=== PATIENT | female | born 1995 | race African-American/Black ===

== ENCOUNTER 2022-08-26 18:58 | Observation (INO) | payer BC ==
[~2022-08-26] VITALS: Ht 165.1 cm; Wt 74.0 kg
[2022-08-26] MEDS ORDERED: HYDR500C3 PO (19:06)
[2022-08-26] MEDS ORDERED: PENI500T PO (19:06)
[2022-08-26] MEDS ORDERED: FOLI1TAB11 PO (19:06)
[2022-08-26] MEDS ORDERED: ONDANSETRON 4MG 2ML VIAL IV ONE (20:20)
[2022-08-26] MEDS ORDERED: MORPHINE 4 MG/ML 1ML VIAL IV ONE ×4 (20:20→23:10)
[2022-08-26] MEDS ORDERED: NS 1,000 ML IV ONE ×2 (20:20→21:05)
[2022-08-26 20:48] LABS: ALBUMIN 3.8 G/DL (3.2-5.2); BILIRUBIN,DIRECT 0.6 MG/DL (<0.4); BILIRUBIN,TOTAL 5.4 MG/DL (0.3-1.2); TOTAL PROTEIN 6.9 G/DL (5.7-8.2)
[2022-08-26 20:52] LABS: MEAN CORPUSCULAR HEMOGLOBIN 35.1 pg (27.0-33.0); MEAN CORPUSCULAR VOLUME 90.4 fl (80.0-96.0); PLATELET COUNT, AUTOMATED 447 10^3/uL (150-450); RED BLOOD COUNT 1.88 10^6/uL (4.00-5.40); WHITE BLOOD COUNT 11.9 10^3/uL (4.0-10.0)
[2022-08-26 20:57] LABS: HEMOGLOBIN 6.6 g/dl (12.0-15.5)
[2022-08-26 20:59] LABS: MEAN CORPUSCULAR HGB CONC 38.8 g/dl (32.0-36.5)
[2022-08-26 21:15] LABS: PLATELET ESTIMATE INCREASED (NORMAL)
[2022-08-26 21:25] LABS: ANISOCYTOSIS 4+; BASOPHILS 3 % (0-1); EOSINOPHILS 12 % (0-3); LYMPHOCYTES 53 % (16-44); NEUTROPHILS 31 % (28-66)
[2022-08-26 21:27] LABS: MONOCYTES 1 % (0-5); SICKLE CELLS 4+
[2022-08-26 21:29] LABS: GIANT PLATELETS 1+
[2022-08-26 21:30] LABS: OVALOCYTES 2+
[2022-08-26 23:00] VITALS: BP 108/55
[2022-08-26 23:15] VITALS: BP 109/56
[2022-08-26] MEDS ORDERED: PERCOCET 5MG/325MG TAB PO ONE (23:25)
[2022-08-26] MEDS ORDERED: HOME MED LIST COMPLETE! XX SCH (23:45)
[2022-08-26] MEDS ORDERED: PROMETHAZINE 25MG/ML 1ML VIAL IV PRN (23:45)
[2022-08-26] MEDS ORDERED: ACETAMINOPHEN TAB 650MG DOSE (2X325MG) PO PRN (23:45)
[2022-08-26] MEDS ORDERED: NORCO, ANEXSIA 5/325MG TABLET (HYDROcodone/ACETAMINOPHEN) PO PRN (23:45)
[2022-08-27 00:17] LABS: RSV AMPLIFICATION NEGATIVE (NEGATIVE)
[2022-08-27 00:58] VITALS: BP 110/74
[2022-08-27 01:18] VITALS: BP 112/60
[2022-08-27] MEDS: NS 1,000 ML IV SCH ×2 (01:20→09:13)
[2022-08-27] MEDS: MORPHINE 4 MG/ML 1ML VIAL IV PRN ×2 (02:49→09:13)
[2022-08-27 06:05] VITALS: BP 112/58
[2022-08-27 07:14] LABS: MEAN CORPUSCULAR HEMOGLOBIN 34.3 pg (27.0-33.0); MEAN CORPUSCULAR HGB CONC 37.2 g/dl (32.0-36.5); MEAN CORPUSCULAR VOLUME 92.2 fl (80.0-96.0); PLATELET COUNT, AUTOMATED 393 10^3/uL (150-450); RED BLOOD COUNT 2.04 10^6/uL (4.00-5.40); WHITE BLOOD COUNT 10.7 10^3/uL (4.0-10.0)
[2022-08-27 07:16] LABS: HEMATOCRIT 18.8 % (36.0-47.0)
[2022-08-27 07:17] LABS: ALBUMIN 3.2 G/DL (3.2-5.2); ALKALINE PHOSPHATASE 51 U/L (46-116); ALT/SGPT 19 U/L (7.0-40); AST/SGOT 44 U/L (<34); BILIRUBIN,TOTAL 3.7 MG/DL (0.3-1.2); BLOOD UREA NITROGEN 12 MG/DL (9-23); CALCIUM LEVEL 8.3 MG/DL (8.5-10.1); CARBON DIOXIDE LEVEL 23 MMOL/L (20-31); CHLORIDE LEVEL 112 MMOL/L (98-107); CREATININE FOR GFR 0.43 MG/DL (0.55-1.30); GLOMERULAR FILTRATION RATE > 60.0 (>60); GLUCOSE, FASTING 92 MG/DL (60-100); POTASSIUM SERUM 4.7 MMOL/L (3.5-5.1); SODIUM LEVEL 139 MMOL/L (136-145); TOTAL PROTEIN 6.1 G/DL (5.7-8.2)
[2022-08-27] MEDS ORDERED: ENOXAPARIN 40MG/0.4ML SYRINGE (J1650 PER 10MG) SC SCH (09:00)
[2022-08-27] MEDS ORDERED: NORCO, ANEXSIA 5/325MG TABLET (HYDROcodone/ACETAMINOPHEN) PO PRN (12:10)
[2022-08-27 12:27] LABS: LDH LACTATE DEHYDROGENASE 661 U/L (120-246)
[2022-08-27] MEDS ORDERED: HYDR-3715 PO (12:40)
[2022-08-27] MEDS ORDERED: diphenhydrAMINE 25MG CAP PO ONE (13:30)
[2022-08-27 13:36] LABS: IRON (FE) 86 UG/DL (50-170); PERCENT SATURATION 35.8 % (13.2-45.0); TOTAL IRON BINDING CAPACITY 240 UG/DL (250-425)
[2022-08-27 13:37] LABS: FERRITIN 325.7 NG/ML (7.3-270.7)
== END 2022-08-27 13:50 | disposition home or self-care (01) ==
LOC: M ED 18:58 → M ED INP 18:59 → M MS5PR 08-27 01:12
PROVIDERS: ADMIT Family Medicine; ATTEND Internal Medicine Nephrology
DX: D57.00 Hb-SS disease with crisis, unspecified (principal); M54.9 Dorsalgia, unspecified; J45.909 Unspecified asthma, uncomplicated; E80.6 Other disorders of bilirubin metabolism; Z90.81 Acquired absence of spleen; K80.20 Calculus of gallbladder without cholecystitis without obstruction; Z87.19 Personal history of other diseases of the digestive system; Z79.899 Other long term (current) drug therapy; Z79.2 Long term (current) use of antibiotics
CPT/HCPCS: 36415; 36430; 80047; 80053; 80076; 81001; 82728; 83550; 83615; 83690; 84702; 85025; 85027; 85046; 86850; 86900; 86901; 86920; 87086; 87631; 96372; 96374; 96375; 96376; 99285; J1650; J2405; P9016

== ENCOUNTER 2022-11-11 10:32 | Inpatient (IN) | payer BC ==
[~2022-11-11] VITALS: Ht 167.6 cm; Wt 82.4 kg
[2022-11-11] MEDS: FOLIC ACID 1MG TAB PO SCH (09:00)
[~2022-11-11 10:32] MED LIST: FOLI1TAB11 PO; HYDR-3715 PO; HYDR500C3 PO; PENI500T PO
[2022-11-11] MEDS ORDERED: ONDANSETRON 4MG 2ML VIAL IV ONE (13:05)
[2022-11-11] MEDS: MORPHINE 4 MG/ML 1ML VIAL IV PRN ×4 (13:28→17:56)
[2022-11-11 13:36] LABS: BASO # 0.1 10^3/uL (0.0-0.2); EOS # 0.9 10^3/uL (0.0-0.5); EOS % 8.3 % (0.0-3.0); LYMPH # 3.4 10^3/uL (1.5-5.0); LYMPH % 32.8 % (24.0-44.0); MEAN CORPUSCULAR HEMOGLOBIN 34.2 pg (27.0-33.0); MEAN CORPUSCULAR VOLUME 92.5 fl (80.0-96.0); MONO # 0.7 10^3/uL (0.0-0.8); MONO % 6.9 % (2.0-8.0); NEUTROPHILS # 5.2 10^3/uL (1.5-8.5); NEUTROPHILS % 50.5 % (36.0-66.0); PLATELET COUNT, AUTOMATED 457 10^3/uL (150-450); RED BLOOD COUNT 1.99 10^6/uL (4.00-5.40); WHITE BLOOD COUNT 10.4 10^3/uL (4.0-10.0)
[2022-11-11 13:42] LABS: HEMATOCRIT 18.4 % (36.0-47.0); HEMOGLOBIN 6.8 g/dl (12.0-15.5)
[2022-11-11 13:50] LABS: INR 1.06
[2022-11-11 13:51] LABS: PARTIAL THROMBOPLASTIN TIME 27.2 SECONDS (24.8-34.2)
[2022-11-11 13:54] LABS: LIPASE 27 U/L (12-53)
[2022-11-11 13:56] LABS: ALBUMIN 3.9 G/DL (3.2-5.2); ALKALINE PHOSPHATASE 60 U/L (46-116); ALT/SGPT 26 U/L (7.0-40); AST/SGOT 43 U/L (<34); BILIRUBIN,DIRECT 0.6 MG/DL (<0.4); BLOOD UREA NITROGEN 9 MG/DL (9-23); CALCIUM LEVEL 8.7 MG/DL (8.5-10.1); CARBON DIOXIDE LEVEL 21 MMOL/L (20-31); CHLORIDE LEVEL 112 MMOL/L (98-107); CK-MB VALUE MASS < 1.0 NG/ML (<3.6); CREATININE FOR GFR 0.45 MG/DL (0.55-1.30); GLOMERULAR FILTRATION RATE > 60.0 (>60); GLUCOSE, FASTING 79 MG/DL (60-100); POTASSIUM SERUM 4.3 MMOL/L (3.5-5.1); SODIUM LEVEL 140 MMOL/L (136-145); TOTAL PROTEIN 7.1 G/DL (5.7-8.2)
[2022-11-11 14:04] LABS: CPK CREATINE PHOSPHOKINASE 57 U/L (34-145); MB/CK RELATIVE INDEX 1.75 (< OR =4)
[2022-11-11 14:47] LABS: VENOUS BASE EXCESS -4.8 (-2.0-2.0); VENOUS HCO3 17.9 MMOL/L (23.0-27.0); VENOUS O2 SATURATION 99.1 % (60.0-80.0); VENOUS PARTIAL PRESSURE CO2 23.5 mmHg (38.0-50.0); VENOUS PARTIAL PRESSURE O2 160.7 mmHg (30.0-50.0); VENOUS PH 7.499 UNITS (7.330-7.430); VENOUS STANDARD HCO3 20.5 MMOL/L; VENOUS TOTAL CO2 18.6 MMOL/L (24.0-28.0)
[2022-11-11] MEDS ORDERED: ISOVUE-370 76% 100ML VIAL As Ordered ONE (14:47)
[2022-11-11] MEDS ORDERED: MED REC IN PROGRESS XX SCH (15:55)
[2022-11-11] MEDS ORDERED: NS 1,000 ML IV ONE (16:05)
[2022-11-11] MEDS ORDERED: HYDROMORPHONE HCL 0.5 MG/ 0.5 ML SYRINGE IV PRN ×2 (16:10→16:15)
[2022-11-11] MEDS ORDERED: HOME MED LIST COMPLETE! XX SCH (16:20)
[2022-11-11] MEDS ORDERED: ALBUTEROL 90 MCG/ACT 8GM HFA INHALER INH PRN (16:40)
[2022-11-11 16:49] LABS: LDH LACTATE DEHYDROGENASE 693 U/L (120-246)
[2022-11-11] MEDS: ONDANSETRON 4MG 2ML VIAL IV PRN (18:04)
[2022-11-11] MEDS: LR 1,000 ML IV SCH (20:19)
[2022-11-11 21:00] VITALS: BP 108/55; TEMP 97.2; O2SAT 100
[2022-11-11] MEDS ORDERED: MORPHINE 2 MG/ML 1ML VIAL IV PRN (21:20)
[2022-11-11 21:30] VITALS: O2SAT 96
[2022-11-11] MEDS ORDERED: ALBUTEROL SULFATE 2.5MG/0.5ML INH NEB SOLN NEB ONE (21:30)
[2022-11-11] MEDS: PENICILLIN V POTASSIUM 500 MG TAB PO SCH (21:52)
[2022-11-11] MEDS: ENOXAPARIN 40MG/0.4ML SYRINGE (J1650 PER 10MG) SC SCH (21:53)
[2022-11-12] VITALS (13 sets, daily range): BP systolic 93–114; BP diastolic 50–58; TEMP 97.4–99.5; O2SAT 87–98
[2022-11-12] MEDS: MORPHINE 4 MG/ML 1ML VIAL IV PRN ×5 (03:43→23:18)
[2022-11-12] MEDS: LR 1,000 ML IV SCH ×3 (04:43→23:18)
[2022-11-12] MEDS: ACETAMINOPHEN TAB 650MG DOSE (2X325MG) PO PRN ×2 (06:05→13:35)
[2022-11-12 06:34] LABS: MEAN CORPUSCULAR HEMOGLOBIN 34.5 pg (27.0-33.0); PLATELET COUNT, AUTOMATED 371 10^3/uL (150-450); RED BLOOD COUNT 1.68 10^6/uL (4.00-5.40); WHITE BLOOD COUNT 10.4 10^3/uL (4.0-10.0)
[2022-11-12 06:51] LABS: HEMATOCRIT 15.8 % (36.0-47.0); HEMOGLOBIN 5.8 g/dl (12.0-15.5)
[2022-11-12 06:52] LABS: MEAN CORPUSCULAR HGB CONC 36.7 g/dl (32.0-36.5)
[2022-11-12 07:03] LABS: ALBUMIN 3.2 G/DL (3.2-5.2); ALKALINE PHOSPHATASE 75 U/L (46-116); ALT/SGPT 65 U/L (7.0-40); AST/SGOT 115 U/L (<34); BILIRUBIN,TOTAL 6.9 MG/DL (0.3-1.2); BLOOD UREA NITROGEN 8 MG/DL (9-23); CALCIUM LEVEL 7.9 MG/DL (8.5-10.1); CARBON DIOXIDE LEVEL 23 MMOL/L (20-31); CHLORIDE LEVEL 110 MMOL/L (98-107); CREATININE FOR GFR 0.56 MG/DL (0.55-1.30); GLOMERULAR FILTRATION RATE > 60.0 (>60); GLUCOSE, FASTING 97 MG/DL (60-100); POTASSIUM SERUM 4.7 MMOL/L (3.5-5.1); SODIUM LEVEL 140 MMOL/L (136-145); TOTAL PROTEIN 5.9 G/DL (5.7-8.2)
[2022-11-12] MEDS: FOLIC ACID 1MG TAB PO SCH (09:13)
[2022-11-12] MEDS: PENICILLIN V POTASSIUM 500 MG TAB PO SCH ×2 (09:14→20:11)
[2022-11-12] MEDS: HYDROXYUREA 500 MG CAP PO SCH (09:14)
[2022-11-12] MEDS ORDERED: diphenhydrAMINE 25MG CAP PO ONE (14:45)
[2022-11-12 14:57] LABS: HEMOGLOBIN 7.2 g/dl (12.0-15.5)
[2022-11-12 15:04] LABS: HEMATOCRIT 19.6 % (36.0-47.0)
[2022-11-12] MEDS: ENOXAPARIN 40MG/0.4ML SYRINGE (J1650 PER 10MG) SC SCH (20:11)
[2022-11-12] MEDS ORDERED: MORPHINE 4 MG/ML 1ML VIAL IV ONE (23:50)
[2022-11-12] MEDS: ONDANSETRON 4MG 2ML VIAL IV PRN (23:55)
[2022-11-13] VITALS (21 sets, daily range): BP systolic 101–135; BP diastolic 54–84; TEMP 97–98.6; O2SAT 88–100
[2022-11-13] MEDS ORDERED: KETOROLAC 30 MG/ML 1ML VIAL IV ONE (01:00)
[2022-11-13 06:44] LABS: BLOOD UREA NITROGEN 12 MG/DL (9-23); CALCIUM LEVEL 8.2 MG/DL (8.5-10.1); CARBON DIOXIDE LEVEL 25 MMOL/L (20-31); CHLORIDE LEVEL 111 MMOL/L (98-107); CREATININE FOR GFR 0.54 MG/DL (0.55-1.30); GLOMERULAR FILTRATION RATE > 60.0 (>60); GLUCOSE, FASTING 94 MG/DL (60-100); POTASSIUM SERUM 4.8 MMOL/L (3.5-5.1); SODIUM LEVEL 143 MMOL/L (136-145)
[2022-11-13 07:46] LABS: MEAN CORPUSCULAR HEMOGLOBIN 34.4 pg (27.0-33.0); MEAN CORPUSCULAR VOLUME 91.3 fl (80.0-96.0); PLATELET COUNT, AUTOMATED 371 10^3/uL (150-450); RED BLOOD COUNT 1.95 10^6/uL (4.00-5.40); WHITE BLOOD COUNT 9.2 10^3/uL (4.0-10.0)
[2022-11-13 07:50] LABS: HEMOGLOBIN 6.7 g/dl (12.0-15.5)
[2022-11-13 07:51] LABS: HEMATOCRIT 17.8 % (36.0-47.0); MEAN CORPUSCULAR HGB CONC 37.6 g/dl (32.0-36.5)
[2022-11-13] MEDS ORDERED: KETOROLAC 30 MG/ML 1ML VIAL IV SCH (08:00)
[2022-11-13 08:27] LABS: EOSINOPHILS 14 % (0-3); LYMPHOCYTES 49 % (16-44); MONOCYTES 2 % (0-5); NEUTROPHILS 35 % (28-66)
[2022-11-13 08:28] LABS: HYPOCHROMASIA 1+; PLATELET CLUMPS SMALL AMT; PLATELET ESTIMATE NORMAL (NORMAL); SICKLE CELLS 4+
[2022-11-13 08:29] LABS: POLYCHROMASIA 1+
[2022-11-13 08:30] LABS: ANISOCYTOSIS 1+; POIKILOCYTOSIS 1+
[2022-11-13] MEDS ORDERED: PERCOCET 5MG/325MG TAB PO PRN ×2 (08:35)
[2022-11-13] MEDS: LR 1,000 ML IV SCH ×2 (08:44→20:16)
[2022-11-13] MEDS: FOLIC ACID 1MG TAB PO SCH (08:45)
[2022-11-13] MEDS: PENICILLIN V POTASSIUM 500 MG TAB PO SCH ×2 (08:45→20:14)
[2022-11-13] MEDS: HYDROXYUREA 500 MG CAP PO SCH (08:46)
[2022-11-13] MEDS: KETOROLAC 30 MG/ML 1ML VIAL IV SCH ×3 (08:54→20:15)
[2022-11-13] MEDS ORDERED: MIRALAX *UNIT DOSE* 17GM PACKET PO PRN (10:00)
[2022-11-13] MEDS: DOCUSATE SODIUM 100MG CAPSULE PO SCH ×3 (12:02→22:03)
[2022-11-13] MEDS: ONDANSETRON 4MG 2ML VIAL IV PRN ×2 (13:52→20:26)
[2022-11-13] MEDS: oxyCODONE 5MG TAB PO PRN (17:22)
[2022-11-13] MEDS: ENOXAPARIN 40MG/0.4ML SYRINGE (J1650 PER 10MG) SC SCH (20:14)
[2022-11-13] MEDS: SENNA 8.6 MG TAB (SENOKOT) PO SCH ×2 (20:15→22:04)
[2022-11-13 20:38] LABS: HEMATOCRIT 28.1 % (36.0-47.0); HEMOGLOBIN 10.3 g/dl (12.0-15.5); MEAN CORPUSCULAR HEMOGLOBIN 32.3 pg (27.0-33.0); MEAN CORPUSCULAR HGB CONC 36.7 g/dl (32.0-36.5); MEAN CORPUSCULAR VOLUME 88.1 fl (80.0-96.0); PLATELET COUNT, AUTOMATED 374 10^3/uL (150-450); RED BLOOD COUNT 3.19 10^6/uL (4.00-5.40); WHITE BLOOD COUNT 7.6 10^3/uL (4.0-10.0)
[2022-11-13] MEDS ORDERED: PROMETHAZINE 25MG/ML 1ML VIAL IV ONE (20:55)
[2022-11-13 21:28] LABS: VENOUS BASE EXCESS -3.3 (-2.0-2.0); VENOUS HCO3 21.6 MMOL/L (23.0-27.0); VENOUS O2 SATURATION 92.3 % (60.0-80.0); VENOUS PARTIAL PRESSURE CO2 38.4 mmHg (38.0-50.0); VENOUS PARTIAL PRESSURE O2 89.6 mmHg (30.0-50.0); VENOUS PH 7.368 UNITS (7.330-7.430); VENOUS STANDARD HCO3 21.6 MMOL/L; VENOUS TOTAL CO2 22.8 MMOL/L (24.0-28.0)
[2022-11-13] MEDS ORDERED: MORPHINE 2 MG/ML 1ML VIAL IV ONE (21:55)
[2022-11-13 22:07] LABS: CK-MB VALUE MASS < 1.0 NG/ML (<3.6)
[2022-11-13 22:09] LABS: CPK CREATINE PHOSPHOKINASE 54 U/L (34-145); MB/CK RELATIVE INDEX 1.85 (< OR =4)
[2022-11-13] MEDS ORDERED: FUROSEMIDE 20MG/2ML VIAL IV ONE (23:00)
[2022-11-13] MEDS: cefTRIAXone SOD 1 GM in D5W MINI-BAG PLUS 50 ML IV SCH (23:50)
[2022-11-14] VITALS: BP 120/72; TEMP 97.4; O2SAT 98
[2022-11-14 00:58] VITALS: BP 115/78; TEMP 97.5; O2SAT 93
[2022-11-14] MEDS: DOXYCYCLINE HYCLATE 100 MG in D5W MINI-BAG PLUS 100 ML IV SCH ×2 (01:22→12:44)
[2022-11-14] MEDS: oxyCODONE 5MG TAB PO PRN ×2 (01:23→21:44)
[2022-11-14] MEDS: KETOROLAC 30 MG/ML 1ML VIAL IV SCH ×4 (04:35→21:32)
[2022-11-14 06:00] VITALS: BP 114/78; TEMP 98.1; O2SAT 94
[2022-11-14 06:05] LABS: HEMATOCRIT 27.7 % (36.0-47.0); HEMOGLOBIN 10.4 g/dl (12.0-15.5); MEAN CORPUSCULAR HEMOGLOBIN 32.7 pg (27.0-33.0); MEAN CORPUSCULAR VOLUME 87.1 fl (80.0-96.0); PLATELET COUNT, AUTOMATED 390 10^3/uL (150-450); RED BLOOD COUNT 3.18 10^6/uL (4.00-5.40); WHITE BLOOD COUNT 8.3 10^3/uL (4.0-10.0)
[2022-11-14 06:13] LABS: MEAN CORPUSCULAR HGB CONC 37.5 g/dl (32.0-36.5)
[2022-11-14 06:30] LABS: PROCALCITONIN 0.04 ng/ml
[2022-11-14 06:35] LABS: ALBUMIN 3.4 G/DL (3.2-5.2); ALKALINE PHOSPHATASE 90 U/L (46-116); ALT/SGPT 171 U/L (7.0-40); AST/SGOT 237 U/L (<34); BILIRUBIN,TOTAL 9.6 MG/DL (0.3-1.2); BLOOD UREA NITROGEN 14 MG/DL (9-23); CALCIUM LEVEL 8.6 MG/DL (8.5-10.1); CARBON DIOXIDE LEVEL 26 MMOL/L (20-31); CHLORIDE LEVEL 109 MMOL/L (98-107); CREATININE FOR GFR 0.57 MG/DL (0.55-1.30); GLOMERULAR FILTRATION RATE > 60.0 (>60); GLUCOSE, FASTING 89 MG/DL (60-100); POTASSIUM SERUM 4.9 MMOL/L (3.5-5.1); SODIUM LEVEL 142 MMOL/L (136-145); TOTAL PROTEIN 6.3 G/DL (5.7-8.2)
[2022-11-14] MEDS: DOCUSATE SODIUM 100MG CAPSULE PO SCH ×2 (09:25→21:32)
[2022-11-14] MEDS: FOLIC ACID 1MG TAB PO SCH (09:25)
[2022-11-14] MEDS: HYDROXYUREA 500 MG CAP PO SCH (09:25)
[2022-11-14 14:00] VITALS: BP 115/78; TEMP 98.1; O2SAT 93
[2022-11-14] MEDS ORDERED: FUROSEMIDE 20MG/2ML VIAL IV ONE (15:20)
[2022-11-14 15:38] LABS: BILIRUBIN,DIRECT 2.4 MG/DL (<0.4)
[2022-11-14 20:00] VITALS: BP 120/80; TEMP 97.9; O2SAT 90
[2022-11-14] MEDS: SENNA 8.6 MG TAB (SENOKOT) PO SCH (21:32)
[2022-11-14] MEDS: ENOXAPARIN 40MG/0.4ML SYRINGE (J1650 PER 10MG) SC SCH (21:32)
[2022-11-14] MEDS: cefTRIAXone SOD 1 GM in D5W MINI-BAG PLUS 50 ML IV SCH (21:44)
[2022-11-15] MEDS: DOXYCYCLINE HYCLATE 100 MG in D5W MINI-BAG PLUS 100 ML IV SCH ×2 (01:00→12:27)
[2022-11-15] MEDS: KETOROLAC 30 MG/ML 1ML VIAL IV SCH ×2 (02:10→08:16)
[2022-11-15 05:58] LABS: HEMATOCRIT 25.1 % (36.0-47.0); HEMOGLOBIN 9.1 g/dl (12.0-15.5); MEAN CORPUSCULAR HEMOGLOBIN 31.5 pg (27.0-33.0); MEAN CORPUSCULAR HGB CONC 36.3 g/dl (32.0-36.5); MEAN CORPUSCULAR VOLUME 86.9 fl (80.0-96.0); PLATELET COUNT, AUTOMATED 337 10^3/uL (150-450); RED BLOOD COUNT 2.89 10^6/uL (4.00-5.40)
[2022-11-15 06:00] VITALS: BP 116/72; TEMP 97.7; O2SAT 94
[2022-11-15 06:29] LABS: ALBUMIN 3.2 G/DL (3.2-5.2); ALKALINE PHOSPHATASE 95 U/L (46-116); ALT/SGPT 151 U/L (7.0-40); AST/SGOT 97 U/L (<34); BILIRUBIN,TOTAL 6.4 MG/DL (0.3-1.2); BLOOD UREA NITROGEN 22 MG/DL (9-23); CALCIUM LEVEL 8.4 MG/DL (8.5-10.1); CARBON DIOXIDE LEVEL 26 MMOL/L (20-31); CHLORIDE LEVEL 110 MMOL/L (98-107); CREATININE FOR GFR 0.57 MG/DL (0.55-1.30); GLOMERULAR FILTRATION RATE > 60.0 (>60); GLUCOSE, FASTING 107 MG/DL (60-100); POTASSIUM SERUM 4.1 MMOL/L (3.5-5.1); SODIUM LEVEL 143 MMOL/L (136-145)
[2022-11-15] MEDS: oxyCODONE 5MG TAB PO PRN (06:30)
[2022-11-15] MEDS ORDERED: FUROSEMIDE 20MG/2ML VIAL IV ONE (08:00)
[2022-11-15] MEDS: FOLIC ACID 1MG TAB PO SCH (08:16)
[2022-11-15] MEDS: DOCUSATE SODIUM 100MG CAPSULE PO SCH (08:16)
[2022-11-15] MEDS ORDERED: traMADol 50 MG TAB PO PRN (11:15)
[2022-11-15] MEDS ORDERED: TRAM50TA2 PO (11:25)
[2022-11-15] MEDS ORDERED: CEFU50TA PO (11:25)
[2022-11-15] MEDS ORDERED: COLA100C5 PO (11:25)
[2022-11-15] MEDS ORDERED: DOXY-444 PO (11:25)
[2022-11-15] MEDS ORDERED: LASI20TA3 PO (11:28)
== END 2022-11-15 13:35 | disposition home or self-care (01) | DRG 662 ==
LOC: M ED 10:32 → M ED INP 16:06 → ENRESERV 19:54 → M PED 20:45 → OBSVTOIN 11-13 07:59 → M MSPAV 11-14 00:57
PROVIDERS: ADMIT Internal Medicine; ATTEND Internal Medicine
PROC: 30233N1 Transfusion of Nonautologous Red Blood Cells into Peripheral Vein, Percutaneous Approach (ICD-10-PCS; 2022-11-13)
PROC: B246ZZZ Ultrasonography of Right and Left Heart (ICD-10-PCS; principal; 2022-11-14)
DX: D57.00 Hb-SS disease with crisis, unspecified (principal); J98.11 Atelectasis; J45.20 Mild intermittent asthma, uncomplicated; K59.03 Drug induced constipation; Z90.81 Acquired absence of spleen; Z79.899 Other long term (current) drug therapy; Z91.013 Allergy to seafood; Z91.018 Allergy to other foods; Z91.048 Other nonmedicinal substance allergy status; R91.1 Solitary pulmonary nodule; T40.605A Adverse effect of unspecified narcotics, initial encounter

== ENCOUNTER → 2022-11-20 | Outpatient (CLI) | payer BC ==
[~2022-11-20] MED LIST changes: +CEFU50TA PO; +COLA100C5 PO; +DOXY-444 PO; +LASI20TA3 PO; +TRAM50TA2 PO
[2022-11-20 16:14] LABS: HEMATOCRIT 27.5 % (36.0-47.0); HEMOGLOBIN 9.3 g/dl (12.0-15.5); MEAN CORPUSCULAR HEMOGLOBIN 30.8 pg (27.0-33.0); MEAN CORPUSCULAR HGB CONC 33.8 g/dl (32.0-36.5); MEAN CORPUSCULAR VOLUME 91.1 fl (80.0-96.0); PLATELET COUNT, AUTOMATED 516 10^3/uL (150-450); RED BLOOD COUNT 3.02 10^6/uL (4.00-5.40); WHITE BLOOD COUNT 8.9 10^3/uL (4.0-10.0)
== END ==
LOC: M LAB 15:34
PROVIDERS: ATTEND Specialist
DX: Z00.00 Encounter for general adult medical examination without abnormal findings (principal)

== ENCOUNTER 2022-11-23 14:02 | Day surgery (SDC) | payer BC ==
[~2022-11-23] VITALS: Ht 167.6 cm; Wt 74.8 kg
[~2022-11-23 14:02] MED LIST changes: +CelecoXIB 400 MG CAP PO ONE; +ceFAZolin SOD 2 GM in IV 1 EA IV ONE
[2022-11-23 14:38] LABS: HEMATOCRIT 27.7 % (36.0-47.0); HEMOGLOBIN 8.4 g/dl (12.0-15.5); MEAN CORPUSCULAR HEMOGLOBIN 30.7 pg (27.0-33.0); MEAN CORPUSCULAR HGB CONC 30.3 g/dl (32.0-36.5); MEAN CORPUSCULAR VOLUME 101.1 fl (80.0-96.0); PLATELET COUNT, AUTOMATED 588 10^3/uL (150-450); RED BLOOD COUNT 2.74 10^6/uL (4.00-5.40); WHITE BLOOD COUNT 8.9 10^3/uL (4.0-10.0)
[2022-11-23 15:03] LABS: BLOOD UREA NITROGEN 13 MG/DL (9-23); CALCIUM LEVEL 9.3 MG/DL (8.5-10.1); CARBON DIOXIDE LEVEL 23 MMOL/L (20-31); CHLORIDE LEVEL 107 MMOL/L (98-107); CREATININE FOR GFR 0.47 MG/DL (0.55-1.30); GLOMERULAR FILTRATION RATE > 60.0 (>60); GLUCOSE, FASTING 98 MG/DL (60-100); POTASSIUM SERUM 4.3 MMOL/L (3.5-5.1); SODIUM LEVEL 139 MMOL/L (136-145)
[2022-11-23] MEDS ORDERED: INDOCYANINE GREEN 25MG VIAL (IC-GREEN) As Ordered ONE (17:10)
[2022-11-23] MEDS ORDERED: LIDOCAINE 1% SDV 30ML VIAL As Ordered ONE (17:10)
[2022-11-23] MEDS ORDERED: fentaNYL 250 MCG/5 ML INJECTION As Ordered ONE (18:09)
[2022-11-23] MEDS ORDERED: ROCURONIUM BROMIDE 50MG/5ML VIAL As Ordered ONE ×2 (18:09→21:23)
[2022-11-23] MEDS ORDERED: KETOROLAC 60MG 2ML VIAL As Ordered ONE (18:09)
[2022-11-23] MEDS ORDERED: LIDOCAINE 2% 100MG/5ML SDV (FOR ANES.) As Ordered ONE (18:09)
[2022-11-23] MEDS ORDERED: SUGAMMADEX SODIUM 500 MG/5 ML VIAL (BRIDION) As Ordered ONE (18:09)
[2022-11-23] MEDS ORDERED: propofoL 200 MG/20 ML VIAL As Ordered ONE (18:09)
[2022-11-23] MEDS ORDERED: ONDANSETRON 4MG 2ML VIAL As Ordered ONE (18:09)
[2022-11-23] MEDS ORDERED: MIDAZOLAM INJ 2MG/2ML VIAL As Ordered ONE (18:09)
[2022-11-23] MEDS ORDERED: ACETAMINOPHEN 1000MG 100ML IV BAG As Ordered ONE (20:29)
[2022-11-23] MEDS ORDERED: HYDROmorphone HCL 2MG/ML 1ML VIAL As Ordered ONE (20:54)
[2022-11-23] MEDS ORDERED: oxyCODONE 5MG TAB PO PRN (22:00)
[2022-11-23] MEDS ORDERED: LR 1,000 ML IV SCH (22:00)
[2022-11-23] MEDS ORDERED: ONDANSETRON 4MG 2ML VIAL IV PRN (22:00)
[2022-11-23] MEDS ORDERED: fentaNYL 100 MCG/2 ML INJECTION IV PRN (22:00)
[2022-11-23] MEDS ORDERED: HYDROMORPHONE HCL 0.5 MG/ 0.5 ML SYRINGE IV PRN (22:00)
[2022-11-23 23:01] VITALS: BP 123/66; TEMP 97.6; O2SAT 99
== END 2022-11-23 23:07 | disposition home or self-care (01) ==
LOC: M SDC 14:02
PROVIDERS: ATTEND Surgery
DX: K80.10 Calculus of gallbladder with chronic cholecystitis without obstruction (principal); D57.1 Sickle-cell disease without crisis; R16.0 Hepatomegaly, not elsewhere classified; K66.0 Peritoneal adhesions (postprocedural) (postinfection); K80.50 Calculus of bile duct without cholangitis or cholecystitis without obstruction; Z91.048 Other nonmedicinal substance allergy status; Z91.013 Allergy to seafood; Z91.018 Allergy to other foods; Z79.2 Long term (current) use of antibiotics
CPT/HCPCS: 36415; 47563; 64488; 80048; 81025; 85027; 88304; J0131; J0665; J0690; J1100; J1170; J1885; J2250; J2405; J3010; Q9968; S2900

== ENCOUNTER → 2023-01-03 | Outpatient (REF) ==
[~2023-01-03] MED LIST changes: -CelecoXIB 400 MG CAP PO ONE; -ceFAZolin SOD 2 GM in IV 1 EA IV ONE
[2023-01-05 07:08] LABS: HERPES ZOSTER, VARICELLA IgG <135 index (Immune >165); RUBEOLA IgG ANTIBODY <13.5 AU/mL (Immune >16.4)
== END ==
LOC: M LAB 14:10
PROVIDERS: ATTEND Nurse Practitioner Adult Health
DX: Z02.89 Encounter for other administrative examinations (principal)

== ENCOUNTER 2023-03-12 05:12 | Observation (INO) | payer BC ==
[~2023-03-12] VITALS: Ht 167.6 cm; Wt 81.3 kg
[2023-03-12] MEDS ORDERED: NS 1,000 ML IV ONE (05:45)
[2023-03-12] MEDS ORDERED: MORPHINE 2 MG/ML 1ML VIAL IV ONE ×2 (05:45→06:15)
[2023-03-12] MEDS ORDERED: KETOROLAC 30 MG/ML 1ML VIAL IV ONE (06:30)
[2023-03-12 06:39] LABS: HEMOGLOBIN 7.1 g/dl (12.0-15.5); MEAN CORPUSCULAR HEMOGLOBIN 34.1 pg (27.0-33.0); MEAN CORPUSCULAR HGB CONC 36.6 g/dl (32.0-36.5); MEAN CORPUSCULAR VOLUME 93.3 fl (80.0-96.0); PLATELET COUNT, AUTOMATED 419 10^3/uL (150-450); RED BLOOD COUNT 2.08 10^6/uL (4.00-5.40)
[2023-03-12 06:51] LABS: INR 1.15; PROTHROMBIN TIME 14.4 SECONDS (12.5-14.5)
[2023-03-12 06:54] LABS: CK-MB VALUE MASS < 1.0 NG/ML (<3.6)
[2023-03-12 06:55] LABS: LIPASE 33 U/L (12-53)
[2023-03-12 06:57] LABS: ALBUMIN 3.7 G/DL (3.2-5.2); ALKALINE PHOSPHATASE 60 U/L (46-116); ALT/SGPT 29 U/L (7.0-40); AST/SGOT 70 U/L (<34); BILIRUBIN,DIRECT 0.7 MG/DL (<0.4); BILIRUBIN,TOTAL 6.4 MG/DL (0.3-1.2); BLOOD UREA NITROGEN 7 MG/DL (9-23); CARBON DIOXIDE LEVEL 19 MMOL/L (20-31); CHLORIDE LEVEL 109 MMOL/L (98-107); CREATININE FOR GFR 0.44 MG/DL (0.55-1.30); GLOMERULAR FILTRATION RATE > 60.0 (>60); GLUCOSE, FASTING 88 MG/DL (60-100); POTASSIUM SERUM 4.6 MMOL/L (3.5-5.1); SODIUM LEVEL 141 MMOL/L (136-145); TOTAL PROTEIN 7.2 G/DL (5.7-8.2)
[2023-03-12 07:04] LABS: HEMATOCRIT 19.4 % (36.0-47.0); WHITE BLOOD COUNT 14.2 10^3/uL (4.0-10.0)
[2023-03-12 07:11] LABS: CPK CREATINE PHOSPHOKINASE 50 U/L (34-145)
[2023-03-12 07:20] LABS: HCG, SERUM QUALITATIVE NEGATIVE (NEGATIVE)
[2023-03-12 07:36] LABS: RSV AMPLIFICATION NEGATIVE (NEGATIVE)
[2023-03-12 07:37] LABS: ATYPICAL LYMPH 18 % (0-5); EOSINOPHILS 6 % (0-3); LYMPHOCYTES 13 % (16-44); MONOCYTES 6 % (0-5); NEUTROPHILS 57 % (28-66)
[2023-03-12 07:38] LABS: PLATELET ESTIMATE INCREASED (NORMAL); POLYCHROMASIA 2+
[2023-03-12 07:48] LABS: SICKLE CELLS 2+
[2023-03-12 07:55] LABS: MICROCYTOSIS 1+; SCHISTOCYTES 2+
[2023-03-12] MEDS ORDERED: MED REC IN PROGRESS XX SCH (08:40)
[2023-03-12] MEDS ORDERED: HYDR500C3 PO (09:03)
[2023-03-12] MEDS ORDERED: PENI500T PO (09:07)
[2023-03-12] MEDS ORDERED: FOLI1TAB11 PO (09:07)
[2023-03-12] MEDS ORDERED: HOME MED LIST COMPLETE! XX SCH (09:15)
[2023-03-12] MEDS ORDERED: ACETAMINOPHEN TAB 650MG DOSE (2X325MG) PO PRN (09:40)
[2023-03-12 10:08] VITALS: BP 111/62; TEMP 97.7; O2SAT 96
[2023-03-12 10:23] VITALS: BP 112/64; TEMP 97.5; O2SAT 95
[2023-03-12] MEDS: PENICILLIN V POTASSIUM 500 MG TAB PO SCH ×2 (10:28→20:13)
[2023-03-12] MEDS: FOLIC ACID 1MG TAB PO SCH (10:28)
[2023-03-12] MEDS: MORPHINE 2 MG/ML 1ML VIAL IV PRN ×4 (10:28→19:33)
[2023-03-12 11:10] VITALS: BP 103/55; TEMP 97.6; O2SAT 98
[2023-03-12 11:53] VITALS: BP 105/56; TEMP 97.7; O2SAT 99
[2023-03-12] MEDS: HYDROXYUREA 500 MG CAP PO SCH (12:18)
[2023-03-12] MEDS: KETOROLAC TROMETHAMINE 10 MG TAB PO PRN ×2 (13:04→17:18)
[2023-03-12 17:26] VITALS: BP 116/69; TEMP 97.9; O2SAT 95
[2023-03-12 20:17] VITALS: BP 114/65; TEMP 97.7; O2SAT 96
[2023-03-13] MEDS: MORPHINE 2 MG/ML 1ML VIAL IV PRN (01:17)
[2023-03-13 06:00] VITALS: BP 112/65; TEMP 98.1; O2SAT 100
[2023-03-13 06:17] LABS: HEMATOCRIT 21.5 % (36.0-47.0); HEMOGLOBIN 7.7 g/dl (12.0-15.5); MEAN CORPUSCULAR HGB CONC 35.8 g/dl (32.0-36.5); MEAN CORPUSCULAR VOLUME 92.3 fl (80.0-96.0); PLATELET COUNT, AUTOMATED 366 10^3/uL (150-450); RED BLOOD COUNT 2.33 10^6/uL (4.00-5.40); WHITE BLOOD COUNT 11.3 10^3/uL (4.0-10.0)
[2023-03-13 06:27] LABS: BLOOD UREA NITROGEN 9 MG/DL (9-23); CALCIUM LEVEL 8.9 MG/DL (8.5-10.1); CARBON DIOXIDE LEVEL 22 MMOL/L (20-31); CHLORIDE LEVEL 110 MMOL/L (98-107); CREATININE FOR GFR 0.43 MG/DL (0.55-1.30); GLOMERULAR FILTRATION RATE > 60.0 (>60); GLUCOSE, FASTING 98 MG/DL (60-100); MAGNESIUM LEVEL 1.8 MG/DL (1.8-2.4); POTASSIUM SERUM 4.5 MMOL/L (3.5-5.1); SODIUM LEVEL 141 MMOL/L (136-145)
[2023-03-13] MEDS: PENICILLIN V POTASSIUM 500 MG TAB PO SCH (08:29)
[2023-03-13] MEDS: HYDROXYUREA 500 MG CAP PO SCH (08:30)
[2023-03-13] MEDS: FOLIC ACID 1MG TAB PO SCH (08:30)
[2023-03-13] MEDS ORDERED: KETO10TAB PO (08:41)
[2023-03-13] MEDS ORDERED: ACET1TAB55 PO (08:41)
[2023-03-13] MEDS ORDERED: MORPHINE 2 MG/ML 1ML VIAL IV PRN (10:00)
== END 2023-03-13 10:35 | disposition home or self-care (01) ==
LOC: M ED 05:12 → M ED INP 09:40 → M MSPAV 17:15
PROVIDERS: ADMIT Family Medicine; ATTEND Family Medicine
DX: D57.00 Hb-SS disease with crisis, unspecified (principal); J45.909 Unspecified asthma, uncomplicated; Z91.048 Other nonmedicinal substance allergy status; Z91.018 Allergy to other foods; Z91.013 Allergy to seafood; Z79.899 Other long term (current) drug therapy; Z79.2 Long term (current) use of antibiotics
CPT/HCPCS: 36415; 36430; 71045; 80048; 80076; 82550; 82553; 83690; 83735; 84484; 84703; 85025; 85027; 85046; 85610; 86850; 86900; 86901; 86920; 87631; 93005; 93041; 94760; 96374; 96375; 96376; 99285; J1885; P9016

== ENCOUNTER 2023-05-07 11:29 | Inpatient (IN) | payer BC ==
[~2023-05-07] VITALS: Ht 167.6 cm; Wt 78.0 kg
[2023-05-07] VITALS (8 sets, daily range): BP systolic 108–119; BP diastolic 53–62; TEMP 96.8–100.2; O2SAT 89–95
[~2023-05-07 11:29] MED LIST changes: +ACET1TAB55 PO; +KETO10TAB PO
[2023-05-07] MEDS ORDERED: ACETAMINOPHEN TAB 650MG DOSE (2X325MG) PO ONE (12:00)
[2023-05-07 12:52] LABS: HEMOGLOBIN 7.1 g/dl (12.0-15.5); MEAN CORPUSCULAR VOLUME 91.9 fl (80.0-96.0); PLATELET COUNT, AUTOMATED 410 10^3/uL (150-450); RED BLOOD COUNT 2.09 10^6/uL (4.00-5.40); WHITE BLOOD COUNT 16.2 10^3/uL (4.0-10.0)
[2023-05-07 12:53] LABS: RSV AMPLIFICATION NEGATIVE (NEGATIVE)
[2023-05-07 13:03] LABS: HEMATOCRIT 19.2 % (36.0-47.0)
[2023-05-07 13:21] LABS: CK-MB VALUE MASS < 1.0 NG/ML (<3.6)
[2023-05-07 13:24] LABS: ALBUMIN 3.5 G/DL (3.2-5.2); ALKALINE PHOSPHATASE 65 U/L (46-116); ALT/SGPT 24 U/L (7.0-40); AST/SGOT 69 U/L (<34); BILIRUBIN,DIRECT 0.8 MG/DL (<0.4); BILIRUBIN,TOTAL 8.1 MG/DL (0.3-1.2); BLOOD UREA NITROGEN 15 MG/DL (9-23); CALCIUM LEVEL 8.2 MG/DL (8.5-10.1); CARBON DIOXIDE LEVEL 20 MMOL/L (20-31); CHLORIDE LEVEL 109 MMOL/L (98-107); GLOMERULAR FILTRATION RATE > 60.0 (>60); GLUCOSE, FASTING 101 MG/DL (60-100); POTASSIUM SERUM 4.7 MMOL/L (3.5-5.1); SODIUM LEVEL 139 MMOL/L (136-145); TOTAL PROTEIN 6.9 G/DL (5.7-8.2)
[2023-05-07 13:26] LABS: FREE T4 1.09 NG/DL (0.89-1.76); HCG, SERUM QUALITATIVE NEGATIVE (NEGATIVE); THYROID STIMULATING HORMONE 0.562 uIU/ML (0.55-4.78)
[2023-05-07 13:28] LABS: CPK CREATINE PHOSPHOKINASE 44 U/L (34-145); MB/CK RELATIVE INDEX 2.27 (< OR =4)
[2023-05-07] MEDS ORDERED: MORPHINE 4 MG/ML 1ML VIAL IV ONE (13:30)
[2023-05-07] MEDS ORDERED: IPRATROPIUM 0.5MG/ALBUTEROL 2.5MG INH SOL UD 3ML (DUONEB) NEB ONE ×2 (13:30→15:35)
[2023-05-07 13:39] LABS: ATYPICAL LYMPH 17 % (0-5); GIANT PLATELETS 1+; LYMPHOCYTES 2 % (16-44); MONOCYTES 7 % (0-5); NEUTROPHILS 74 % (28-66); PLATELET ESTIMATE INCREASED (NORMAL)
[2023-05-07] MEDS ORDERED: methylPREDNISolone 125MG 2ML VIAL IV ONE (13:40)
[2023-05-07 13:42] LABS: POLYCHROMASIA 3+
[2023-05-07 13:43] LABS: SICKLE CELLS 4+
[2023-05-07 13:45] LABS: SCHISTOCYTES 1+
[2023-05-07] MEDS ORDERED: AZITHROMYCIN INJ 500 MG, VIAL MATE ADAPTER 1 EACH in D5W 250 ML IV ONE (14:35)
[2023-05-07] MEDS ORDERED: cefTRIAXone SOD 2 GM in D5W MINI-BAG PLUS 50 ML IV ONE (14:35)
[2023-05-07] MEDS: MORPHINE 4 MG/ML 1ML VIAL IV PRN ×2 (14:52→16:54)
[2023-05-07] MEDS ORDERED: FOLIC ACID 1MG TAB PO STA (14:54)
[2023-05-07] MEDS ORDERED: NS 1,000 ML IV ONE (14:55)
[2023-05-07] MEDS ORDERED: ACETAMINOPHEN 325 MG TAB PO ONE (15:10)
[2023-05-07] MEDS ORDERED: MOM 30ML SUSPENSION UDC PO PRN (15:35)
[2023-05-07] MEDS ORDERED: ISOVUE-370 76% 100ML VIAL As Ordered ONE (16:24)
[2023-05-07] MEDS ORDERED: ACET-907 PO (16:48)
[2023-05-07] MEDS ORDERED: KETO10TAB PO (16:53)
[2023-05-07] MEDS: NS 1,000 ML IV SCH ×2 (16:54→22:13)
[2023-05-07] MEDS ORDERED: HOME MED LIST COMPLETE! XX SCH (16:55)
[2023-05-07] MEDS ORDERED: NALOXONE INJ 0.4MG/1ML VIAL IV PRN (18:00)
[2023-05-07] MEDS: HYDROMORPHONE HCL 0.5 MG/ 0.5 ML SYRINGE IV PRN ×2 (18:32→22:17)
[2023-05-07 18:44] LABS: PROCALCITONIN 0.23 ng/ml
[2023-05-07 20:59] LABS: FOLATE 16.02 NG/ML (>5.4)
[2023-05-08] VITALS (10 sets, daily range): BP systolic 105–112; BP diastolic 49–61; TEMP 97–97.5; O2SAT 89–95
[2023-05-08] MEDS: HYDROMORPHONE HCL 0.5 MG/ 0.5 ML SYRINGE IV PRN ×6 (03:54→21:42)
[2023-05-08] MEDS: ALBUTEROL SULFATE 2.5MG/0.5ML INH NEB SOLN NEB PRN ×2 (04:05→19:38)
[2023-05-08 06:04] LABS: BASO % 0.1 % (0.0-1.0); HEMATOCRIT 21.1 % (36.0-47.0); HEMOGLOBIN 7.8 g/dl (12.0-15.5); LYMPH # 1.4 10^3/uL (1.5-5.0); LYMPH % 12.2 % (24.0-44.0); MEAN CORPUSCULAR HEMOGLOBIN 33.5 pg (27.0-33.0); MEAN CORPUSCULAR VOLUME 90.6 fl (80.0-96.0); MONO # 0.7 10^3/uL (0.0-0.8); MONO % 5.7 % (2.0-8.0); NEUTROPHILS # 9.2 10^3/uL (1.5-8.5); NEUTROPHILS % 81.6 % (36.0-66.0); PLATELET COUNT, AUTOMATED 360 10^3/uL (150-450); RED BLOOD COUNT 2.33 10^6/uL (4.00-5.40); WHITE BLOOD COUNT 11.3 10^3/uL (4.0-10.0)
[2023-05-08 06:26] LABS: ALBUMIN 3.3 G/DL (3.2-5.2); ALKALINE PHOSPHATASE 57 U/L (46-116); ALT/SGPT 21 U/L (7.0-40); AST/SGOT 37 U/L (<34); BILIRUBIN,TOTAL 3.1 MG/DL (0.3-1.2); BLOOD UREA NITROGEN 21 MG/DL (9-23); CALCIUM LEVEL 8.5 MG/DL (8.5-10.1); CARBON DIOXIDE LEVEL 21 MMOL/L (20-31); CHLORIDE LEVEL 110 MMOL/L (98-107); GLOMERULAR FILTRATION RATE > 60.0 (>60); GLUCOSE, FASTING 131 MG/DL (60-100); POTASSIUM SERUM 5.5 MMOL/L (3.5-5.1); SODIUM LEVEL 139 MMOL/L (136-145); TOTAL PROTEIN 6.7 G/DL (5.7-8.2)
[2023-05-08] MEDS ORDERED: KETOROLAC 30 MG/ML 1ML VIAL IV ONE (07:35)
[2023-05-08] MEDS: CYANOCOBALAMIN 500 MCG TAB PO SCH (08:49)
[2023-05-08] MEDS: ENOXAPARIN 40MG/0.4ML SYRINGE (J1650 PER 10MG) SC SCH (08:49)
[2023-05-08] MEDS: predniSONE 20 MG TAB PO SCH (10:25)
[2023-05-08] MEDS: NS 1,000 ML IV SCH ×2 (12:30→20:47)
[2023-05-08] MEDS: KETOROLAC 30 MG/ML 1ML VIAL IV PRN ×2 (13:46→20:50)
[2023-05-08] MEDS ORDERED: cefTRIAXone SOD 2 GM in D5W MINI-BAG PLUS 50 ML IV SCH (15:00)
[2023-05-08] MEDS: AZITHROMYCIN INJ 500 MG, VIAL MATE ADAPTER 1 EACH in NS 250 ML IV SCH (16:34)
[2023-05-08 17:07] LABS: PERCENT SATURATION 10.8 % (13.2-45.0)
[2023-05-09] VITALS (12 sets, daily range): BP systolic 101–117; BP diastolic 54–71; TEMP 97.2–101.2; O2SAT 87–97
[2023-05-09] MEDS: HYDROMORPHONE HCL 0.5 MG/ 0.5 ML SYRINGE IV PRN ×7 (02:20→21:17)
[2023-05-09] MEDS: ALBUTEROL SULFATE 2.5MG/0.5ML INH NEB SOLN NEB PRN ×3 (02:21→18:25)
[2023-05-09] MEDS: KETOROLAC 30 MG/ML 1ML VIAL IV PRN (03:37)
[2023-05-09] MEDS ORDERED: BENZONATATE 100MG CAPSULE PO PRN (04:55)
[2023-05-09 06:22] LABS: BLOOD UREA NITROGEN 19 MG/DL (9-23); CALCIUM LEVEL 8.1 MG/DL (8.5-10.1); CARBON DIOXIDE LEVEL 21 MMOL/L (20-31); CHLORIDE LEVEL 111 MMOL/L (98-107); CREATININE FOR GFR 0.48 MG/DL (0.55-1.30); GLOMERULAR FILTRATION RATE > 60.0 (>60); GLUCOSE, FASTING 94 MG/DL (60-100); POTASSIUM SERUM 4.7 MMOL/L (3.5-5.1); SODIUM LEVEL 138 MMOL/L (136-145)
[2023-05-09] MEDS: NS 1,000 ML IV SCH ×2 (06:45→18:28)
[2023-05-09] MEDS: ALBUTEROL SULFATE 2.5MG/0.5ML INH NEB SOLN NEB SCH ×3 (08:00→19:45)
[2023-05-09] MEDS: CYANOCOBALAMIN 500 MCG TAB PO SCH (08:19)
[2023-05-09] MEDS: predniSONE 20 MG TAB PO SCH (08:19)
[2023-05-09] MEDS: guaiFENesin ER TABLET 600 MG TAB PO SCH ×2 (08:19→20:08)
[2023-05-09] MEDS: ENOXAPARIN 40MG/0.4ML SYRINGE (J1650 PER 10MG) SC SCH (08:20)
[2023-05-09 08:29] LABS: MEAN CORPUSCULAR HEMOGLOBIN 33.2 pg (27.0-33.0); MEAN CORPUSCULAR VOLUME 88.2 fl (80.0-96.0); PLATELET COUNT, AUTOMATED 345 10^3/uL (150-450); RED BLOOD COUNT 2.11 10^6/uL (4.00-5.40); WHITE BLOOD COUNT 17.8 10^3/uL (4.0-10.0)
[2023-05-09 08:37] LABS: MEAN CORPUSCULAR HGB CONC 37.6 g/dl (32.0-36.5)
[2023-05-09 08:38] LABS: HEMATOCRIT 18.6 % (36.0-47.0)
[2023-05-09 09:27] LABS: LYMPHOCYTES 28 % (16-44); MONOCYTES 5 % (0-5); NEUTROPHILS 67 % (28-66)
[2023-05-09 09:28] LABS: PLATELET ESTIMATE NORMAL (NORMAL)
[2023-05-09 09:29] LABS: SICKLE CELLS 4+
[2023-05-09 09:30] LABS: GIANT PLATELETS 1+; HYPOCHROMASIA 2+
[2023-05-09 09:31] LABS: ANISOCYTOSIS 2+; POLYCHROMASIA 2+
[2023-05-09] MEDS: KETOROLAC 30 MG/ML 1ML VIAL IV SCH ×3 (10:00→21:16)
[2023-05-09] MEDS: BENZONATATE 100MG CAPSULE PO SCH ×3 (11:15→20:08)
[2023-05-09 11:49] LABS: PROCALCITONIN 0.11 ng/ml
[2023-05-09] MEDS: ACETAMINOPHEN TAB 650MG DOSE (2X325MG) PO PRN ×2 (11:59→20:11)
[2023-05-09] MEDS ORDERED: MAGNESIUM SULFATE IN WATER 2 GM in IV 1 EA IV STA ×2 (15:12)
[2023-05-09] MEDS: AZITHROMYCIN INJ 500 MG, VIAL MATE ADAPTER 1 EACH in NS 250 ML IV SCH (16:32)
[2023-05-09] MEDS: CEFEPIME HCL 2 GM in D5W MINI-BAG PLUS 50 ML IV SCH ×2 (16:33→23:41)
[2023-05-09] MEDS ORDERED: ONDANSETRON 4MG 2ML VIAL IV PRN (17:35)
[2023-05-09] MEDS: MAG SULF 1GM/100ML (MAG RUN) 1 GM in IV 1 EA IV SCH ×2 (17:41→18:21)
[2023-05-09 18:42] LABS: MEAN CORPUSCULAR HEMOGLOBIN 33.7 pg (27.0-33.0); MEAN CORPUSCULAR VOLUME 88.9 fl (80.0-96.0); PLATELET COUNT, AUTOMATED 323 10^3/uL (150-450); RED BLOOD COUNT 1.99 10^6/uL (4.00-5.40)
[2023-05-09 18:49] LABS: HEMATOCRIT 17.7 % (36.0-47.0); MEAN CORPUSCULAR HGB CONC 37.9 g/dl (32.0-36.5)
[2023-05-09 18:50] LABS: HEMOGLOBIN 6.7 g/dl (12.0-15.5)
[2023-05-09 21:30] LABS: ANISOCYTOSIS 2+; LYMPHOCYTES 7 % (16-44); NEUTROPHILS 88 % (28-66); PLATELET ESTIMATE NORMAL (NORMAL)
[2023-05-09 21:31] LABS: POIKILOCYTOSIS 3+
[2023-05-09 21:32] LABS: SCHISTOCYTES 2+; SICKLE CELLS 3+
[2023-05-09 21:35] LABS: HYPOCHROMASIA 1+
[2023-05-10] VITALS (12 sets, daily range): BP systolic 99–125; BP diastolic 51–80; TEMP 97.2–98.7; O2SAT 88–100
[2023-05-10] MEDS: HYDROMORPHONE HCL 0.5 MG/ 0.5 ML SYRINGE IV PRN ×6 (00:29→19:23)
[2023-05-10] MEDS: ALBUTEROL SULFATE 2.5MG/0.5ML INH NEB SOLN NEB SCH ×4 (00:30→18:59)
[2023-05-10] MEDS: KETOROLAC 30 MG/ML 1ML VIAL IV SCH ×3 (03:18→16:27)
[2023-05-10] MEDS: NS 1,000 ML IV SCH ×2 (05:16→15:36)
[2023-05-10] MEDS: ACETAMINOPHEN TAB 650MG DOSE (2X325MG) PO PRN (05:42)
[2023-05-10 05:59] LABS: BASO % 0.2 % (0.0-1.0); EOS % 0.2 % (0.0-3.0); HEMOGLOBIN 7.1 g/dl (12.0-15.5); LYMPH # 3.7 10^3/uL (1.5-5.0); LYMPH % 22.4 % (24.0-44.0); MEAN CORPUSCULAR HEMOGLOBIN 31.7 pg (27.0-33.0); MEAN CORPUSCULAR VOLUME 87.9 fl (80.0-96.0); MONO # 1.2 10^3/uL (0.0-0.8); MONO % 7.5 % (2.0-8.0); NEUTROPHILS # 11.3 10^3/uL (1.5-8.5); NEUTROPHILS % 69.2 % (36.0-66.0); PLATELET COUNT, AUTOMATED 324 10^3/uL (150-450); RED BLOOD COUNT 2.24 10^6/uL (4.00-5.40); WHITE BLOOD COUNT 16.4 10^3/uL (4.0-10.0)
[2023-05-10 06:22] LABS: BLOOD UREA NITROGEN 13 MG/DL (9-23); CALCIUM LEVEL 8.3 MG/DL (8.5-10.1); CARBON DIOXIDE LEVEL 22 MMOL/L (20-31); CHLORIDE LEVEL 112 MMOL/L (98-107); CREATININE FOR GFR 0.47 MG/DL (0.55-1.30); GLOMERULAR FILTRATION RATE > 60.0 (>60); GLUCOSE, FASTING 87 MG/DL (60-100); POTASSIUM SERUM 4.7 MMOL/L (3.5-5.1); SODIUM LEVEL 140 MMOL/L (136-145)
[2023-05-10 06:23] LABS: HEMATOCRIT 19.7 % (36.0-47.0)
[2023-05-10 07:04] LABS: LDH LACTATE DEHYDROGENASE 503 U/L (120-246)
[2023-05-10 07:19] LABS: ALBUMIN 3.1 G/DL (3.2-5.2); ALKALINE PHOSPHATASE 51 U/L (46-116); ALT/SGPT 18 U/L (7.0-40); AST/SGOT 29 U/L (<34); TOTAL PROTEIN 6.1 G/DL (5.7-8.2)
[2023-05-10] MEDS: BENZONATATE 100MG CAPSULE PO SCH ×2 (07:54→15:34)
[2023-05-10] MEDS: CYANOCOBALAMIN 500 MCG TAB PO SCH (07:54)
[2023-05-10] MEDS: ENOXAPARIN 40MG/0.4ML SYRINGE (J1650 PER 10MG) SC SCH (07:54)
[2023-05-10] MEDS: predniSONE 20 MG TAB PO SCH (07:54)
[2023-05-10] MEDS: guaiFENesin ER TABLET 600 MG TAB PO SCH (07:54)
[2023-05-10] MEDS: CEFEPIME HCL 2 GM in D5W MINI-BAG PLUS 50 ML IV SCH ×2 (07:55→15:34)
[2023-05-10] MEDS ORDERED: SODIUM CHLORIDE NASAL 0.65% SPRAY BTL (OCEAN) PRN (08:00)
[2023-05-10 16:09] LABS: BODY FLUID CULTURE Not indicated. (.); LEGIONELLA ANTIGEN URINE Negative (Negative); ORGANISM ID Not indicated. (.); SPECIMEN SOURCE Urine (.); URINE STREP PNEUMONIAE ANTIGEN Negative (Negative)
[2023-05-10] MEDS: AZITHROMYCIN INJ 500 MG, VIAL MATE ADAPTER 1 EACH in NS 250 ML IV SCH (16:28)
[2023-05-10] MEDS ORDERED: SENOKOT S TAB PO SCH (21:00)
[2023-05-10] MEDS ORDERED: DOCUSATE SODIUM 100MG CAPSULE PO SCH (21:00)
== END 2023-05-10 19:39 | disposition short-term general hospital (02) | DRG 662 ==
LOC: M ED 11:29 → M ED INP 15:50 → ENRESERV 17:17 → M MSPAV 17:36
PROVIDERS: ADMIT Internal Medicine; ATTEND Internal Medicine
PROC: 30233N1 Transfusion of Nonautologous Red Blood Cells into Peripheral Vein, Percutaneous Approach (ICD-10-PCS; principal; 2023-05-07)
DX: D57.01 Hb-SS disease with acute chest syndrome (principal); J96.01 Acute respiratory failure with hypoxia; J18.9 Pneumonia, unspecified organism; J45.901 Unspecified asthma with (acute) exacerbation; K59.03 Drug induced constipation; R00.0 Tachycardia, unspecified; R07.89 Other chest pain; M25.561 Pain in right knee; M54.50 Low back pain, unspecified; D59.9 Acquired hemolytic anemia, unspecified; E80.6 Other disorders of bilirubin metabolism; T40.2X5A Adverse effect of other opioids, initial encounter; Z79.899 Other long term (current) drug therapy; Z91.018 Allergy to other foods; Z91.030 Bee allergy status; Z91.048 Other nonmedicinal substance allergy status; Z90.49 Acquired absence of other specified parts of digestive tract

== ENCOUNTER 2023-07-02 09:49 | Inpatient (IN) | payer BC ==
[~2023-07-02] VITALS: Ht 167.6 cm; Wt 85.9 kg
[~2023-07-02 09:49] MED LIST changes: +ACET-907 PO
[2023-07-02] MEDS: MORPHINE 4 MG/ML 1ML VIAL IV ONE ×3 (12:40→15:30)
[2023-07-02] MEDS: NS 1,000 ML IV ONE ×2 (12:40→16:23)
[2023-07-02 13:14] LABS: INR 1.07; PROTHROMBIN TIME 13.6 SECONDS (12.5-14.5)
[2023-07-02 13:15] LABS: CK-MB VALUE MASS < 1.0 NG/ML (<3.6)
[2023-07-02 13:17] LABS: ALBUMIN 3.7 G/DL (3.2-5.2); ALKALINE PHOSPHATASE 72 U/L (46-116); ALT/SGPT 29 U/L (7.0-40); AST/SGOT 35 U/L (<34); BASO # 0.1 10^3/uL (0.0-0.2); BASO % 0.8 % (0.0-1.0); BILIRUBIN,DIRECT 1.3 MG/DL (<0.4); BILIRUBIN,TOTAL 4.5 MG/DL (0.3-1.2); BLOOD UREA NITROGEN 13 MG/DL (9-23); CARBON DIOXIDE LEVEL 22 MMOL/L (20-31); CHLORIDE LEVEL 110 MMOL/L (98-107); CREATININE FOR GFR 0.45 MG/DL (0.55-1.30); EOS # 1.4 10^3/uL (0.0-0.5); EOS % 8.1 % (0.0-3.0); GLOMERULAR FILTRATION RATE > 60.0 (>60); GLUCOSE, FASTING 88 MG/DL (60-100); HEMATOCRIT 25.6 % (36.0-47.0); HEMOGLOBIN 9.5 g/dl (12.0-15.5); LYMPH # 5.7 10^3/uL (1.5-5.0); LYMPH % 33.4 % (24.0-44.0); MEAN CORPUSCULAR HEMOGLOBIN 30.1 pg (27.0-33.0); MEAN CORPUSCULAR HGB CONC 37.1 g/dl (32.0-36.5); MONO # 0.8 10^3/uL (0.0-0.8); MONO % 4.5 % (2.0-8.0); NEUTROPHILS # 9.1 10^3/uL (1.5-8.5); NEUTROPHILS % 52.6 % (36.0-66.0); PLATELET COUNT, AUTOMATED 792 10^3/uL (150-450); POTASSIUM SERUM 4.5 MMOL/L (3.5-5.1); RED BLOOD COUNT 3.16 10^6/uL (4.00-5.40); SODIUM LEVEL 137 MMOL/L (136-145); WHITE BLOOD COUNT 17.2 10^3/uL (4.0-10.0)
[2023-07-02 13:19] LABS: FREE T4 0.86 NG/DL (0.89-1.76); THYROID STIMULATING HORMONE 0.898 uIU/ML (0.55-4.78)
[2023-07-02 13:22] LABS: CPK CREATINE PHOSPHOKINASE 77 U/L (34-145); HCG, SERUM QUALITATIVE NEGATIVE (NEGATIVE); MB/CK RELATIVE INDEX 1.29 (< OR =4)
[2023-07-02] MEDS ORDERED: HOME MED LIST COMPLETE! XX SCH (16:20)
[2023-07-02 16:48] LABS: RSV AMPLIFICATION NEGATIVE (NEGATIVE)
[2023-07-02 17:49] VITALS: BP 115/55; TEMP 97.9; O2SAT 99
[2023-07-02] MEDS: KETOROLAC 30 MG/ML 1ML VIAL IV PRN (17:58)
[2023-07-02] MEDS: PANTOPRAZOLE 40MG VIAL IV SCH (17:58)
[2023-07-02] MEDS ORDERED: KETOROLAC 30 MG/ML 1ML VIAL IV SCH (18:00)
[2023-07-02] MEDS: NS 1,000 ML IV SCH (18:05)
[2023-07-02] MEDS: MORPHINE 4 MG/ML 1ML VIAL IV PRN (18:15)
[2023-07-02 20:45] VITALS: BP 106/53; TEMP 98.4; O2SAT 97
[2023-07-02] MEDS: ENOXAPARIN 40MG/0.4ML SYRINGE (J1650 PER 10MG) SC SCH (21:00)
[2023-07-02] MEDS: PENICILLIN V POTASSIUM 500 MG TAB PO SCH (22:00)
[2023-07-02] MEDS: ONDANSETRON 4MG ORAL DISINTEGRATING TAB PO PRN (22:01)
[2023-07-03] VITALS (10 sets, daily range): BP systolic 102–136; BP diastolic 55–87; TEMP 97.7–98.6; O2SAT 96–99
[2023-07-03 05:43] LABS: BASO # 0.1 10^3/uL (0.0-0.2); BASO % 0.6 % (0.0-1.0); EOS # 1.2 10^3/uL (0.0-0.5); EOS % 12.2 % (0.0-3.0); LYMPH # 5.2 10^3/uL (1.5-5.0); LYMPH % 51.4 % (24.0-44.0); MEAN CORPUSCULAR HEMOGLOBIN 29.3 pg (27.0-33.0); MEAN CORPUSCULAR HGB CONC 34.6 g/dl (32.0-36.5); MEAN CORPUSCULAR VOLUME 84.7 fl (80.0-96.0); MONO # 0.6 10^3/uL (0.0-0.8); MONO % 6.1 % (2.0-8.0); NEUTROPHILS % 29.4 % (36.0-66.0); PLATELET COUNT, AUTOMATED 436 10^3/uL (150-450); RED BLOOD COUNT 2.15 10^6/uL (4.00-5.40); WHITE BLOOD COUNT 10.1 10^3/uL (4.0-10.0)
[2023-07-03 05:44] LABS: HEMATOCRIT 18.2 % (36.0-47.0); HEMOGLOBIN 6.3 g/dl (12.0-15.5)
[2023-07-03 06:08] LABS: BLOOD UREA NITROGEN 10 MG/DL (9-23); CALCIUM LEVEL 8.2 MG/DL (8.5-10.1); CARBON DIOXIDE LEVEL 21 MMOL/L (20-31); CHLORIDE LEVEL 115 MMOL/L (98-107); CREATININE FOR GFR 0.47 MG/DL (0.55-1.30); GLOMERULAR FILTRATION RATE > 60.0 (>60); GLUCOSE, FASTING 93 MG/DL (60-100); POTASSIUM SERUM 4.5 MMOL/L (3.5-5.1); SODIUM LEVEL 141 MMOL/L (136-145)
[2023-07-03] MEDS: MORPHINE 2 MG/ML 1ML VIAL IV PRN (07:36)
[2023-07-03] MEDS: HYDROXYUREA 500 MG CAP PO SCH (09:04)
[2023-07-03] MEDS: FOLIC ACID 1MG TAB PO SCH (09:04)
[2023-07-03] MEDS: diphenhydrAMINE 50MG CAP PO ONE (10:55)
[2023-07-03] MEDS: oxyCODONE 5MG TAB PO PRN ×2 (10:55→21:02)
[2023-07-03] MEDS: ACETAMINOPHEN TAB 650MG DOSE (2X325MG) PO ONE (10:56)
[2023-07-03] MEDS: LIDOCAINE 5% (LIDODERM) PATCH TD SCH (14:37)
[2023-07-03 15:28] LABS: HEMOGLOBIN 7.2 g/dl (12.0-15.5)
[2023-07-03 15:36] LABS: HEMATOCRIT 20.3 % (36.0-47.0)
[2023-07-03] MEDS: MORPHINE 30 MG TAB **MSIR PO ONE (15:48)
[2023-07-03] MEDS: MORPHINE 10 MG/ML 1ML VIAL IV PRN (21:58)
[2023-07-04 01:45] VITALS: O2SAT 86; O2SAT 95
[2023-07-04 02:50] VITALS: O2SAT 99
[2023-07-04 02:52] VITALS: O2SAT 97
[2023-07-04 05:43] VITALS: BP 112/60; TEMP 97.9; O2SAT 96
[2023-07-04 06:21] LABS: BASO # 0.1 10^3/uL (0.0-0.2); BASO % 0.7 % (0.0-1.0); EOS # 1.4 10^3/uL (0.0-0.5); EOS % 13.1 % (0.0-3.0); HEMATOCRIT 21.1 % (36.0-47.0); HEMOGLOBIN 7.5 g/dl (12.0-15.5); LYMPH # 4.6 10^3/uL (1.5-5.0); LYMPH % 44.1 % (24.0-44.0); MEAN CORPUSCULAR HEMOGLOBIN 29.6 pg (27.0-33.0); MEAN CORPUSCULAR HGB CONC 35.5 g/dl (32.0-36.5); MEAN CORPUSCULAR VOLUME 83.4 fl (80.0-96.0); MONO # 0.7 10^3/uL (0.0-0.8); MONO % 6.6 % (2.0-8.0); NEUTROPHILS # 3.7 10^3/uL (1.5-8.5); NEUTROPHILS % 35.3 % (36.0-66.0); PLATELET COUNT, AUTOMATED 470 10^3/uL (150-450); RED BLOOD COUNT 2.53 10^6/uL (4.00-5.40); WHITE BLOOD COUNT 10.4 10^3/uL (4.0-10.0)
[2023-07-04 06:52] LABS: BLOOD UREA NITROGEN 9 MG/DL (9-23); CALCIUM LEVEL 8.8 MG/DL (8.5-10.1); CARBON DIOXIDE LEVEL 25 MMOL/L (20-31); CHLORIDE LEVEL 109 MMOL/L (98-107); CREATININE FOR GFR 0.45 MG/DL (0.55-1.30); GLOMERULAR FILTRATION RATE > 60.0 (>60); GLUCOSE, FASTING 82 MG/DL (60-100); POTASSIUM SERUM 4.4 MMOL/L (3.5-5.1); SODIUM LEVEL 140 MMOL/L (136-145)
[2023-07-04] MEDS: MORPHINE 30 MG TAB **MSIR PO PRN (12:36)
[2023-07-04] MEDS: SENOKOT S TAB PO SCH (12:37)
[2023-07-04 14:00] VITALS: BP 124/61; TEMP 98.4; O2SAT 97
[2023-07-04] MEDS: PANTOPRAZOLE 40MG TAB (PROTONIX) PO SCH (15:29)
[2023-07-04 20:50] VITALS: BP 101/50; TEMP 97.7; O2SAT 96
[2023-07-05 05:20] VITALS: BP 112/94; TEMP 98.1; O2SAT 94
[2023-07-05 06:13] LABS: BASO # 0.1 10^3/uL (0.0-0.2); BASO % 0.8 % (0.0-1.0); EOS # 1.3 10^3/uL (0.0-0.5); EOS % 13.4 % (0.0-3.0); HEMATOCRIT 22.2 % (36.0-47.0); LYMPH # 4.2 10^3/uL (1.5-5.0); LYMPH % 43.7 % (24.0-44.0); MEAN CORPUSCULAR HEMOGLOBIN 29.6 pg (27.0-33.0); MEAN CORPUSCULAR VOLUME 82.2 fl (80.0-96.0); MONO # 0.7 10^3/uL (0.0-0.8); MONO % 7.4 % (2.0-8.0); NEUTROPHILS # 3.3 10^3/uL (1.5-8.5); NEUTROPHILS % 34.6 % (36.0-66.0); PLATELET COUNT, AUTOMATED 486 10^3/uL (150-450); WHITE BLOOD COUNT 9.6 10^3/uL (4.0-10.0)
[2023-07-05 06:45] LABS: BLOOD UREA NITROGEN 11 MG/DL (9-23); CALCIUM LEVEL 8.9 MG/DL (8.5-10.1); CARBON DIOXIDE LEVEL 27 MMOL/L (20-31); CHLORIDE LEVEL 107 MMOL/L (98-107); GLOMERULAR FILTRATION RATE > 60.0 (>60); GLUCOSE, FASTING 92 MG/DL (60-100); POTASSIUM SERUM 4.6 MMOL/L (3.5-5.1); SODIUM LEVEL 140 MMOL/L (136-145)
[2023-07-05 07:31] VITALS: O2SAT 95
[2023-07-05 09:04] LABS: LDH LACTATE DEHYDROGENASE 523 U/L (120-246)
[2023-07-05] MEDS ORDERED: OXYC-517 PO ×2 (11:03→11:07)
== END 2023-07-05 13:33 | disposition home or self-care (01) | DRG 662 ==
LOC: M ED 09:49 → M ED INP 16:02 → ENRESERV 16:37 → M MSPAV 17:49
PROVIDERS: ADMIT Internal Medicine Nephrology; ATTEND Internal Medicine Nephrology
PROC: 30233N1 Transfusion of Nonautologous Red Blood Cells into Peripheral Vein, Percutaneous Approach (ICD-10-PCS; principal; 2023-07-03)
DX: D57.00 Hb-SS disease with crisis, unspecified (principal); E80.6 Other disorders of bilirubin metabolism; D72.829 Elevated white blood cell count, unspecified; J45.909 Unspecified asthma, uncomplicated; Z90.49 Acquired absence of other specified parts of digestive tract; Z79.899 Other long term (current) drug therapy; Z91.013 Allergy to seafood; Z91.018 Allergy to other foods; Z91.048 Other nonmedicinal substance allergy status

== ENCOUNTER → 2023-07-31 | Outpatient (REF) ==
[~2023-07-31] MED LIST changes: +OXYC-517 PO
== END ==
LOC: M EMP 10:21
PROVIDERS: ATTEND Family Medicine
DX: Z11.52 Encounter for screening for COVID-19 (principal)

== ENCOUNTER → 2023-08-01 | Outpatient (REF) | LOC: M EMP 06:55 | PROVIDERS: ATTEND Family Medicine | DX: Z11.52 Encounter for screening for COVID-19 (principal) ==

== ENCOUNTER 2023-08-05 09:45 | Inpatient (IN) | payer BC ==
[2023-08-05] VITALS (7 sets, daily range): BP systolic 92–136; BP diastolic 47–57; TEMP 97.1–98.1; O2SAT 95–98
[~2023-08-05] VITALS: Ht 167.6 cm; Wt 83.5 kg
[2023-08-05] MEDS: ONDANSETRON 4MG 2ML VIAL IV ONE (10:34)
[2023-08-05] MEDS: MORPHINE 4 MG/ML 1ML VIAL IV PRN (10:34)
[2023-08-05] MEDS ORDERED: OXYC-517 PO (11:13)
[2023-08-05] MEDS ORDERED: HOME MED LIST COMPLETE! XX SCH (11:15)
[2023-08-05 11:35] LABS: ALBUMIN 3.6 G/DL (3.2-5.2); ALKALINE PHOSPHATASE 70 U/L (46-116); ALT/SGPT 42 U/L (7.0-40); AST/SGOT 68 U/L (<34); BILIRUBIN,TOTAL 5.6 MG/DL (0.3-1.2); BLOOD UREA NITROGEN 10 MG/DL (9-23); CALCIUM LEVEL 8.9 MG/DL (8.5-10.1); CARBON DIOXIDE LEVEL 24 MMOL/L (20-31); CHLORIDE LEVEL 108 MMOL/L (98-107); CREATININE FOR GFR 0.46 MG/DL (0.55-1.30); GLOMERULAR FILTRATION RATE > 60.0 (>60); GLUCOSE, FASTING 95 MG/DL (60-100); POTASSIUM SERUM 5.3 MMOL/L (3.5-5.1); SODIUM LEVEL 139 MMOL/L (136-145); TOTAL PROTEIN 6.8 G/DL (5.7-8.2)
[2023-08-05] MEDS: diphenhydrAMINE 50MG/ML VIAL IV STA (11:42)
[2023-08-05] MEDS: KETOROLAC 30 MG/ML 1ML VIAL IV ONE (11:48)
[2023-08-05 11:56] LABS: HCG, SERUM QUALITATIVE NEGATIVE (NEGATIVE)
[2023-08-05 12:01] LABS: BASO # 0.1 10^3/uL (0.0-0.2); BASO % 0.8 % (0.0-1.0); EOS # 1.2 10^3/uL (0.0-0.5); EOS % 7.8 % (0.0-3.0); LYMPH # 5.3 10^3/uL (1.5-5.0); LYMPH % 33.9 % (24.0-44.0); MEAN CORPUSCULAR HEMOGLOBIN 30.1 pg (27.0-33.0); MEAN CORPUSCULAR HGB CONC 34.5 g/dl (32.0-36.5); MEAN CORPUSCULAR VOLUME 87.2 fl (80.0-96.0); MONO # 0.8 10^3/uL (0.0-0.8); MONO % 5.2 % (2.0-8.0); NEUTROPHILS # 7.9 10^3/uL (1.5-8.5); NEUTROPHILS % 50.5 % (36.0-66.0); PLATELET COUNT, AUTOMATED 490 10^3/uL (150-450); RED BLOOD COUNT 2.26 10^6/uL (4.00-5.40); WHITE BLOOD COUNT 15.6 10^3/uL (4.0-10.0)
[2023-08-05 12:11] LABS: HEMATOCRIT 19.7 % (36.0-47.0); HEMOGLOBIN 6.8 g/dl (12.0-15.5)
[2023-08-05] MEDS ORDERED: ISOVUE-370 76% 100ML VIAL As Ordered ONE (12:36)
[2023-08-05] MEDS: HYDROMORPHONE HCL 0.5 MG/ 0.5 ML SYRINGE IV PRN ×2 (14:30→17:29)
[2023-08-05] MEDS: cefTRIAXone SOD 2 GM in D5W MINI-BAG PLUS 50 ML IV ONE (16:44)
[2023-08-05] MEDS ORDERED: LR 1,000 ML IV ONE (17:05)
[2023-08-05] MEDS ORDERED: HYDROMORPHONE HCL 0.5 MG/ 0.5 ML SYRINGE IV PRN (17:10)
[2023-08-05] MEDS: AZITHROMYCIN 250MG TABLET PO SCH (18:26)
[2023-08-05] MEDS: NS 1,000 ML IV ONE (18:40)
[2023-08-05] MEDS: LR 1,000 ML IV SCH (19:00)
[2023-08-05] MEDS: ALBUTEROL SULFATE 2.5MG/0.5ML INH NEB SOLN NEB SCH (19:12)
[2023-08-05 20:18] LABS: LDH LACTATE DEHYDROGENASE 588 U/L (120-246)
[2023-08-05 20:19] LABS: BILIRUBIN,DIRECT 1.5 MG/DL (<0.4)
[2023-08-05 20:31] LABS: PROCALCITONIN 0.08 ng/ml
[2023-08-05 20:43] LABS: HEMOGLOBIN 7.4 g/dl (12.0-15.5)
[2023-08-05 20:48] LABS: HEMATOCRIT 20.9 % (36.0-47.0)
[2023-08-06] VITALS (11 sets, daily range): BP systolic 94–114; BP diastolic 53–69; TEMP 97.9–98.6; O2SAT 93–98
[2023-08-06 06:15] LABS: HEMATOCRIT 24.5 % (36.0-47.0); HEMOGLOBIN 8.7 g/dl (12.0-15.5); MEAN CORPUSCULAR HEMOGLOBIN 30.6 pg (27.0-33.0); MEAN CORPUSCULAR HGB CONC 35.5 g/dl (32.0-36.5); MEAN CORPUSCULAR VOLUME 86.3 fl (80.0-96.0); PLATELET COUNT, AUTOMATED 410 10^3/uL (150-450); RED BLOOD COUNT 2.84 10^6/uL (4.00-5.40); WHITE BLOOD COUNT 13.9 10^3/uL (4.0-10.0)
[2023-08-06 06:38] LABS: ALBUMIN 3.1 G/DL (3.2-5.2); ALKALINE PHOSPHATASE 60 U/L (46-116); ALT/SGPT 37 U/L (7.0-40); AST/SGOT 47 U/L (<34); BILIRUBIN,TOTAL 3.3 MG/DL (0.3-1.2); BLOOD UREA NITROGEN 8 MG/DL (9-23); CALCIUM LEVEL 8.7 MG/DL (8.5-10.1); CARBON DIOXIDE LEVEL 24 MMOL/L (20-31); CHLORIDE LEVEL 110 MMOL/L (98-107); CREATININE FOR GFR 0.45 MG/DL (0.55-1.30); GLOMERULAR FILTRATION RATE > 60.0 (>60); GLUCOSE, FASTING 91 MG/DL (60-100); POTASSIUM SERUM 4.7 MMOL/L (3.5-5.1); SODIUM LEVEL 141 MMOL/L (136-145); TOTAL PROTEIN 6.1 G/DL (5.7-8.2)
[2023-08-06] MEDS: PERCOCET 5MG/325MG TAB PO ONE (06:59)
[2023-08-06] MEDS: SENOKOT S TAB PO SCH (09:00)
[2023-08-06] MEDS: ENOXAPARIN 40MG/0.4ML SYRINGE (J1650 PER 10MG) SC SCH (09:19)
[2023-08-06] MEDS: FOLIC ACID 1MG TAB PO SCH (09:20)
[2023-08-06] MEDS ORDERED: oxyCODONE 5MG TAB PO PRN ×2 (11:50→13:00)
[2023-08-06] MEDS ORDERED: MIRALAX *UNIT DOSE* 17GM PACKET PO PRN (12:35)
[2023-08-06 12:42] LABS: HEMATOCRIT 24.5 % (36.0-47.0); HEMOGLOBIN 8.8 g/dl (12.0-15.5)
[2023-08-06] MEDS: PERCOCET 5MG/325MG TAB PO PRN (13:42)
[2023-08-06] MEDS: cefTRIAXone SOD 1 GM in D5W MINI-BAG PLUS 50 ML IV SCH (17:07)
[2023-08-06] MEDS: HYDROMORPHONE HCL 0.5 MG/ 0.5 ML SYRINGE IV ONE (19:03)
[2023-08-07] MEDS: HYDROMORPHONE HCL 0.5 MG/ 0.5 ML SYRINGE IV ONE (00:44)
[2023-08-07 06:00] VITALS: BP 110/62; TEMP 98.1; O2SAT 92
[2023-08-07 07:37] LABS: BASO % 0.5 % (0.0-1.0); EOS % 13.2 % (0.0-3.0); HEMATOCRIT 27.4 % (36.0-47.0); HEMOGLOBIN 9.5 g/dl (12.0-15.5); LYMPH # 3.9 10^3/uL (1.5-5.0); LYMPH % 50.7 % (24.0-44.0); MEAN CORPUSCULAR HEMOGLOBIN 30.1 pg (27.0-33.0); MEAN CORPUSCULAR HGB CONC 34.7 g/dl (32.0-36.5); MEAN CORPUSCULAR VOLUME 86.7 fl (80.0-96.0); MONO # 0.4 10^3/uL (0.0-0.8); MONO % 5.3 % (2.0-8.0); NEUTROPHILS # 2.3 10^3/uL (1.5-8.5); NEUTROPHILS % 29.9 % (36.0-66.0); PLATELET COUNT, AUTOMATED 389 10^3/uL (150-450); RED BLOOD COUNT 3.16 10^6/uL (4.00-5.40); WHITE BLOOD COUNT 7.6 10^3/uL (4.0-10.0)
[2023-08-07 08:02] LABS: ALKALINE PHOSPHATASE 62 U/L (46-116); ALT/SGPT 52 U/L (7.0-40); AST/SGOT 80 U/L (<34); BILIRUBIN,DIRECT 1.4 MG/DL (<0.4); BILIRUBIN,TOTAL 4.2 MG/DL (0.3-1.2); BLOOD UREA NITROGEN 8 MG/DL (9-23); CALCIUM LEVEL 9.1 MG/DL (8.5-10.1); CARBON DIOXIDE LEVEL 26 MMOL/L (20-31); CHLORIDE LEVEL 108 MMOL/L (98-107); CREATININE FOR GFR 0.42 MG/DL (0.55-1.30); GLOMERULAR FILTRATION RATE > 60.0 (>60); GLUCOSE, FASTING 89 MG/DL (60-100); MAGNESIUM LEVEL 1.6 MG/DL (1.8-2.4); POTASSIUM SERUM 5.1 MMOL/L (3.5-5.1); SODIUM LEVEL 138 MMOL/L (136-145); TOTAL PROTEIN 6.2 G/DL (5.7-8.2)
[2023-08-07] MEDS: MAG SULF 1GM/100ML (MAG RUN) 1 GM in IV 1 EA IV SCH (09:02)
[2023-08-07] MEDS: ALBUTEROL 90 MCG/ACT 8GM HFA INHALER INH PRN (11:23)
[2023-08-07] MEDS: HYDROMORPHONE HCL 0.5 MG/ 0.5 ML SYRINGE IV PRN (13:11)
[2023-08-07 14:00] VITALS: BP 136/68; TEMP 98.2; O2SAT 95
[2023-08-07] MEDS: PERCOCET 5MG/325MG TAB PO PRN (20:47)
[2023-08-07 22:00] VITALS: BP 132/78; TEMP 97.3; O2SAT 94
[2023-08-08 06:01] VITALS: BP 129/76; TEMP 98.1; O2SAT 94
[2023-08-08 07:23] LABS: ALKALINE PHOSPHATASE 71 U/L (46-116); ALT/SGPT 49 U/L (7.0-40); AST/SGOT 58 U/L (<34); BILIRUBIN,DIRECT 0.9 MG/DL (<0.4); BILIRUBIN,TOTAL 3.3 MG/DL (0.3-1.2); BLOOD UREA NITROGEN 10 MG/DL (9-23); CALCIUM LEVEL 8.8 MG/DL (8.5-10.1); CARBON DIOXIDE LEVEL 25 MMOL/L (20-31); CHLORIDE LEVEL 107 MMOL/L (98-107); CREATININE FOR GFR 0.38 MG/DL (0.55-1.30); GLOMERULAR FILTRATION RATE > 60.0 (>60); GLUCOSE, FASTING 101 MG/DL (60-100); MAGNESIUM LEVEL 1.4 MG/DL (1.8-2.4); POTASSIUM SERUM 4.7 MMOL/L (3.5-5.1); SODIUM LEVEL 139 MMOL/L (136-145); TOTAL PROTEIN 5.9 G/DL (5.7-8.2)
[2023-08-08 07:44] LABS: BASO # 0.1 10^3/uL (0.0-0.2); BASO % 0.5 % (0.0-1.0); EOS # 1.1 10^3/uL (0.0-0.5); EOS % 11.8 % (0.0-3.0); HEMATOCRIT 25.4 % (36.0-47.0); HEMOGLOBIN 9.1 g/dl (12.0-15.5); LYMPH # 3.6 10^3/uL (1.5-5.0); LYMPH % 38.2 % (24.0-44.0); MEAN CORPUSCULAR HEMOGLOBIN 30.3 pg (27.0-33.0); MEAN CORPUSCULAR HGB CONC 35.8 g/dl (32.0-36.5); MEAN CORPUSCULAR VOLUME 84.7 fl (80.0-96.0); MONO # 0.5 10^3/uL (0.0-0.8); MONO % 5.4 % (2.0-8.0); NEUTROPHILS # 4.2 10^3/uL (1.5-8.5); NEUTROPHILS % 43.9 % (36.0-66.0); PLATELET COUNT, AUTOMATED 383 10^3/uL (150-450); WHITE BLOOD COUNT 9.5 10^3/uL (4.0-10.0)
[2023-08-08] MEDS: MAGNESIUM OXIDE 400MG TAB (MAG-OX) PO SCH (09:08)
[2023-08-08] MEDS: MAG SULF 1GM/100ML (MAG RUN) 1 GM in IV 1 EA IV SCH (09:08)
[2023-08-08] MEDS ORDERED: MAGN400T2 PO (09:41)
[2023-08-08] MEDS ORDERED: AZIT500T5 PO (09:41)
[2023-08-08] MEDS ORDERED: CEFD1CAP9 PO (09:41)
[2023-08-08] MEDS ORDERED: BACI1TAB20 PO (09:41)
== END 2023-08-08 12:35 | disposition home or self-care (01) | DRG 662 ==
LOC: M ED 10:44 → M ED INP 17:03 → ENRESERV 20:56 → M MSPAV 21:42
PROVIDERS: ADMIT Internal Medicine; ATTEND Internal Medicine
PROC: 30233N1 Transfusion of Nonautologous Red Blood Cells into Peripheral Vein, Percutaneous Approach (ICD-10-PCS; principal; 2023-08-05)
DX: D57.00 Hb-SS disease with crisis, unspecified (principal); U07.1 COVID-19; E87.5 Hyperkalemia; J45.20 Mild intermittent asthma, uncomplicated; R74.01 Elevation of levels of liver transaminase levels; Z90.49 Acquired absence of other specified parts of digestive tract; Z90.81 Acquired absence of spleen; R51.9 Headache, unspecified; M79.89 Other specified soft tissue disorders; Z79.899 Other long term (current) drug therapy; Z91.013 Allergy to seafood; Z91.018 Allergy to other foods; Z91.048 Other nonmedicinal substance allergy status

== ENCOUNTER 2023-09-14 06:37 | Inpatient (IN) | payer BC ==
[~2023-09-14] VITALS: Ht 167.6 cm; Wt 82.0 kg
[~2023-09-14 06:37] MED LIST changes: +AZIT500T5 PO; +BACI1TAB20 PO; +CEFD1CAP9 PO; +DOXY-440 PO; -DOXY-444 PO; +MAGN400T2 PO
[2023-09-14 07:39] LABS: BASO # 0.1 10^3/uL (0.0-0.2); BASO % 0.8 % (0.0-1.0); EOS % 7.3 % (0.0-3.0); HEMATOCRIT 22.4 % (36.0-47.0); HEMOGLOBIN 7.7 g/dl (12.0-15.5); LYMPH # 4.3 10^3/uL (1.5-5.0); LYMPH % 33.1 % (24.0-44.0); MEAN CORPUSCULAR HEMOGLOBIN 29.8 pg (27.0-33.0); MEAN CORPUSCULAR HGB CONC 34.4 g/dl (32.0-36.5); MEAN CORPUSCULAR VOLUME 86.8 fl (80.0-96.0); MONO # 0.9 10^3/uL (0.0-0.8); MONO % 6.8 % (2.0-8.0); NEUTROPHILS # 6.7 10^3/uL (1.5-8.5); NEUTROPHILS % 51.5 % (36.0-66.0); PLATELET COUNT, AUTOMATED 530 10^3/uL (150-450); RED BLOOD COUNT 2.58 10^6/uL (4.00-5.40)
[2023-09-14 07:49] LABS: CPK CREATINE PHOSPHOKINASE 71 U/L (34-145)
[2023-09-14 08:38] LABS: BLOOD UREA NITROGEN 8 MG/DL (9-23); CALCIUM LEVEL 9.2 MG/DL (8.5-10.1); CARBON DIOXIDE LEVEL 23 MMOL/L (20-31); CHLORIDE LEVEL 108 MMOL/L (98-107); CK-MB VALUE MASS < 1.0 NG/ML (<3.6); CREATININE FOR GFR 0.46 MG/DL (0.55-1.30); GLOMERULAR FILTRATION RATE > 60.0 (>60); GLUCOSE, FASTING 102 MG/DL (60-100); POTASSIUM SERUM 4.1 MMOL/L (3.5-5.1); SODIUM LEVEL 138 MMOL/L (136-145)
[2023-09-14 08:46] LABS: CK-MB VALUE MASS < 1.0 NG/ML (<3.6)
[2023-09-14 08:49] LABS: CPK CREATINE PHOSPHOKINASE 71 U/L (34-145)
[2023-09-14] MEDS: NS 1,000 ML IV ONE ×2 (08:50→13:38)
[2023-09-14] MEDS: HYDROXYUREA 500 MG CAP PO SCH (09:00)
[2023-09-14] MEDS: oxyCODONE 10 MG CR TAB PO SCH (09:00)
[2023-09-14] MEDS ORDERED: PENICILLIN V POTASSIUM 500 MG TAB PO SCH (09:00)
[2023-09-14] MEDS: fentaNYL 100 MCG/2 ML INJECTION IV PRN (09:20)
[2023-09-14] MEDS: MOXIFLOXACIN HCL 400 MG in IV 1 EA IV ONE (09:21)
[2023-09-14 10:04] LABS: ALBUMIN 3.4 G/DL (3.2-5.2); BILIRUBIN,DIRECT 0.8 MG/DL (<0.4); BILIRUBIN,TOTAL 5.6 MG/DL (0.3-1.2); TOTAL PROTEIN 6.7 G/DL (5.7-8.2)
[2023-09-14 10:07] LABS: HCG, SERUM QUALITATIVE NEGATIVE (NEGATIVE)
[2023-09-14] MEDS: D5W/0.45% SODIUM CHLORIDE 1,000 ML IV SCH (10:57)
[2023-09-14] MEDS ORDERED: HOME MED LIST COMPLETE! XX SCH (11:15)
[2023-09-14] MEDS: HYDROMORPHONE HCL 0.5 MG/ 0.5 ML SYRINGE IV PRN ×3 (11:58→21:02)
[2023-09-14 14:00] VITALS: BP 127/71; TEMP 97.3; O2SAT 98
[2023-09-14] MEDS: FOLIC ACID 1MG TAB PO SCH (14:23)
[2023-09-14] MEDS: DOCUSATE SODIUM 100MG CAPSULE PO SCH (14:23)
[2023-09-14 15:25] VITALS: BP 95/65; TEMP 97.7; O2SAT 97
[2023-09-14 15:40] VITALS: BP 99/63; TEMP 97.5; O2SAT 97
[2023-09-14 16:14] VITALS: BP 119/78; TEMP 97.7; O2SAT 97
[2023-09-14] MEDS: ONDANSETRON 4MG 2ML VIAL IV PRN (17:46)
[2023-09-14] MEDS: NS 1,000 ML IV SCH (17:48)
[2023-09-14 19:57] VITALS: BP 117/66; O2SAT 93
[2023-09-14] MEDS: PROMETHAZINE 25MG/ML 1ML VIAL IV PRN (20:39)
[2023-09-14] MEDS: PENICILLIN V POTASSIUM 500 MG TAB PO SCH (21:01)
[2023-09-14] MEDS: ACETAMINOPHEN TAB 650MG DOSE (2X325MG) PO PRN (21:34)
[2023-09-15 05:29] VITALS: BP 119/63; TEMP 97.3; O2SAT 95
[2023-09-15 08:04] LABS: ALBUMIN 2.9 G/DL (3.2-5.2); ALKALINE PHOSPHATASE 57 U/L (46-116); ALT/SGPT 17 U/L (7.0-40); AST/SGOT 27 U/L (<34); BILIRUBIN,TOTAL 5.4 MG/DL (0.3-1.2); BLOOD UREA NITROGEN 6 MG/DL (9-23); CALCIUM LEVEL 8.8 MG/DL (8.5-10.1); CARBON DIOXIDE LEVEL 25 MMOL/L (20-31); CHLORIDE LEVEL 114 MMOL/L (98-107); CREATININE FOR GFR 0.43 MG/DL (0.55-1.30); GLOMERULAR FILTRATION RATE > 60.0 (>60); GLUCOSE, FASTING 85 MG/DL (60-100); MAGNESIUM LEVEL 1.6 MG/DL (1.8-2.4); POTASSIUM SERUM 4.5 MMOL/L (3.5-5.1); SODIUM LEVEL 144 MMOL/L (136-145); TOTAL PROTEIN 5.9 G/DL (5.7-8.2)
[2023-09-15 08:19] LABS: HEMATOCRIT 22.1 % (36.0-47.0); HEMOGLOBIN 7.7 g/dl (12.0-15.5); MEAN CORPUSCULAR HEMOGLOBIN 30.1 pg (27.0-33.0); MEAN CORPUSCULAR HGB CONC 34.8 g/dl (32.0-36.5); MEAN CORPUSCULAR VOLUME 86.3 fl (80.0-96.0); PLATELET COUNT, AUTOMATED 459 10^3/uL (150-450); RED BLOOD COUNT 2.56 10^6/uL (4.00-5.40); WHITE BLOOD COUNT 11.4 10^3/uL (4.0-10.0)
[2023-09-15 08:45] LABS: ATYPICAL LYMPH 1 % (0-5); BLAST CELLS 2 % (0-0); EOSINOPHILS 9 % (0-3); LYMPHOCYTES 56 % (16-44); MONOCYTES 4 % (0-5); NEUTROPHILS 28 % (28-66); PLATELET ESTIMATE NORMAL (NORMAL)
[2023-09-15 08:46] LABS: ANISOCYTOSIS 2+; OVALOCYTES 1+; POIKILOCYTOSIS 2+; POLYCHROMASIA 1+; SICKLE CELLS 2+
[2023-09-15 08:48] LABS: HOWELL-JOLLY BODIES 1+
[2023-09-15 08:49] LABS: SCHISTOCYTES 1+
[2023-09-15] MEDS ORDERED: oxyCODONE 5MG TAB PO PRN (13:30)
[2023-09-15 14:00] VITALS: BP 147/92; TEMP 96.8; O2SAT 96
[2023-09-15 15:00] VITALS: BP 122/57
[2023-09-15] MEDS: oxyCODONE 5MG TAB PO PRN (15:44)
[2023-09-15] MEDS: MAGNESIUM GLUCONATE 500 MG TAB PO SCH (18:23)
[2023-09-15] MEDS: oxyCODONE 10 MG CR TAB PO SCH (20:01)
[2023-09-15 20:34] VITALS: BP 133/69; TEMP 97.2; O2SAT 97
[2023-09-16] MEDS: HYDROmorphone HCL 2MG/ML 1ML VIAL IV PRN (03:45)
[2023-09-16] MEDS ORDERED: ISOVUE-370 76% 100ML VIAL As Ordered ONE (03:57)
[2023-09-16] MEDS ORDERED: ALBUTEROL SULFATE 2.5MG/0.5ML INH NEB SOLN NEB PRN (04:00)
[2023-09-16 04:53] LABS: VENOUS BASE EXCESS -1.4 (-2.0-2.0); VENOUS HCO3 24.9 MMOL/L (23.0-27.0); VENOUS O2 SATURATION 86.8 % (60.0-80.0); VENOUS PARTIAL PRESSURE O2 68.5 mmHg (30.0-50.0); VENOUS PH 7.315 UNITS (7.330-7.430); VENOUS STANDARD HCO3 23.2 MMOL/L; VENOUS TOTAL CO2 26.4 MMOL/L (24.0-28.0)
[2023-09-16 05:00] LABS: BASO # 0.1 10^3/uL (0.0-0.2); BASO % 0.5 % (0.0-1.0); EOS # 1.4 10^3/uL (0.0-0.5); EOS % 10.7 % (0.0-3.0); HEMATOCRIT 21.2 % (36.0-47.0); HEMOGLOBIN 7.5 g/dl (12.0-15.5); LYMPH # 6.4 10^3/uL (1.5-5.0); LYMPH % 49.8 % (24.0-44.0); MEAN CORPUSCULAR HEMOGLOBIN 30.7 pg (27.0-33.0); MEAN CORPUSCULAR HGB CONC 35.4 g/dl (32.0-36.5); MEAN CORPUSCULAR VOLUME 86.9 fl (80.0-96.0); MONO # 0.7 10^3/uL (0.0-0.8); MONO % 5.3 % (2.0-8.0); NEUTROPHILS # 4.3 10^3/uL (1.5-8.5); NEUTROPHILS % 33.5 % (36.0-66.0); PLATELET COUNT, AUTOMATED 474 10^3/uL (150-450); RED BLOOD COUNT 2.44 10^6/uL (4.00-5.40); WHITE BLOOD COUNT 12.9 10^3/uL (4.0-10.0)
[2023-09-16 05:29] LABS: CK-MB VALUE MASS < 1.0 NG/ML (<3.6)
[2023-09-16 05:30] LABS: CPK CREATINE PHOSPHOKINASE 45 U/L (34-145); MB/CK RELATIVE INDEX 2.22 (< OR =4)
[2023-09-16 05:31] LABS: ALBUMIN 2.9 G/DL (3.2-5.2); ALKALINE PHOSPHATASE 58 U/L (46-116); ALT/SGPT 16 U/L (7.0-40); AST/SGOT 27 U/L (<34); BILIRUBIN,TOTAL 3.7 MG/DL (0.3-1.2); BLOOD UREA NITROGEN 8 MG/DL (9-23); CALCIUM LEVEL 8.4 MG/DL (8.5-10.1); CARBON DIOXIDE LEVEL 26 MMOL/L (20-31); CHLORIDE LEVEL 110 MMOL/L (98-107); CREATININE FOR GFR 0.43 MG/DL (0.55-1.30); GLOMERULAR FILTRATION RATE > 60.0 (>60); GLUCOSE, FASTING 91 MG/DL (60-100); MAGNESIUM LEVEL 1.6 MG/DL (1.8-2.4); POTASSIUM SERUM 4.2 MMOL/L (3.5-5.1); SODIUM LEVEL 143 MMOL/L (136-145); TOTAL PROTEIN 5.8 G/DL (5.7-8.2)
[2023-09-16] MEDS: MAGNESIUM OXIDE 400MG TAB (MAG-OX) PO ONE (06:07)
[2023-09-16 06:13] VITALS: BP 118/63; TEMP 97; O2SAT 94
[2023-09-16] MEDS: ENOXAPARIN 40MG/0.4ML SYRINGE (J1650 PER 10MG) SC SCH (09:58)
[2023-09-16] MEDS: SYMBICORT 160/4.5MCG INHALER 6GM INH SCH (10:10)
[2023-09-16] MEDS: ALBUTEROL 90 MCG/ACT 8GM HFA INHALER INH SCH (10:11)
[2023-09-16 11:50] VITALS: O2SAT 98
[2023-09-16 14:00] VITALS: BP 131/70; TEMP 97.7; O2SAT 100
[2023-09-16] MEDS: HYDROMORPHONE HCL 0.5 MG/ 0.5 ML SYRINGE IV PRN (15:46)
[2023-09-16 20:22] VITALS: BP 122/70; TEMP 97.7; O2SAT 96
[2023-09-17 06:06] VITALS: BP 123/70; TEMP 97.5; O2SAT 100
[2023-09-17 07:49] LABS: BASO # 0.1 10^3/uL (0.0-0.2); BASO % 0.6 % (0.0-1.0); EOS # 1.4 10^3/uL (0.0-0.5); EOS % 10.7 % (0.0-3.0); HEMATOCRIT 22.5 % (36.0-47.0); HEMOGLOBIN 7.8 g/dl (12.0-15.5); LYMPH # 4.8 10^3/uL (1.5-5.0); LYMPH % 37.8 % (24.0-44.0); MEAN CORPUSCULAR HEMOGLOBIN 29.8 pg (27.0-33.0); MEAN CORPUSCULAR HGB CONC 34.7 g/dl (32.0-36.5); MEAN CORPUSCULAR VOLUME 85.9 fl (80.0-96.0); MONO # 0.8 10^3/uL (0.0-0.8); NEUTROPHILS # 5.6 10^3/uL (1.5-8.5); NEUTROPHILS % 44.7 % (36.0-66.0); PLATELET COUNT, AUTOMATED 519 10^3/uL (150-450); RED BLOOD COUNT 2.62 10^6/uL (4.00-5.40); WHITE BLOOD COUNT 12.6 10^3/uL (4.0-10.0)
[2023-09-17 08:16] LABS: ALKALINE PHOSPHATASE 55 U/L (46-116); ALT/SGPT 17 U/L (7.0-40); AST/SGOT 31 U/L (<34); BILIRUBIN,TOTAL 3.4 MG/DL (0.3-1.2); BLOOD UREA NITROGEN 8 MG/DL (9-23); CALCIUM LEVEL 8.9 MG/DL (8.5-10.1); CARBON DIOXIDE LEVEL 27 MMOL/L (20-31); CHLORIDE LEVEL 108 MMOL/L (98-107); CREATININE FOR GFR 0.42 MG/DL (0.55-1.30); GLOMERULAR FILTRATION RATE > 60.0 (>60); GLUCOSE, FASTING 93 MG/DL (60-100); MAGNESIUM LEVEL 1.7 MG/DL (1.8-2.4); SODIUM LEVEL 141 MMOL/L (136-145); TOTAL PROTEIN 5.9 G/DL (5.7-8.2)
[2023-09-17] MEDS: MAGNESIUM OXIDE 400MG TAB (MAG-OX) PO SCH (09:33)
[2023-09-17] MEDS: oxyCODONE 5MG TAB PO PRN (13:10)
[2023-09-17 14:03] VITALS: BP 132/71; TEMP 97.9; O2SAT 93
[2023-09-17 20:23] VITALS: BP 130/68; TEMP 97.3; O2SAT 92
[2023-09-17] MEDS: SENNA 8.6 MG TAB (SENOKOT) PO SCH (20:49)
[2023-09-18 05:38] VITALS: BP 131/73; TEMP 97.5; O2SAT 95
[2023-09-18 06:05] LABS: BASO # 0.1 10^3/uL (0.0-0.2); BASO % 0.7 % (0.0-1.0); EOS # 1.3 10^3/uL (0.0-0.5); EOS % 11.1 % (0.0-3.0); HEMOGLOBIN 7.2 g/dl (12.0-15.5); LYMPH # 4.9 10^3/uL (1.5-5.0); LYMPH % 43.1 % (24.0-44.0); MEAN CORPUSCULAR HEMOGLOBIN 29.5 pg (27.0-33.0); MEAN CORPUSCULAR HGB CONC 34.8 g/dl (32.0-36.5); MEAN CORPUSCULAR VOLUME 84.8 fl (80.0-96.0); MONO # 0.7 10^3/uL (0.0-0.8); MONO % 5.7 % (2.0-8.0); NEUTROPHILS # 4.5 10^3/uL (1.5-8.5); NEUTROPHILS % 39.2 % (36.0-66.0); PLATELET COUNT, AUTOMATED 486 10^3/uL (150-450); RED BLOOD COUNT 2.44 10^6/uL (4.00-5.40); WHITE BLOOD COUNT 11.5 10^3/uL (4.0-10.0)
[2023-09-18 06:16] LABS: HEMATOCRIT 20.7 % (36.0-47.0)
[2023-09-18 06:37] LABS: ALKALINE PHOSPHATASE 56 U/L (46-116); ALT/SGPT 19 U/L (7.0-40); AST/SGOT 32 U/L (<34); BILIRUBIN,TOTAL 3.1 MG/DL (0.3-1.2); BLOOD UREA NITROGEN 8 MG/DL (9-23); CALCIUM LEVEL 8.9 MG/DL (8.5-10.1); CARBON DIOXIDE LEVEL 27 MMOL/L (20-31); CHLORIDE LEVEL 110 MMOL/L (98-107); CREATININE FOR GFR 0.44 MG/DL (0.55-1.30); GLOMERULAR FILTRATION RATE > 60.0 (>60); GLUCOSE, FASTING 95 MG/DL (60-100); MAGNESIUM LEVEL 1.7 MG/DL (1.8-2.4); POTASSIUM SERUM 4.4 MMOL/L (3.5-5.1); SODIUM LEVEL 142 MMOL/L (136-145)
[2023-09-18] MEDS: MAG SULF 1GM/100ML (MAG RUN) 1 GM in IV 1 EA IV SCH (07:43)
[2023-09-18] MEDS ORDERED: MAGN400T2 PO (08:20)
[2023-09-18] MEDS ORDERED: SENO8.6T5 PO (08:20)
== END 2023-09-18 11:30 | disposition home or self-care (01) | DRG 662 ==
LOC: M ED 06:37 → M ED INP 12:13 → M MS5PR 13:20
PROVIDERS: ADMIT Internal Medicine Nephrology; ATTEND Internal Medicine
PROC: 30233N1 Transfusion of Nonautologous Red Blood Cells into Peripheral Vein, Percutaneous Approach (ICD-10-PCS; principal; 2023-09-14)
DX: D57.00 Hb-SS disease with crisis, unspecified (principal); E83.42 Hypomagnesemia; J45.909 Unspecified asthma, uncomplicated; Z90.49 Acquired absence of other specified parts of digestive tract; Z91.013 Allergy to seafood; Z91.018 Allergy to other foods; Z91.048 Other nonmedicinal substance allergy status; R07.89 Other chest pain; M54.50 Low back pain, unspecified; D59.9 Acquired hemolytic anemia, unspecified

== ENCOUNTER 2023-11-12 00:58 | Inpatient (IN) | payer BC ==
[2023-11-12] VITALS (9 sets, daily range): BP systolic 105–127; BP diastolic 56–78; TEMP 97.2–98.3; O2SAT 92–99
[~2023-11-12] VITALS: Ht 167.6 cm; Wt 87.4 kg
[~2023-11-12 00:58] MED LIST changes: +SENO8.6T5 PO
[2023-11-12] MEDS: NS 1,000 ML IV ONE (01:40)
[2023-11-12] MEDS: ONDANSETRON 4MG 2ML VIAL IV ONE (01:40)
[2023-11-12] MEDS: MORPHINE 4 MG/ML 1ML VIAL IV PRN (01:46)
[2023-11-12 02:11] LABS: BASO # 0.1 10^3/uL (0.0-0.2); BASO % 0.8 % (0.0-1.0); EOS # 0.9 10^3/uL (0.0-0.5); EOS % 6.3 % (0.0-3.0); HEMATOCRIT 22.3 % (36.0-47.0); HEMOGLOBIN 8.2 g/dl (12.0-15.5); LYMPH % 41.6 % (24.0-44.0); MEAN CORPUSCULAR HEMOGLOBIN 32.7 pg (27.0-33.0); MEAN CORPUSCULAR VOLUME 88.8 fl (80.0-96.0); MONO # 0.9 10^3/uL (0.0-0.8); NEUTROPHILS # 6.5 10^3/uL (1.5-8.5); NEUTROPHILS % 44.9 % (36.0-66.0); PLATELET COUNT, AUTOMATED 472 10^3/uL (150-450); RED BLOOD COUNT 2.51 10^6/uL (4.00-5.40); WHITE BLOOD COUNT 14.4 10^3/uL (4.0-10.0)
[2023-11-12 02:13] LABS: MEAN CORPUSCULAR HGB CONC 36.8 g/dl (32.0-36.5)
[2023-11-12 02:22] LABS: LIPASE 30 U/L (12-53)
[2023-11-12 02:24] LABS: ALBUMIN 3.3 G/DL (3.2-5.2); ALKALINE PHOSPHATASE 68 U/L (46-116); ALT/SGPT 38 U/L (7.0-40); AST/SGOT 51 U/L (<34); BILIRUBIN,DIRECT 1.1 MG/DL (<0.4); BILIRUBIN,TOTAL 4.6 MG/DL (0.3-1.2); BLOOD UREA NITROGEN 10 MG/DL (9-23); CALCIUM LEVEL 8.9 MG/DL (8.5-10.1); CARBON DIOXIDE LEVEL 22 MMOL/L (20-31); CHLORIDE LEVEL 110 MMOL/L (98-107); CK-MB VALUE MASS < 1.0 NG/ML (<3.6); CREATININE FOR GFR 0.45 MG/DL (0.55-1.30); GLOMERULAR FILTRATION RATE > 60.0 (>60); GLUCOSE, FASTING 89 MG/DL (60-100); POTASSIUM SERUM 4.1 MMOL/L (3.5-5.1); SODIUM LEVEL 138 MMOL/L (136-145); TOTAL PROTEIN 6.4 G/DL (5.7-8.2)
[2023-11-12 02:25] LABS: CPK CREATINE PHOSPHOKINASE 52 U/L (34-145); MB/CK RELATIVE INDEX 1.92 (< OR =4)
[2023-11-12 03:25] LABS: CK-MB VALUE MASS < 1.0 NG/ML (<3.6)
[2023-11-12 03:28] LABS: CPK CREATINE PHOSPHOKINASE 47 U/L (34-145); MB/CK RELATIVE INDEX 2.12 (< OR =4)
[2023-11-12] MEDS ORDERED: ISOVUE-370 76% 100ML VIAL As Ordered ONE (03:58)
[2023-11-12] MEDS: HYDROMORPHONE HCL 0.5 MG/ 0.5 ML SYRINGE IV PRN ×2 (04:22→09:23)
[2023-11-12] MEDS ORDERED: HYDROMORPHONE HCL 0.5 MG/ 0.5 ML SYRINGE IV PRN ×2 (06:30→08:50)
[2023-11-12 08:05] LABS: HEMATOCRIT 19.3 % (36.0-47.0); HEMOGLOBIN 6.8 g/dl (12.0-15.5)
[2023-11-12] MEDS ORDERED: ACET1TAB55 PO (08:08)
[2023-11-12] MEDS ORDERED: HOME MED LIST COMPLETE! XX SCH (08:10)
[2023-11-12 08:25] LABS: LDH LACTATE DEHYDROGENASE 671 U/L (120-246)
[2023-11-12] MEDS: NS 1,000 ML IV SCH ×2 (08:25→08:50)
[2023-11-12] MEDS: SENOKOT S TAB PO SCH (09:00)
[2023-11-12] MEDS: UNRESOLVED CLARIFICATION ENTRY XX SCH (09:00)
[2023-11-12] MEDS: MIRALAX *UNIT DOSE* 17GM PACKET PO SCH (09:00)
[2023-11-12] MEDS: FOLIC ACID 1MG TAB PO SCH (09:00)
[2023-11-12] MEDS: ACETAMINOPHEN TAB 650MG DOSE (2X325MG) PO PRN (09:17)
[2023-11-12 09:38] LABS: PROCALCITONIN <0.04 ng/ml
[2023-11-12 10:07] LABS: INR 1.14; PARTIAL THROMBOPLASTIN TIME 21.7 SECONDS (24.8-34.2); PROTHROMBIN TIME 14.2 SECONDS (12.5-14.5)
[2023-11-12 10:41] LABS: BASO # 0.1 10^3/uL (0.0-0.2); BASO % 0.7 % (0.0-1.0); EOS % 7.9 % (0.0-3.0); LYMPH # 5.8 10^3/uL (1.5-5.0); LYMPH % 45.8 % (24.0-44.0); MEAN CORPUSCULAR HEMOGLOBIN 32.1 pg (27.0-33.0); MEAN CORPUSCULAR HGB CONC 35.5 g/dl (32.0-36.5); MEAN CORPUSCULAR VOLUME 90.5 fl (80.0-96.0); MONO # 0.8 10^3/uL (0.0-0.8); MONO % 6.6 % (2.0-8.0); NEUTROPHILS # 4.9 10^3/uL (1.5-8.5); NEUTROPHILS % 38.7 % (36.0-66.0); PLATELET COUNT, AUTOMATED 442 10^3/uL (150-450); RED BLOOD COUNT 2.21 10^6/uL (4.00-5.40); WHITE BLOOD COUNT 12.6 10^3/uL (4.0-10.0)
[2023-11-12 10:59] LABS: HEMOGLOBIN 7.1 g/dl (12.0-15.5)
[2023-11-12 11:20] LABS: HCG, SERUM QUALITATIVE NEGATIVE (NEGATIVE)
[2023-11-12] MEDS: MORPHINE 2 MG/ML 1ML VIAL IV PRN (12:12)
[2023-11-12] MEDS: HYDROXYUREA 500 MG CAP PO SCH (13:05)
[2023-11-12] MEDS: PENICILLIN V POTASSIUM 500 MG TAB PO SCH (13:06)
[2023-11-12] MEDS ORDERED: HYDROmorphone 2 MG TAB PO PRN (15:30)
[2023-11-12] MEDS ORDERED: KETOROLAC 30 MG/ML 1ML VIAL IV ONE (16:00)
[2023-11-12] MEDS: HYDROmorphone 4MG TABLET PO PRN (16:18)
[2023-11-12 17:32] LABS: HEMATOCRIT 21.1 % (36.0-47.0); HEMOGLOBIN 7.7 g/dl (12.0-15.5)
[2023-11-12] MEDS: ENOXAPARIN 40MG/0.4ML SYRINGE (J1650 PER 10MG) SC SCH (21:00)
[2023-11-12 21:24] LABS: HEMATOCRIT 25.2 % (36.0-47.0); HEMOGLOBIN 9.4 g/dl (12.0-15.5)
[2023-11-12] MEDS ORDERED: KETOROLAC 30 MG/ML 1ML VIAL IV PRN (22:00)
[2023-11-13] VITALS (18 sets, daily range): BP systolic 102–127; BP diastolic 59–75; TEMP 97.3–97.8; O2SAT 87–99
[2023-11-13 06:09] LABS: BASO # 0.1 10^3/uL (0.0-0.2); BASO % 0.9 % (0.0-1.0); EOS # 1.2 10^3/uL (0.0-0.5); EOS % 12.8 % (0.0-3.0); HEMATOCRIT 24.8 % (36.0-47.0); HEMOGLOBIN 8.9 g/dl (12.0-15.5); LYMPH % 42.3 % (24.0-44.0); MEAN CORPUSCULAR HEMOGLOBIN 31.2 pg (27.0-33.0); MEAN CORPUSCULAR HGB CONC 35.9 g/dl (32.0-36.5); MONO # 0.6 10^3/uL (0.0-0.8); MONO % 6.5 % (2.0-8.0); NEUTROPHILS # 3.6 10^3/uL (1.5-8.5); NEUTROPHILS % 37.3 % (36.0-66.0); PLATELET COUNT, AUTOMATED 425 10^3/uL (150-450); RED BLOOD COUNT 2.85 10^6/uL (4.00-5.40); WHITE BLOOD COUNT 9.5 10^3/uL (4.0-10.0)
[2023-11-13 06:25] LABS: ALBUMIN 2.9 G/DL (3.2-5.2); ALKALINE PHOSPHATASE 59 U/L (46-116); ALT/SGPT 34 U/L (7.0-40); AST/SGOT 46 U/L (<34); BILIRUBIN,TOTAL 2.9 MG/DL (0.3-1.2); BLOOD UREA NITROGEN 7 MG/DL (9-23); CALCIUM LEVEL 8.5 MG/DL (8.5-10.1); CARBON DIOXIDE LEVEL 23 MMOL/L (20-31); CHLORIDE LEVEL 113 MMOL/L (98-107); CREATININE FOR GFR 0.44 MG/DL (0.55-1.30); GLOMERULAR FILTRATION RATE > 60.0 (>60); GLUCOSE, FASTING 92 MG/DL (60-100); MAGNESIUM LEVEL 1.8 MG/DL (1.8-2.4); POTASSIUM SERUM 4.4 MMOL/L (3.5-5.1); SODIUM LEVEL 141 MMOL/L (136-145); TOTAL PROTEIN 5.8 G/DL (5.7-8.2)
[2023-11-13] MEDS: HYDROMORPHONE HCL 0.5 MG/ 0.5 ML SYRINGE IV PRN ×2 (08:27→11:25)
[2023-11-13 09:14] LABS: C REACTIVE PROTEIN QUANTITATIV < 0.40 MG/DL (<1.0)
[2023-11-13] MEDS: ONDANSETRON 4MG 2ML VIAL IV PRN (12:18)
[2023-11-13 14:47] LABS: CK-MB VALUE MASS < 1.0 NG/ML (<3.6)
[2023-11-13 14:51] LABS: CPK CREATINE PHOSPHOKINASE 47 U/L (34-145); MB/CK RELATIVE INDEX 2.12 (< OR =4)
[2023-11-13 15:11] LABS: CK-MB VALUE MASS < 1.0 NG/ML (<3.6)
[2023-11-13 15:14] LABS: CPK CREATINE PHOSPHOKINASE 58 U/L (34-145); MB/CK RELATIVE INDEX 1.72 (< OR =4)
[2023-11-13 20:47] LABS: HEMATOCRIT 23.8 % (36.0-47.0); HEMOGLOBIN 8.9 g/dl (12.0-15.5)
[2023-11-14] VITALS (8 sets, daily range): BP systolic 130–132; BP diastolic 76–84; TEMP 97.6–97.9; O2SAT 91–98
[2023-11-14] MEDS: POLYTRIM OPTH DROPS 10ML OD SCH (02:12)
[2023-11-14 05:00] LABS: HEMATOCRIT 22.5 % (36.0-47.0); HEMOGLOBIN 8.2 g/dl (12.0-15.5); MEAN CORPUSCULAR HEMOGLOBIN 31.3 pg (27.0-33.0); MEAN CORPUSCULAR HGB CONC 36.4 g/dl (32.0-36.5); MEAN CORPUSCULAR VOLUME 85.9 fl (80.0-96.0); PLATELET COUNT, AUTOMATED 402 10^3/uL (150-450); RED BLOOD COUNT 2.62 10^6/uL (4.00-5.40); WHITE BLOOD COUNT 9.4 10^3/uL (4.0-10.0)
[2023-11-14 05:27] LABS: ALBUMIN 2.9 G/DL (3.2-5.2); ALKALINE PHOSPHATASE 59 U/L (46-116); ALT/SGPT 34 U/L (7.0-40); AST/SGOT 46 U/L (<34); BILIRUBIN,TOTAL 3.1 MG/DL (0.3-1.2); BLOOD UREA NITROGEN 10 MG/DL (9-23); CALCIUM LEVEL 8.9 MG/DL (8.5-10.1); CARBON DIOXIDE LEVEL 25 MMOL/L (20-31); CHLORIDE LEVEL 110 MMOL/L (98-107); GLOMERULAR FILTRATION RATE > 60.0 (>60); GLUCOSE, FASTING 94 MG/DL (60-100); MAGNESIUM LEVEL 1.6 MG/DL (1.8-2.4); POTASSIUM SERUM 4.8 MMOL/L (3.5-5.1); SODIUM LEVEL 141 MMOL/L (136-145); TOTAL PROTEIN 5.8 G/DL (5.7-8.2)
[2023-11-14 05:40] LABS: ATYPICAL LYMPH 5 % (0-5); BASOPHILS 1 % (0-1); EOSINOPHILS 6 % (0-3); LYMPHOCYTES 43 % (16-44); NEUTROPHILS 40 % (28-66)
[2023-11-14 05:41] LABS: ANISOCYTOSIS 3+; PLATELET ESTIMATE NORMAL (NORMAL); SICKLE CELLS 4+
[2023-11-14 05:47] LABS: MONOCYTES 5 % (0-5)
[2023-11-14] MEDS ORDERED: PERCOCET 5MG/325MG TAB PO PRN ×2 (07:20→12:00)
[2023-11-14] MEDS: PERCOCET 5MG/325MG TAB PO PRN (09:19)
[2023-11-14] MEDS: MAG SULF 1GM/100ML (MAG RUN) 1 GM in IV 1 EA IV SCH (09:19)
[2023-11-14] MEDS ORDERED: PERCOCET PO (12:24)
[2023-11-14] MEDS ORDERED: POLY2.5S OP (14:06)
== END 2023-11-14 14:00 | disposition home or self-care (01) | DRG 662 ==
LOC: M ED 00:58 → M ED INP 08:50 → M PCU 14:39
PROVIDERS: ADMIT Internal Medicine; ATTEND Internal Medicine
PROC: 30233N1 Transfusion of Nonautologous Red Blood Cells into Peripheral Vein, Percutaneous Approach (ICD-10-PCS; principal; 2023-11-12)
DX: D57.00 Hb-SS disease with crisis, unspecified (principal); H10.9 Unspecified conjunctivitis; J45.909 Unspecified asthma, uncomplicated; Z79.899 Other long term (current) drug therapy; Z91.013 Allergy to seafood; Z91.018 Allergy to other foods; Z91.048 Other nonmedicinal substance allergy status; D59.9 Acquired hemolytic anemia, unspecified

== ENCOUNTER 2023-11-29 10:12 | Outpatient (CLI) | payer BC ==
[~2023-11-29] VITALS: Ht 167.6 cm; Wt 81.8 kg
[~2023-11-29 10:12] MED LIST changes: +PERCOCET PO; +POLY2.5S OP
[2023-11-29 10:30] VITALS: BP 116/64; O2SAT 93
[2023-11-29] MEDS: ACETAMINOPHEN TAB 650MG DOSE (2X325MG) PO ONE (10:44)
[2023-11-29] MEDS: diphenhydrAMINE 25MG CAP PO ONE (10:44)
[2023-11-29 11:25] VITALS: BP 121/64; TEMP 97.8; O2SAT 95
[2023-11-29 12:28] VITALS: BP 114/58; TEMP 96.8; O2SAT 94
[2023-11-29 13:10] VITALS: BP 112/55; O2SAT 96
== END 2023-11-29 13:10 ==
LOC: M INFU 10:12
PROVIDERS: ATTEND Dietitian, Registered
DX: D57.20 Sickle-cell/Hb-C disease without crisis (principal); Z91.018 Allergy to other foods; Z91.048 Other nonmedicinal substance allergy status
CPT/HCPCS: 36430; P9016

== ENCOUNTER 2023-12-01 08:36 | Observation (INO) | payer BC ==
[~2023-12-01] VITALS: Ht 167.6 cm; Wt 82.3 kg
[2023-12-01] MEDS: POLYTRIM OPTH DROPS 10ML OD SCH (09:00)
[2023-12-01] MEDS: NS 500 ML IV ONE (09:05)
[2023-12-01] MEDS: ONDANSETRON 4MG 2ML VIAL IV ONE (09:05)
[2023-12-01 09:35] LABS: HEMATOCRIT 24.5 % (36.0-47.0); HEMOGLOBIN 8.7 g/dl (12.0-15.5); MEAN CORPUSCULAR HEMOGLOBIN 31.1 pg (27.0-33.0); MEAN CORPUSCULAR HGB CONC 35.5 g/dl (32.0-36.5); MEAN CORPUSCULAR VOLUME 87.5 fl (80.0-96.0); WHITE BLOOD COUNT 11.1 10^3/uL (4.0-10.0)
[2023-12-01] MEDS: fentaNYL 100 MCG/2 ML INJECTION ONE ×2 (09:51→10:31)
[2023-12-01 09:57] LABS: ALBUMIN 3.7 G/DL (3.2-5.2); ALKALINE PHOSPHATASE 59 U/L (46-116); ALT/SGPT 35 U/L (7.0-40); AST/SGOT 73 U/L (<34); BILIRUBIN,TOTAL 5.9 MG/DL (0.3-1.2); BLOOD UREA NITROGEN 11 MG/DL (9-23); CALCIUM LEVEL 9.3 MG/DL (8.5-10.1); CARBON DIOXIDE LEVEL 20 MMOL/L (20-31); CHLORIDE LEVEL 107 MMOL/L (98-107); CREATININE FOR GFR 0.42 MG/DL (0.55-1.30); GLOMERULAR FILTRATION RATE > 60.0 (>60); GLUCOSE, FASTING 92 MG/DL (60-100); LIPASE 40 U/L (12-53); SODIUM LEVEL 135 MMOL/L (136-145); TOTAL PROTEIN 7.1 G/DL (5.7-8.2)
[2023-12-01] MEDS: HYDROMORPHONE HCL 0.5 MG/ 0.5 ML SYRINGE IV PRN ×3 (10:01→18:30)
[2023-12-01 10:15] LABS: EOSINOPHILS 13 % (0-3); LYMPHOCYTES 34 % (16-44); MONOCYTES 7 % (0-5); NEUTROPHILS 45 % (28-66); PLASMA CELL 1 % (0-0)
[2023-12-01 10:16] LABS: GIANT PLATELETS 1+; PLATELET CLUMPS SMALL AMT; PLATELET ESTIMATE INCREASED (NORMAL)
[2023-12-01 10:17] LABS: POLYCHROMASIA 1+
[2023-12-01 10:18] LABS: ANISOCYTOSIS 4+; SICKLE CELLS 4+
[2023-12-01 10:20] LABS: OVALOCYTES 1+
[2023-12-01 10:21] LABS: POIKILOCYTOSIS 2+; SCHISTOCYTES 1+
[2023-12-01 10:23] LABS: MICROCYTOSIS 1+
[2023-12-01 10:44] LABS: HCG, SERUM QUALITATIVE NEGATIVE (NEGATIVE)
[2023-12-01] MEDS ORDERED: MAALOX 30 ML SUSP *UDC PO PRN (13:20)
[2023-12-01] MEDS ORDERED: MOM 30ML SUSPENSION UDC PO PRN ×2 (13:20→13:35)
[2023-12-01] MEDS ORDERED: MIRALAX *UNIT DOSE* 17GM PACKET PO PRN (13:35)
[2023-12-01] MEDS: NS 1,000 ML IV SCH (14:18)
[2023-12-01] MEDS: ACETAMINOPHEN TAB 650MG DOSE (2X325MG) PO PRN (14:18)
[2023-12-01 14:34] LABS: ERYTHROCYTE SEDIMENTATION RATE 7 mm/hr (0-20)
[2023-12-01 14:36] LABS: C REACTIVE PROTEIN QUANTITATIV < 0.40 MG/DL (<1.0)
[2023-12-01 14:50] LABS: LDH LACTATE DEHYDROGENASE 899 U/L (120-246)
[2023-12-01] MEDS ORDERED: OXYC1TAB23 PO (14:52)
[2023-12-01] MEDS ORDERED: POLY2.5S OD (14:52)
[2023-12-01] MEDS ORDERED: HOME MED LIST COMPLETE! XX SCH (14:55)
[2023-12-01 16:21] LABS: HEMATOCRIT 21.6 % (36.0-47.0); HEMOGLOBIN 7.6 g/dl (12.0-15.5)
[2023-12-01] MEDS: SENOKOT S TAB PO SCH (21:26)
[2023-12-01] MEDS: PENICILLIN V POTASSIUM 500 MG TAB PO SCH (21:26)
[2023-12-02 00:03] LABS: HEMATOCRIT 21.9 % (36.0-47.0); HEMOGLOBIN 7.8 g/dl (12.0-15.5)
[2023-12-02 08:11] LABS: HEMATOCRIT 21.6 % (36.0-47.0); HEMOGLOBIN 7.7 g/dl (12.0-15.5); MEAN CORPUSCULAR HEMOGLOBIN 31.4 pg (27.0-33.0); MEAN CORPUSCULAR HGB CONC 35.6 g/dl (32.0-36.5); MEAN CORPUSCULAR VOLUME 88.2 fl (80.0-96.0); PLATELET COUNT, AUTOMATED 514 10^3/uL (150-450); RED BLOOD COUNT 2.45 10^6/uL (4.00-5.40); WHITE BLOOD COUNT 9.7 10^3/uL (4.0-10.0)
[2023-12-02] MEDS ORDERED: PERCOCET 5MG/325MG TAB PO PRN (08:20)
[2023-12-02 08:41] LABS: ALBUMIN 3.1 G/DL (3.2-5.2); ALKALINE PHOSPHATASE 57 U/L (46-116); ALT/SGPT 23 U/L (7.0-40); AST/SGOT 36 U/L (<34); BILIRUBIN,TOTAL 3.9 MG/DL (0.3-1.2); BLOOD UREA NITROGEN 9 MG/DL (9-23); CALCIUM LEVEL 9.1 MG/DL (8.5-10.1); CARBON DIOXIDE LEVEL 24 MMOL/L (20-31); CHLORIDE LEVEL 110 MMOL/L (98-107); CREATININE FOR GFR 0.38 MG/DL (0.55-1.30); GLOMERULAR FILTRATION RATE > 60.0 (>60); GLUCOSE, FASTING 89 MG/DL (60-100); MAGNESIUM LEVEL 1.7 MG/DL (1.8-2.4); POTASSIUM SERUM 4.5 MMOL/L (3.5-5.1); SODIUM LEVEL 140 MMOL/L (136-145); TOTAL PROTEIN 6.1 G/DL (5.7-8.2)
[2023-12-02] MEDS: FOLIC ACID 1MG TAB PO SCH (08:49)
[2023-12-02] MEDS: PERCOCET 5MG/325MG TAB PO PRN ×2 (08:50→15:22)
[2023-12-02 09:19] LABS: ANISOCYTOSIS 2+; ATYPICAL LYMPH 6 % (0-5); BASOPHILS 3 % (0-1); EOSINOPHILS 11 % (0-3); LYMPHOCYTES 51 % (16-44); MONOCYTES 2 % (0-5); NEUTROPHILS 27 % (28-66)
[2023-12-02 09:25] LABS: HYPOCHROMASIA 2+; SICKLE CELLS 3+
[2023-12-02 09:26] LABS: PLATELET ESTIMATE INCREASED (NORMAL)
[2023-12-02] MEDS: MAG SULF 1GM/100ML (MAG RUN) 1 GM in IV 1 EA IV ONE (10:28)
[2023-12-02] MEDS: HYDROXYUREA 500 MG CAP PO SCH (10:32)
[2023-12-02 15:15] VITALS: BP 120/65; TEMP 97.8
[2023-12-02] MEDS: HYDROMORPHONE HCL 0.5 MG/ 0.5 ML SYRINGE IV ONE (20:30)
[2023-12-02 21:00] VITALS: BP 110/54; TEMP 97.5; O2SAT 94
[2023-12-02] MEDS: HEPARIN SOD (PORCINE) 5000UNITS/ML 1ML VIAL/SYRINGE SQ SCH (21:35)
[2023-12-03] VITALS (10 sets, daily range): BP systolic 106–127; BP diastolic 52–63; TEMP 97.4–99.1; O2SAT 85–100
[2023-12-03] MEDS: LR 1,000 ML IV SCH (01:30)
[2023-12-03] MEDS: HYDROMORPHONE HCL 0.5 MG/ 0.5 ML SYRINGE IV PRN (01:30)
[2023-12-03] MEDS: PERCOCET 5MG/325MG TAB PO PRN (04:57)
[2023-12-03 06:30] LABS: BASO # 0.1 10^3/uL (0.0-0.2); EOS # 1.4 10^3/uL (0.0-0.5); EOS % 12.3 % (0.0-3.0); LYMPH # 5.5 10^3/uL (1.5-5.0); MEAN CORPUSCULAR HEMOGLOBIN 30.4 pg (27.0-33.0); MEAN CORPUSCULAR HGB CONC 35.3 g/dl (32.0-36.5); MEAN CORPUSCULAR VOLUME 86.1 fl (80.0-96.0); MONO # 0.8 10^3/uL (0.0-0.8); MONO % 6.7 % (2.0-8.0); NEUTROPHILS # 3.5 10^3/uL (1.5-8.5); NEUTROPHILS % 30.7 % (36.0-66.0); PLATELET COUNT, AUTOMATED 503 10^3/uL (150-450); RED BLOOD COUNT 2.37 10^6/uL (4.00-5.40); WHITE BLOOD COUNT 11.2 10^3/uL (4.0-10.0)
[2023-12-03 06:41] LABS: HEMATOCRIT 20.4 % (36.0-47.0); HEMOGLOBIN 7.2 g/dl (12.0-15.5)
[2023-12-03 07:06] LABS: ALBUMIN 3.1 G/DL (3.2-5.2); ALKALINE PHOSPHATASE 54 U/L (46-116); ALT/SGPT 26 U/L (7.0-40); AST/SGOT 47 U/L (<34); BILIRUBIN,TOTAL 4.2 MG/DL (0.3-1.2); BLOOD UREA NITROGEN 7 MG/DL (9-23); CALCIUM LEVEL 9.1 MG/DL (8.5-10.1); CARBON DIOXIDE LEVEL 26 MMOL/L (20-31); CHLORIDE LEVEL 109 MMOL/L (98-107); CREATININE FOR GFR 0.45 MG/DL (0.55-1.30); GLOMERULAR FILTRATION RATE > 60.0 (>60); GLUCOSE, FASTING 91 MG/DL (60-100); MAGNESIUM LEVEL 1.6 MG/DL (1.8-2.4); POTASSIUM SERUM 4.5 MMOL/L (3.5-5.1); SODIUM LEVEL 140 MMOL/L (136-145)
[2023-12-03] MEDS: MAG SULF 1GM/100ML (MAG RUN) 1 GM in IV 1 EA IV SCH (07:40)
[2023-12-03] MEDS: ONDANSETRON 4MG 2ML VIAL IV PRN (09:54)
[2023-12-03 14:45] LABS: HEMATOCRIT 22.5 % (36.0-47.0); HEMOGLOBIN 8.2 g/dl (12.0-15.5)
[2023-12-03] MEDS ORDERED: MIRA33506 PO ×2 (16:18→16:54)
[2023-12-03] MEDS ORDERED: SENN-52 PO (16:18)
[2023-12-03] MEDS ORDERED: OXYC1TAB23 PO (16:18)
[2023-12-03] MEDS ORDERED: PERCOCET PO ×2 (16:18→16:52)
== END 2023-12-03 17:45 | disposition home or self-care (01) ==
LOC: M ED 08:36 → M ED INP 13:20 → M PED 12-02 15:10
PROVIDERS: ADMIT Internal Medicine; ATTEND Internal Medicine
DX: D57.00 Hb-SS disease with crisis, unspecified (principal); Z90.81 Acquired absence of spleen; M54.9 Dorsalgia, unspecified; J45.909 Unspecified asthma, uncomplicated; M51.86 Other intervertebral disc disorders, lumbar region; R59.0 Localized enlarged lymph nodes; N83.202 Unspecified ovarian cyst, left side; K59.00 Constipation, unspecified; Z90.49 Acquired absence of other specified parts of digestive tract; Z91.013 Allergy to seafood; Z91.018 Allergy to other foods; Z91.048 Other nonmedicinal substance allergy status; Z79.899 Other long term (current) drug therapy; Z79.2 Long term (current) use of antibiotics
CPT/HCPCS: 36415; 36430; 71046; 72131; 74176; 76856; 80048; 80053; 80076; 81001; 83010; 83615; 83690; 83735; 84703; 85014; 85018; 85025; 85046; 85652; 86140; 86850; 86900; 86901; 86920; 93976; 96361; 96372; 96374; 96375; 96376; 99285; J1170; J2405; J3010; J3475; P9016

== ENCOUNTER → 2023-12-24 | Outpatient (REF) ==
[~2023-12-24] MED LIST changes: +MIRA33506 PO; +OXYC1TAB23 PO; +POLY2.5S OD; +SENN-52 PO
== END ==
LOC: M EMP 12-23 11:21
PROVIDERS: ATTEND Family Medicine
DX: Z11.52 Encounter for screening for COVID-19 (principal)

== ENCOUNTER → 2023-12-25 | Outpatient (REF) | LOC: M EMP 07:47 | PROVIDERS: ATTEND Family Medicine | DX: Z11.52 Encounter for screening for COVID-19 (principal) ==

== ENCOUNTER 2024-01-30 06:53 | Outpatient (CLI) | payer BC ==
[~2024-01-30] VITALS: Ht 167.6 cm; Wt 84.1 kg
[~2024-01-30 06:53] MED LIST changes: +VITA100093 PO
[2024-01-30 07:00] VITALS: BP 122/61; O2SAT 99
[2024-01-30] MEDS ORDERED: NS 250 ML IV ONE (07:20)
[2024-01-30] MEDS: ACETAMINOPHEN TAB 650MG DOSE (2X325MG) PO ONE (07:29)
[2024-01-30] MEDS: diphenhydrAMINE 25MG CAP PO ONE (07:29)
[2024-01-30 07:57] VITALS: BP 128/64; TEMP 97; O2SAT 100
[2024-01-30 08:57] VITALS: BP 107/60; TEMP 97.4; O2SAT 96
[2024-01-30 09:21] VITALS: BP 115/59; O2SAT 96
== END 2024-01-30 09:25 | disposition home or self-care (01) ==
LOC: M INFU 06:53
PROVIDERS: ATTEND Specialist
DX: D57.20 Sickle-cell/Hb-C disease without crisis (principal); Z91.013 Allergy to seafood; Z91.018 Allergy to other foods; Z91.048 Other nonmedicinal substance allergy status
CPT/HCPCS: 36430; P9016

== ENCOUNTER 2024-04-20 14:20 | Inpatient (IN) | payer BC, OTHER ==
[2024-04-20] VITALS (11 sets, daily range): BP systolic 101–115; BP diastolic 51–62; TEMP 97.7–99.7; O2SAT 2–99
[~2024-04-20] VITALS: Ht 167.6 cm; Wt 84.3 kg
[2024-04-20] MEDS ORDERED: METO5TAB2 PO (14:43)
[2024-04-20] MEDS ORDERED: PYRI25TA2 (14:43)
[2024-04-20] MEDS ORDERED: UNIS25TA3 PO (14:43)
[2024-04-20 15:44] LABS: LIPASE 28 U/L (12-53)
[2024-04-20 15:47] LABS: ALBUMIN 3.5 G/DL (3.2-5.2); ALKALINE PHOSPHATASE 49 U/L (35-104); ALT/SGPT 34 U/L (7.0-40); AST/SGOT 43 U/L (<34); BILIRUBIN,DIRECT 1.1 MG/DL (<0.4); BILIRUBIN,TOTAL 4.2 MG/DL (0.3-1.2); BLOOD UREA NITROGEN 9 MG/DL (9-23); CARBON DIOXIDE LEVEL 18 MMOL/L (20-31); CHLORIDE LEVEL 110 MMOL/L (98-107); CREATININE FOR GFR 0.57 MG/DL (0.55-1.30); GLOMERULAR FILTRATION RATE > 60.0 (>60); GLUCOSE, FASTING 113 MG/DL (60-100); POTASSIUM SERUM 4.4 MMOL/L (3.5-5.1); SODIUM LEVEL 139 MMOL/L (136-145)
[2024-04-20 15:51] LABS: HEMOGLOBIN 5.9 g/dl (12.0-15.5)
[2024-04-20 16:02] LABS: HEMATOCRIT 15.4 % (36.0-47.0); MEAN CORPUSCULAR HEMOGLOBIN 34.7 pg (27.0-33.0); MEAN CORPUSCULAR VOLUME 90.6 fl (80.0-96.0)
[2024-04-20 16:03] LABS: MEAN CORPUSCULAR HGB CONC 38.3 g/dl (32.0-36.5)
[2024-04-20 16:04] LABS: PLATELET COUNT, AUTOMATED 504 10^3/uL (150-450); WHITE BLOOD COUNT 17.7 10^3/uL (4.0-10.0)
[2024-04-20 16:41] LABS: ATYPICAL LYMPH 1 % (0-5); EOSINOPHILS 7 % (0-3); LYMPHOCYTES 20 % (16-44); MONOCYTES 6 % (0-5); NEUTROPHILS 65 % (28-66)
[2024-04-20 16:42] LABS: SICKLE CELLS 4+
[2024-04-20 16:43] LABS: ANISOCYTOSIS 3+
[2024-04-20 16:45] LABS: SCHISTOCYTES 1+
[2024-04-20] MEDS: MORPHINE 2 MG/ML 1ML VIAL IV ONE (16:45)
[2024-04-20 16:46] LABS: GIANT PLATELETS 1+; PLATELET ESTIMATE INCREASED (NORMAL)
[2024-04-20] MEDS ORDERED: ACETAMINOPHEN 325 MG TAB PO PRN (17:15)
[2024-04-20 17:45] LABS: IRON (FE) 168 UG/DL (50-170); TOTAL IRON BINDING CAPACITY 240 UG/DL (250-425)
[2024-04-20] MEDS ORDERED: ONDANSETRON 4MG ORAL DISINTEGRATING TAB PO PRN (17:45)
[2024-04-20 17:47] LABS: FERRITIN 546.4 NG/ML (7.3-270.7); VITAMIN B12 LEVEL 239 PG/ML (211-911)
[2024-04-20] MEDS ORDERED: OXYC1TAB23 PO (17:57)
[2024-04-20] MEDS ORDERED: PREN1CHW4 PO (17:58)
[2024-04-20] MEDS ORDERED: D3 H10002 PO (18:02)
[2024-04-20] MEDS ORDERED: HOME MED LIST COMPLETE! XX SCH (18:05)
[2024-04-20 18:29] LABS: FOLATE > 24.0 NG/ML (>5.4)
[2024-04-20] MEDS ORDERED: METOCLOPRAMIDE 5 MG TAB PO PRN (18:35)
[2024-04-20 20:21] LABS: INR 1.11; PROTHROMBIN TIME 14.6 SECONDS (12.5-14.5)
[2024-04-20] MEDS: LIDOCAINE 5% (LIDODERM) PATCH TD SCH (21:12)
[2024-04-20] MEDS: MORPHINE 4 MG/ML 1ML VIAL IV ONE (21:12)
[2024-04-20] MEDS: NS (Normal Saline) 0.9% 1,000 ML IV SCH (21:53)
[2024-04-20] MEDS: MORPHINE 2 MG/ML 1ML VIAL IV PRN (22:19)
[2024-04-21] VITALS: BP 114/61; TEMP 97.7; O2SAT 94
[2024-04-21] MEDS: LIDOCAINE 5% (LIDODERM) PATCH TD ONE (00:49)
[2024-04-21 02:00] LABS: CK-MB VALUE MASS < 1.0 NG/ML (<3.6)
[2024-04-21 02:02] LABS: CPK CREATINE PHOSPHOKINASE 33 U/L (34-145); MB/CK RELATIVE INDEX 3.03 (< OR =4)
[2024-04-21 02:37] LABS: BASO # 0.1 10^3/uL (0.0-0.2); BASO % 0.6 % (0.0-1.0); EOS # 0.9 10^3/uL (0.0-0.5); EOS % 6.2 % (0.0-3.0); HEMATOCRIT 23.3 % (36.0-47.0); LYMPH # 3.5 10^3/uL (1.5-5.0); LYMPH % 23.8 % (24.0-44.0); MEAN CORPUSCULAR HEMOGLOBIN 32.2 pg (27.0-33.0); MEAN CORPUSCULAR HGB CONC 36.9 g/dl (32.0-36.5); MEAN CORPUSCULAR VOLUME 87.3 fl (80.0-96.0); MONO % 6.8 % (2.0-8.0); NEUTROPHILS # 9.2 10^3/uL (1.5-8.5); NEUTROPHILS % 62.1 % (36.0-66.0); PLATELET COUNT, AUTOMATED 516 10^3/uL (150-450); RED BLOOD COUNT 2.67 10^6/uL (4.00-5.40); WHITE BLOOD COUNT 14.8 10^3/uL (4.0-10.0)
[2024-04-21 02:43] LABS: HEMOGLOBIN 8.6 g/dl (12.0-15.5)
[2024-04-21] MEDS: MORPHINE 4 MG/ML 1ML VIAL IV PRN (03:36)
[2024-04-21 04:00] VITALS: BP 100/54; TEMP 98.1; O2SAT 95
[2024-04-21 05:57] LABS: HEMATOCRIT 23.8 % (36.0-47.0); HEMOGLOBIN 8.7 g/dl (12.0-15.5); MEAN CORPUSCULAR HEMOGLOBIN 31.8 pg (27.0-33.0); MEAN CORPUSCULAR VOLUME 86.9 fl (80.0-96.0); PLATELET COUNT, AUTOMATED 515 10^3/uL (150-450); RED BLOOD COUNT 2.74 10^6/uL (4.00-5.40); WHITE BLOOD COUNT 13.9 10^3/uL (4.0-10.0)
[2024-04-21 06:24] LABS: MEAN CORPUSCULAR HGB CONC 36.6 g/dl (32.0-36.5)
[2024-04-21 06:28] LABS: ALBUMIN 3.3 G/DL (3.2-5.2); ALKALINE PHOSPHATASE 47 U/L (35-104); ALT/SGPT 31 U/L (7.0-40); AST/SGOT 36 U/L (<34); BILIRUBIN,TOTAL 2.9 MG/DL (0.3-1.2); BLOOD UREA NITROGEN 6 MG/DL (9-23); CALCIUM LEVEL 9.5 MG/DL (8.5-10.1); CARBON DIOXIDE LEVEL 18 MMOL/L (20-31); CHLORIDE LEVEL 111 MMOL/L (98-107); CREATININE FOR GFR 0.46 MG/DL (0.55-1.30); GLOMERULAR FILTRATION RATE > 60.0 (>60); GLUCOSE, FASTING 95 MG/DL (60-100); POTASSIUM SERUM 4.9 MMOL/L (3.5-5.1); SODIUM LEVEL 138 MMOL/L (136-145); TOTAL PROTEIN 6.7 G/DL (5.7-8.2)
[2024-04-21] MEDS: HEPARIN SOD (PORCINE) 5000UNITS/ML 1ML VIAL/SYRINGE SQ SCH (06:33)
[2024-04-21] MEDS: FOLIC ACID 1MG TAB PO SCH (08:36)
[2024-04-21] MEDS: PRENATAL VITAMINS CHEWABLE TABLET PO SCH (08:36)
[2024-04-21 12:00] VITALS: BP 110/54; TEMP 97.7; O2SAT 95
[2024-04-21] MEDS: FLUZONE VACCINE TRIVALENT PF(2024-25) 0.5ML SYRINGE IM.IMMUN ONE (13:56)
[2024-04-21] MEDS: D5W/0.45% SODIUM CHLORIDE 1,000 ML IV SCH (16:31)
[2024-04-21 20:00] VITALS: BP 116/65; TEMP 97.7; O2SAT 94
[2024-04-22 04:40] VITALS: BP 94/48; TEMP 97.5; O2SAT 98
[2024-04-22 06:44] LABS: BASO # 0.1 10^3/uL (0.0-0.2); BASO % 0.6 % (0.0-1.0); EOS % 9.7 % (0.0-3.0); HEMATOCRIT 25.6 % (36.0-47.0); HEMOGLOBIN 9.3 g/dl (12.0-15.5); LYMPH # 2.6 10^3/uL (1.5-5.0); LYMPH % 24.6 % (24.0-44.0); MEAN CORPUSCULAR HEMOGLOBIN 32.4 pg (27.0-33.0); MEAN CORPUSCULAR HGB CONC 36.3 g/dl (32.0-36.5); MEAN CORPUSCULAR VOLUME 89.2 fl (80.0-96.0); MONO # 0.7 10^3/uL (0.0-0.8); MONO % 6.1 % (2.0-8.0); NEUTROPHILS # 6.2 10^3/uL (1.5-8.5); NEUTROPHILS % 58.5 % (36.0-66.0); PLATELET COUNT, AUTOMATED 514 10^3/uL (150-450); RED BLOOD COUNT 2.87 10^6/uL (4.00-5.40); WHITE BLOOD COUNT 10.6 10^3/uL (4.0-10.0)
[2024-04-22 07:05] LABS: BLOOD UREA NITROGEN 6 MG/DL (9-23); CALCIUM LEVEL 9.5 MG/DL (8.5-10.1); CARBON DIOXIDE LEVEL 19 MMOL/L (20-31); CHLORIDE LEVEL 110 MMOL/L (98-107); CREATININE FOR GFR 0.39 MG/DL (0.55-1.30); GLOMERULAR FILTRATION RATE > 60.0 (>60); GLUCOSE, FASTING 92 MG/DL (60-100); POTASSIUM SERUM 4.8 MMOL/L (3.5-5.1); SODIUM LEVEL 134 MMOL/L (136-145)
[2024-04-22] MEDS: FOLIC ACID 1MG TAB PO SCH (08:58)
[2024-04-22 10:17] VITALS: BP 111/65
[2024-04-22 12:00] VITALS: BP 109/63; TEMP 97.9; O2SAT 96
[2024-04-22] MEDS ORDERED: ACET32TAB PO (12:54)
[2024-04-22] MEDS ORDERED: FOLI1TAB11 PO (12:54)
== END 2024-04-22 14:20 | disposition home or self-care (01) | DRG 831 ==
LOC: M ED 14:20 → M ED INP 17:12 → M MSPAV 21:22
PROVIDERS: ADMIT Internal Medicine; ATTEND Student in an Organized Health Care Education/Training Program
PROC: 30233N1 Transfusion of Nonautologous Red Blood Cells into Peripheral Vein, Percutaneous Approach (ICD-10-PCS; principal; 2024-04-20)
DX: O99.011 Anemia complicating pregnancy, first trimester (principal); D57.00 Hb-SS disease with crisis, unspecified; Z3A.12 12 weeks gestation of pregnancy; O99.511 Diseases of the respiratory system complicating pregnancy, first trimester; J45.909 Unspecified asthma, uncomplicated; Z79.899 Other long term (current) drug therapy; Z91.018 Allergy to other foods; Z91.041 Radiographic dye allergy status; Z91.013 Allergy to seafood

== ENCOUNTER 2024-05-08 16:39 | Inpatient (IN) | payer OTHER, BC ==
[2024-05-08] VITALS (8 sets, daily range): BP systolic 99–117; BP diastolic 50–57; TEMP 97.2–98.3; O2SAT 96–98
[~2024-05-08] VITALS: Ht 167.6 cm; Wt 81.8 kg
[~2024-05-08 16:39] MED LIST changes: +ACET32TAB PO; +D3 H10002 PO; +METO5TAB2 PO; +PREN1CHW4 PO; +PYRI25TA2; +UNIS25TA3 PO
[2024-05-08] MEDS ORDERED: MAALOX 30 ML SUSP *UDC PO PRN (20:35)
[2024-05-08] MEDS ORDERED: MOM 30ML SUSPENSION UDC PO PRN (20:35)
[2024-05-08] MEDS: diphenhydrAMINE 25MG CAP PO ONE (20:35)
[2024-05-08] MEDS: NS (Normal Saline) 0.9% 1,000 ML IV SCH (20:35)
[2024-05-08] MEDS ORDERED: ECOT81TA5 PO (20:39)
[2024-05-08] MEDS ORDERED: FAMO20TA PO (20:39)
[2024-05-08] MEDS ORDERED: PYRI25TA2 PO (20:39)
[2024-05-08] MEDS ORDERED: HOME MED LIST COMPLETE! XX SCH (20:40)
[2024-05-08] MEDS: DOCUSATE SODIUM 100MG CAPSULE PO SCH (21:00)
[2024-05-08] MEDS: NS (Normal Saline) 0.9% 1,000 ML IV ONE (23:25)
[2024-05-08] MEDS: MORPHINE 2 MG/ML 1ML VIAL IV ONE (23:48)
[2024-05-09] MEDS: MORPHINE 2 MG/ML 1ML VIAL IV ONE (01:05)
[2024-05-09] MEDS: NS (Normal Saline) 0.9% 1,000 ML IV SCH (04:00)
[2024-05-09] MEDS ORDERED: METOCLOPRAMIDE 5 MG TAB PO PRN (04:00)
[2024-05-09 07:12] LABS: HEMATOCRIT 21.2 % (36.0-47.0); HEMOGLOBIN 7.5 g/dl (12.0-15.5); MEAN CORPUSCULAR HEMOGLOBIN 31.9 pg (27.0-33.0); MEAN CORPUSCULAR HGB CONC 35.4 g/dl (32.0-36.5); MEAN CORPUSCULAR VOLUME 90.2 fl (80.0-96.0); PLATELET COUNT, AUTOMATED 597 10^3/uL (150-450); RED BLOOD COUNT 2.35 10^6/uL (4.00-5.40); WHITE BLOOD COUNT 16.8 10^3/uL (4.0-10.0)
[2024-05-09 07:40] LABS: BLOOD UREA NITROGEN 6 MG/DL (9-23); CALCIUM LEVEL 9.4 MG/DL (8.5-10.1); CARBON DIOXIDE LEVEL 18 MMOL/L (20-31); CHLORIDE LEVEL 113 MMOL/L (98-107); CREATININE FOR GFR 0.47 MG/DL (0.55-1.30); GLOMERULAR FILTRATION RATE > 60.0 (>60); GLUCOSE, FASTING 90 MG/DL (60-100); MAGNESIUM LEVEL 1.6 MG/DL (1.8-2.4); POTASSIUM SERUM 4.7 MMOL/L (3.5-5.1); SODIUM LEVEL 139 MMOL/L (136-145)
[2024-05-09 07:53] LABS: PROCALCITONIN <0.04 ng/ml
[2024-05-09] MEDS: PANTOPRAZOLE 40MG VIAL IV SCH (08:57)
[2024-05-09] MEDS: ASPIRIN 81MG ENTERIC TABLET PO SCH (08:57)
[2024-05-09] MEDS: FOLIC ACID 1MG TAB PO SCH (08:57)
[2024-05-09] MEDS: PRENATAL VITAMINS CHEWABLE TABLET PO SCH (08:58)
[2024-05-09] MEDS: ACETAMINOPHEN 325 MG TAB PO PRN (09:01)
[2024-05-09] MEDS ORDERED: diphenhydrAMINE 25MG CAP PO PRN (18:55)
[2024-05-09] MEDS ORDERED: ACETAMINOPHEN 325 MG TAB PO PRN (18:55)
[2024-05-09 19:31] VITALS: BP 114/58; TEMP 98.2; O2SAT 99
[2024-05-09 19:46] VITALS: BP 103/50; TEMP 98; O2SAT 97
[2024-05-09 20:30] VITALS: BP 125/65; TEMP 98.1; O2SAT 100
[2024-05-09] MEDS: MAGNESIUM OXIDE 400MG TAB (MAG-OX) PO SCH (20:34)
[2024-05-09 21:30] VITALS: BP 96/54; TEMP 97.8; O2SAT 98
[2024-05-10 00:50] LABS: HEMATOCRIT 23.8 % (36.0-47.0); HEMOGLOBIN 8.4 g/dl (12.0-15.5)
[2024-05-10] MEDS: ZINC OXIDE 30.6% CREAM 92GM TUBE (SECURA EPC) TOP SCH (01:50)
[2024-05-10 03:40] VITALS: BP 117/57; TEMP 97.4; O2SAT 97
[2024-05-10 07:03] LABS: HEMATOCRIT 24.3 % (36.0-47.0); HEMOGLOBIN 8.5 g/dl (12.0-15.5); MEAN CORPUSCULAR HEMOGLOBIN 30.7 pg (27.0-33.0); MEAN CORPUSCULAR VOLUME 87.7 fl (80.0-96.0); PLATELET COUNT, AUTOMATED 590 10^3/uL (150-450); RED BLOOD COUNT 2.77 10^6/uL (4.00-5.40); WHITE BLOOD COUNT 16.4 10^3/uL (4.0-10.0)
[2024-05-10 07:30] LABS: ALBUMIN 3.1 G/DL (3.2-5.2); BLOOD UREA NITROGEN 5 MG/DL (9-23); CALCIUM LEVEL 9.3 MG/DL (8.5-10.1); CARBON DIOXIDE LEVEL 17 MMOL/L (20-31); CHLORIDE LEVEL 112 MMOL/L (98-107); GLOMERULAR FILTRATION RATE > 60.0 (>60); GLUCOSE, FASTING 88 MG/DL (60-100); MAGNESIUM LEVEL 1.6 MG/DL (1.8-2.4); PHOSPHORUS LEVEL 4.8 MG/DL (2.5-4.9); POTASSIUM SERUM 4.5 MMOL/L (3.5-5.1); SODIUM LEVEL 138 MMOL/L (136-145)
[2024-05-10 07:37] VITALS: BP 102/59; TEMP 97.2; O2SAT 98
== END 2024-05-10 10:46 | disposition home or self-care (01) | DRG 831 ==
LOC: M ED 16:39 → M ED INP 20:31 → UNDODISIN 05-10 04:16 → M PCU 05-10 04:52
PROVIDERS: ADMIT Student in an Organized Health Care Education/Training Program; ATTEND Family Medicine
PROC: 30233N1 Transfusion of Nonautologous Red Blood Cells into Peripheral Vein, Percutaneous Approach (ICD-10-PCS; principal; 2024-05-08)
DX: O99.012 Anemia complicating pregnancy, second trimester (principal); D57.09 Hb-SS disease with crisis with other specified complication; Z3A.14 14 weeks gestation of pregnancy

== ENCOUNTER → 2024-06-15 | Outpatient (CLI) | payer OTHER, BC ==
[~2024-06-15] VITALS: Ht 157.5 cm; Wt 84.5 kg
[~2024-06-15] MED LIST changes: +ECOT81TA5 PO; +FAMO20TA PO; +PYRI25TA2 PO
[2024-06-15 21:42] VITALS: BP 117/69
[2024-06-15 21:43] VITALS: O2SAT 99
[2024-06-15] MEDS: MORPHINE 4 MG/ML 1ML VIAL IV ONE (21:43)
[2024-06-15] MEDS: LR 1,000 ML IV SCH (22:00)
[2024-06-15 22:14] VITALS: BP 104/55
[2024-06-15 22:44] VITALS: BP 94/50
== END ==
LOC: M LDO 21:09
PROVIDERS: ATTEND Advanced Practice Midwife
DX: O99.112 Other diseases of the blood and blood-forming organs and certain disorders involving the immune mechanism complicating pregnancy, second trimester (principal); Z3A.20 20 weeks gestation of pregnancy; D57.219 Sickle-cell/Hb-C disease with crisis, unspecified

== ENCOUNTER 2024-08-21 09:38 | Inpatient (IN) | payer OTHER, BC ==
[2024-08-21] VITALS (15 sets, daily range): BP systolic 105–124; BP diastolic 51–71; TEMP 97.4–98.1; O2SAT 94–100
[~2024-08-21] VITALS: Ht 165.1 cm; Wt 93.5 kg
[~2024-08-21 09:38] MED LIST changes: +ALBU2.5V10 INH; +PROA1AER2 INH
[2024-08-21] MEDS ORDERED: HOME MED LIST COMPLETE! XX SCH (10:00)
[2024-08-21 11:06] LABS: HEMATOCRIT 21.5 % (36.0-47.0); HEMOGLOBIN 7.6 g/dl (12.0-15.5); MEAN CORPUSCULAR HEMOGLOBIN 32.6 pg (27.0-33.0); MEAN CORPUSCULAR HGB CONC 35.3 g/dl (32.0-36.5); MEAN CORPUSCULAR VOLUME 92.3 fl (80.0-96.0); PLATELET COUNT, AUTOMATED 587 10^3/uL (150-450); RED BLOOD COUNT 2.33 10^6/uL (4.00-5.40); WHITE BLOOD COUNT 21.3 10^3/uL (4.0-10.0)
[2024-08-21 11:10] LABS: KETONE, URINE AUTO RFX NEGATIVE (NEGATIVE); LEUKOCYTE ESTERASE UR AUTO RFX NEGATIVE (NEGATIVE); MUCUS, URINE RFX SMALL (NEGATIVE); NITRITE, URINE AUTO RFX NEGATIVE (NEGATIVE); RBC, URINE AUTO RFX 2 /HPF (0-3); SQUAM EPITHELIAL CELL UR AURFX 3 /HPF (0-6); WBC, URINE AUTO RFX 3 /HPF (0-3)
[2024-08-21 11:36] LABS: ALBUMIN 2.9 G/DL (3.2-5.2); ALKALINE PHOSPHATASE 70 U/L (35-104); ALT/SGPT 18 U/L (7.0-40); AST/SGOT 23 U/L (<34); BILIRUBIN,TOTAL 3.2 MG/DL (0.3-1.2); BLOOD UREA NITROGEN 8 MG/DL (9-23); CALCIUM LEVEL 9.2 MG/DL (8.5-10.1); CARBON DIOXIDE LEVEL 19 MMOL/L (20-31); CHLORIDE LEVEL 106 MMOL/L (98-107); CREATININE FOR GFR 0.53 MG/DL (0.55-1.30); GLOMERULAR FILTRATION RATE > 90.0 (>60); GLUCOSE, FASTING 89 MG/DL (60-100); POTASSIUM SERUM 4.5 MMOL/L (3.5-5.1); SODIUM LEVEL 138 MMOL/L (136-145); TOTAL PROTEIN 6.8 G/DL (5.7-8.2)
[2024-08-21 11:43] LABS: EOSINOPHILS 4 % (0-3); LYMPHOCYTES 17 % (16-44); MONOCYTES 2 % (0-5); NEUTROPHILS 77 % (28-66)
[2024-08-21 11:44] LABS: ANISOCYTOSIS 1+; PLATELET ESTIMATE INCREASED (NORMAL)
[2024-08-21 11:46] LABS: SICKLE CELLS 3+
[2024-08-21 11:48] LABS: POLYCHROMASIA 1+
[2024-08-21] MEDS: LR 1,000 ML IV SCH (12:04)
[2024-08-21] MEDS: MORPHINE 4 MG/ML 1ML VIAL IV PRN (12:05)
[2024-08-21 15:02] LABS: LDH LACTATE DEHYDROGENASE 362 U/L (120-246)
[2024-08-21 15:03] LABS: C REACTIVE PROTEIN QUANTITATIV < 0.50 MG/DL (<1.0)
[2024-08-21 15:11] LABS: PROCALCITONIN 0.06 ng/ml
[2024-08-21 15:19] LABS: ERYTHROCYTE SEDIMENTATION RATE 14 mm/hr (0-20)
[2024-08-21] MEDS ORDERED: IPRATROPIUM 0.5MG/ALBUTEROL 2.5MG INH SOL UD 3ML NEB PRN (16:10)
[2024-08-21] MEDS ORDERED: ALBUTEROL 90 MCG/ACT 8GM HFA INHALER INH PRN (16:10)
[2024-08-21 16:32] LABS: HEPATITIS B SURFACE ANTIGEN NEGATIVE (NEGATIVE)
[2024-08-21 16:52] LABS: HEPATITIS C VIRUS ABY INDEX 0.03 INDEX (<0.8)
[2024-08-21 16:53] LABS: HEPATITIS B CORE ANTIBODY IGM NEGATIVE (NEGATIVE)
[2024-08-21 18:07] LABS: PERCENT SATURATION 83.1 % (13.2-45.0)
[2024-08-21 18:10] LABS: FERRITIN 665.4 NG/ML (7.3-270.7)
[2024-08-21] MEDS: LR 1,000 ML IV ONE (18:20)
[2024-08-21] MEDS: ASPIRIN 81MG ENTERIC TABLET PO SCH (19:51)
[2024-08-21] MEDS: IPRATROPIUM 0.5MG/ALBUTEROL 2.5MG INH SOL UD 3ML NEB SCH (20:47)
[2024-08-22 04:00] VITALS: BP 114/63; TEMP 97.3; O2SAT 95
[2024-08-22 06:38] LABS: BASO # 0.1 10^3/uL (0.0-0.2); BASO % 0.5 % (0.0-1.0); EOS # 1.1 10^3/uL (0.0-0.5); HEMATOCRIT 23.3 % (36.0-47.0); HEMOGLOBIN 8.2 g/dl (12.0-15.5); LYMPH # 2.8 10^3/uL (1.5-5.0); MEAN CORPUSCULAR HEMOGLOBIN 31.3 pg (27.0-33.0); MEAN CORPUSCULAR HGB CONC 35.2 g/dl (32.0-36.5); MEAN CORPUSCULAR VOLUME 88.9 fl (80.0-96.0); MONO # 1.1 10^3/uL (0.0-0.8); NEUTROPHILS # 10.2 10^3/uL (1.5-8.5); NEUTROPHILS % 66.6 % (36.0-66.0); PLATELET COUNT, AUTOMATED 488 10^3/uL (150-450); RED BLOOD COUNT 2.62 10^6/uL (4.00-5.40); WHITE BLOOD COUNT 15.3 10^3/uL (4.0-10.0)
[2024-08-22 07:01] LABS: ALBUMIN 2.5 G/DL (3.2-5.2); ALKALINE PHOSPHATASE 63 U/L (35-104); ALT/SGPT 16 U/L (7.0-40); AST/SGOT 20 U/L (<34); BILIRUBIN,DIRECT 0.9 MG/DL (<0.4); BILIRUBIN,TOTAL 2.6 MG/DL (0.3-1.2); BLOOD UREA NITROGEN 6 MG/DL (9-23); CARBON DIOXIDE LEVEL 18 MMOL/L (20-31); CHLORIDE LEVEL 110 MMOL/L (98-107); CREATININE FOR GFR 0.39 MG/DL (0.55-1.30); GLOMERULAR FILTRATION RATE > 90.0 (>60); GLUCOSE, FASTING 97 MG/DL (60-100); POTASSIUM SERUM 4.6 MMOL/L (3.5-5.1); SODIUM LEVEL 137 MMOL/L (136-145); TOTAL PROTEIN 5.8 G/DL (5.7-8.2)
[2024-08-22] MEDS ORDERED: NALOXONE INJ 0.4MG/1ML VIAL IV PRN (08:20)
[2024-08-22] MEDS: SODIUM BICARBONATE 325 MG TAB PO ONE (09:03)
[2024-08-22] MEDS: VITAMIN D 1,000 INTERNATIONAL UNITS TABLET PO SCH (09:03)
[2024-08-22] MEDS: FOLIC ACID 1MG TAB PO SCH (09:03)
[2024-08-22] MEDS: ACETAMINOPHEN 500 MG TAB PO ONE (09:04)
[2024-08-22] MEDS: MORPHINE 2 MG/ML 1ML VIAL IV ONE (09:04)
[2024-08-22] MEDS: SODIUM BICARBONATE 150 MEQ in D5W 1,000 ML IV SCH (10:09)
[2024-08-22 12:00] VITALS: BP 117/67; TEMP 98.1; O2SAT 96
[2024-08-22] MEDS: PRENATAL VITAMINS CHEWABLE TABLET PO SCH (16:04)
[2024-08-22 17:18] LABS: IONIZED CALCIUM 4.6 MG/DL (4.5-5.3)
[2024-08-22 17:48] LABS: BLOOD UREA NITROGEN 6 MG/DL (9-23); CALCIUM LEVEL 8.5 MG/DL (8.5-10.1); CARBON DIOXIDE LEVEL 22 MMOL/L (20-31); CHLORIDE LEVEL 109 MMOL/L (98-107); CREATININE FOR GFR 0.44 MG/DL (0.55-1.30); GLOMERULAR FILTRATION RATE > 90.0 (>60); GLUCOSE, FASTING 107 MG/DL (60-100); MAGNESIUM LEVEL 1.4 MG/DL (1.8-2.4); POTASSIUM SERUM 4.2 MMOL/L (3.5-5.1); SODIUM LEVEL 138 MMOL/L (136-145)
[2024-08-22] MEDS: ACETAMINOPHEN 500 MG TAB PO SCH (18:00)
[2024-08-22] MEDS: MAG SULF 1GM/100ML (MAG RUN) 1 GM in IV 1 EA IV SCH (18:11)
[2024-08-22 19:36] VITALS: BP 113/67; TEMP 97.9; O2SAT 99
[2024-08-22] MEDS: SODIUM BICARBONATE 325 MG TAB PO SCH (20:00)
[2024-08-22] MEDS: D5W/0.45% SODIUM CHLORIDE 1,000 ML IV SCH (20:24)
[2024-08-23 04:00] VITALS: BP 111/63; TEMP 98.1; O2SAT 99
[2024-08-23 07:17] LABS: BASO # 0.1 10^3/uL (0.0-0.2); BASO % 0.4 % (0.0-1.0); EOS # 1.2 10^3/uL (0.0-0.5); EOS % 8.5 % (0.0-3.0); HEMATOCRIT 23.4 % (36.0-47.0); HEMOGLOBIN 8.1 g/dl (12.0-15.5); LYMPH # 2.4 10^3/uL (1.5-5.0); LYMPH % 17.7 % (24.0-44.0); MEAN CORPUSCULAR HEMOGLOBIN 30.8 pg (27.0-33.0); MEAN CORPUSCULAR HGB CONC 34.6 g/dl (32.0-36.5); MONO % 6.9 % (2.0-8.0); NEUTROPHILS # 9.1 10^3/uL (1.5-8.5); PLATELET COUNT, AUTOMATED 507 10^3/uL (150-450); RED BLOOD COUNT 2.63 10^6/uL (4.00-5.40); WHITE BLOOD COUNT 13.8 10^3/uL (4.0-10.0)
[2024-08-23 07:39] LABS: ALBUMIN 2.5 G/DL (3.2-5.2); ALKALINE PHOSPHATASE 61 U/L (35-104); ALT/SGPT 19 U/L (7.0-40); AST/SGOT 25 U/L (<34); BLOOD UREA NITROGEN 5 MG/DL (9-23); CALCIUM LEVEL 8.9 MG/DL (8.5-10.1); CARBON DIOXIDE LEVEL 20 MMOL/L (20-31); CHLORIDE LEVEL 111 MMOL/L (98-107); GLOMERULAR FILTRATION RATE > 90.0 (>60); GLUCOSE, FASTING 89 MG/DL (60-100); MAGNESIUM LEVEL 1.8 MG/DL (1.8-2.4); POTASSIUM SERUM 4.7 MMOL/L (3.5-5.1); SODIUM LEVEL 140 MMOL/L (136-145); TOTAL PROTEIN 5.8 G/DL (5.7-8.2)
[2024-08-23] MEDS: MORPHINE 2 MG/ML 1ML VIAL IV ONE ×3 (08:23→12:57)
[2024-08-23] MEDS: SODIUM BICARBONATE 325 MG TAB PO ONE ×2 (08:24→12:57)
[2024-08-23 12:00] VITALS: BP 111/63; TEMP 98.1; O2SAT 95
[2024-08-23] MEDS: PERCOCET 5MG/325MG TAB PO PRN (15:57)
[2024-08-23 20:00] VITALS: BP 112/58; TEMP 97.9; O2SAT 94
[2024-08-24] VITALS (7 sets, daily range): BP systolic 96–113; BP diastolic 49–67; TEMP 97.8–98.2; O2SAT 94–95
[2024-08-24 06:35] LABS: BASO # 0.1 10^3/uL (0.0-0.2); BASO % 0.4 % (0.0-1.0); EOS # 1.2 10^3/uL (0.0-0.5); EOS % 8.8 % (0.0-3.0); HEMATOCRIT 23.8 % (36.0-47.0); HEMOGLOBIN 8.3 g/dl (12.0-15.5); LYMPH # 2.2 10^3/uL (1.5-5.0); LYMPH % 16.4 % (24.0-44.0); MEAN CORPUSCULAR HEMOGLOBIN 31.9 pg (27.0-33.0); MEAN CORPUSCULAR HGB CONC 34.9 g/dl (32.0-36.5); MEAN CORPUSCULAR VOLUME 91.5 fl (80.0-96.0); MONO % 7.2 % (2.0-8.0); NEUTROPHILS # 9.1 10^3/uL (1.5-8.5); NEUTROPHILS % 66.7 % (36.0-66.0); PLATELET COUNT, AUTOMATED 490 10^3/uL (150-450); WHITE BLOOD COUNT 13.6 10^3/uL (4.0-10.0)
[2024-08-24 07:11] LABS: BLOOD UREA NITROGEN < 5 MG/DL (9-23); CALCIUM LEVEL 8.8 MG/DL (8.5-10.1); CARBON DIOXIDE LEVEL 20 MMOL/L (20-31); CHLORIDE LEVEL 108 MMOL/L (98-107); CREATININE FOR GFR 0.38 MG/DL (0.55-1.30); GLOMERULAR FILTRATION RATE > 90.0 (>60); GLUCOSE, FASTING 94 MG/DL (60-100); POTASSIUM SERUM 4.9 MMOL/L (3.5-5.1); SODIUM LEVEL 137 MMOL/L (136-145)
[2024-08-24] MEDS: MORPHINE 2 MG/ML 1ML VIAL IV ONE (07:58)
[2024-08-24] MEDS ORDERED: ACETAMINOPHEN 325 MG TAB PO PRN (13:35)
[2024-08-25 04:00] VITALS: BP 111/65; TEMP 97.9; O2SAT 93
[2024-08-25 06:08] LABS: BASO % 0.3 % (0.0-1.0); EOS # 1.3 10^3/uL (0.0-0.5); EOS % 9.2 % (0.0-3.0); HEMATOCRIT 25.1 % (36.0-47.0); HEMOGLOBIN 8.7 g/dl (12.0-15.5); LYMPH # 2.2 10^3/uL (1.5-5.0); MEAN CORPUSCULAR HEMOGLOBIN 31.5 pg (27.0-33.0); MEAN CORPUSCULAR HGB CONC 34.7 g/dl (32.0-36.5); MEAN CORPUSCULAR VOLUME 90.9 fl (80.0-96.0); MONO % 7.3 % (2.0-8.0); NEUTROPHILS # 9.3 10^3/uL (1.5-8.5); NEUTROPHILS % 66.8 % (36.0-66.0); PLATELET COUNT, AUTOMATED 445 10^3/uL (150-450); RED BLOOD COUNT 2.76 10^6/uL (4.00-5.40); WHITE BLOOD COUNT 13.9 10^3/uL (4.0-10.0)
[2024-08-25 06:30] LABS: BLOOD UREA NITROGEN 7 MG/DL (9-23); CALCIUM LEVEL 9.2 MG/DL (8.5-10.1); CARBON DIOXIDE LEVEL 18 MMOL/L (20-31); CHLORIDE LEVEL 110 MMOL/L (98-107); CREATININE FOR GFR 0.37 MG/DL (0.55-1.30); GLOMERULAR FILTRATION RATE > 90.0 (>60); GLUCOSE, FASTING 96 MG/DL (60-100); POTASSIUM SERUM 4.8 MMOL/L (3.5-5.1); SODIUM LEVEL 139 MMOL/L (136-145)
[2024-08-25 09:11] LABS: LDH LACTATE DEHYDROGENASE 294 U/L (120-246)
[2024-08-25 12:00] VITALS: BP 111/68; TEMP 97.6; O2SAT 96
== END 2024-08-25 18:30 | disposition home or self-care (01) | DRG 831 ==
LOC: M LDO 09:38 → M MS5PR 15:37 → M LDO 17:15 → M MS5PR 17:15 → M LDO 08-25 18:30 → M MS5PR 08-25 18:30
PROVIDERS: ADMIT Advanced Practice Midwife; ATTEND Advanced Practice Midwife
PROC: 30233N1 Transfusion of Nonautologous Red Blood Cells into Peripheral Vein, Percutaneous Approach (ICD-10-PCS; principal; 2024-08-21)
DX: O99.013 Anemia complicating pregnancy, third trimester (principal); D57.09 Hb-SS disease with crisis with other specified complication; E87.20 Acidosis, unspecified; Z3A.29 29 weeks gestation of pregnancy; J45.20 Mild intermittent asthma, uncomplicated; O99.513 Diseases of the respiratory system complicating pregnancy, third trimester; Z91.013 Allergy to seafood; Z91.018 Allergy to other foods; Z79.82 Long term (current) use of aspirin; Z79.899 Other long term (current) drug therapy; Z86.16 Personal history of COVID-19; Z90.81 Acquired absence of spleen; O99.283 Endocrine, nutritional and metabolic diseases complicating pregnancy, third trimester

== ENCOUNTER 2024-09-10 16:04 | Outpatient (CLI) | payer OTHER, BC ==
[~2024-09-10] VITALS: Ht 167.6 cm; Wt 93.9 kg
[2024-09-10 16:18] VITALS: BP 142/61
== END 2024-09-10 19:14 | disposition home or self-care (01) ==
LOC: M LDO 16:04
PROVIDERS: ATTEND Obstetrics & Gynecology
DX: O99.013 Anemia complicating pregnancy, third trimester (principal); D57.20 Sickle-cell/Hb-C disease without crisis; Z3A.32 32 weeks gestation of pregnancy
CPT/HCPCS: 59025; 76815; 76819; 76820; G0463

== ENCOUNTER 2024-12-13 15:07 | Inpatient (IN) | payer OTHER ==
[~2024-12-13] VITALS: Ht 165.1 cm; Wt 85.7 kg
[~2024-12-13 15:07] MED LIST changes: +IBUP80TA PO; +SENN-225 PO; -SENO8.6T5 PO
[2024-12-13] MEDS: MORPHINE 4 MG/ML 1 ML VIAL IV ONE (20:37)
[2024-12-13] MEDS: NS (Normal Saline) 0.9% 1,000 ML IV ONE ×2 (20:37→21:38)
[2024-12-13 20:47] LABS: PLATELET COUNT, AUTOMATED 394 10^3/uL (150-450)
[2024-12-13 21:06] LABS: BASOPHILS 1 % (0-1); EOSINOPHILS 6 % (0-3); LYMPHOCYTES 25 % (16-44); MONOCYTES 2 % (0-5); NEUTROPHILS 64 % (28-66)
[2024-12-13 21:09] LABS: PLATELET ESTIMATE NORMAL (NORMAL)
[2024-12-13 21:15] LABS: ALT/SGPT 38 U/L (7.0-40); AST/SGOT 61 U/L (<34); CALCIUM LEVEL 8.6 MG/DL (8.5-10.1); CARBON DIOXIDE LEVEL 27 MMOL/L (20-31); CHLORIDE LEVEL 108 MMOL/L (98-107); CREATININE FOR GFR 0.53 MG/DL (0.55-1.30); GLOMERULAR FILTRATION RATE > 90.0 (>60); POTASSIUM SERUM 4.3 MMOL/L (3.5-5.1); SODIUM LEVEL 144 MMOL/L (136-145)
[2024-12-13] MEDS ORDERED: HOME MED LIST COMPLETE! XX SCH (23:30)
[2024-12-14] MEDS ORDERED: ISOVUE-370 76% 100 ML VIAL As Ordered ONE (01:25)
[2024-12-14] MEDS ORDERED: MOM 30 ML SUSPENSION UDC PO PRN (04:05)
[2024-12-14] MEDS ORDERED: ONDANSETRON 4MG 2ML VIAL IV PRN (04:05)
[2024-12-14] MEDS ORDERED: ACETAMINOPHEN 325 MG TAB PO PRN (04:05)
[2024-12-14] MEDS ORDERED: MAALOX 30 ML SUSP *UDC PO PRN (04:05)
[2024-12-14] MEDS: HYDROmorphone 2 MG TAB PO PRN (06:55)
[2024-12-14] MEDS: NS 0.45% 1,000 ML IV SCH ×2 (08:34→16:06)
[2024-12-14] MEDS: MORPHINE 4 MG/ML 1 ML VIAL IV PRN (08:42)
[2024-12-14] MEDS: DOCUSATE SODIUM 100 MG CAPSULE PO SCH (10:04)
[2024-12-14] MEDS: HYDROXYUREA 500 MG CAP PO SCH (10:04)
[2024-12-14] MEDS: MORPHINE 2 MG/ML 1 ML VIAL IV ONE (10:06)
[2024-12-14 10:20] LABS: PLATELET COUNT, AUTOMATED 361 10^3/uL (150-450)
[2024-12-14 10:49] LABS: CALCIUM LEVEL 8.1 MG/DL (8.5-10.1); CARBON DIOXIDE LEVEL 26 MMOL/L (20-31); CHLORIDE LEVEL 109 MMOL/L (98-107); CREATININE FOR GFR 0.43 MG/DL (0.55-1.30); GLOMERULAR FILTRATION RATE > 90.0 (>60); POTASSIUM SERUM 4.0 MMOL/L (3.5-5.1); SODIUM LEVEL 144 MMOL/L (136-145)
[2024-12-14 12:05] VITALS: BP 126/76; TEMP 97.7; O2SAT 96
[2024-12-14] MEDS: MORPHINE 2 MG/ML 1 ML VIAL IV PRN (12:14)
[2024-12-14 12:20] VITALS: BP 110/55; TEMP 97.1; O2SAT 98
[2024-12-14] MEDS: ACETAMINOPHEN 325 MG TAB PO ONE (13:55)
[2024-12-14 16:24] VITALS: BP 137/88; TEMP 97.9; O2SAT 97
[2024-12-14 20:20] VITALS: BP 115/76; TEMP 97.9; O2SAT 96
[2024-12-14 22:00] VITALS: O2SAT 96
[2024-12-15 04:07] VITALS: BP 124/66; TEMP 98.2; O2SAT 98
[2024-12-15 06:41] LABS: PLATELET COUNT, AUTOMATED 389 10^3/uL (150-450)
[2024-12-15 07:08] LABS: ALT/SGPT 33 U/L (7.0-40); AST/SGOT 46 U/L (<34); CALCIUM LEVEL 8.4 MG/DL (8.5-10.1); CARBON DIOXIDE LEVEL 25 MMOL/L (20-31); CHLORIDE LEVEL 108 MMOL/L (98-107); CREATININE FOR GFR 0.43 MG/DL (0.55-1.30); GLOMERULAR FILTRATION RATE > 90.0 (>60); MAGNESIUM LEVEL 1.6 MG/DL (1.8-2.4); POTASSIUM SERUM 4.2 MMOL/L (3.5-5.1); SODIUM LEVEL 142 MMOL/L (136-145)
[2024-12-15 11:41] VITALS: BP 119/67; TEMP 97.5; O2SAT 90
[2024-12-15] MEDS ORDERED: MAG100TA PO (15:09)
[2024-12-15] MEDS ORDERED: MAGN400T2 PO (15:23)
[2024-12-15] MEDS ORDERED: OXYC10TA12 PO (15:24)
== END 2024-12-15 15:56 | disposition home or self-care (01) | DRG 812 ==
LOC: M ED 15:07 → M ED INP 15:08 → OBSVTOIN 12-14 10:23 → M MSPAV 12-14 15:24
PROVIDERS: ADMIT Student in an Organized Health Care Education/Training Program; ATTEND Student in an Organized Health Care Education/Training Program
PROC: 30233N1 Transfusion of Nonautologous Red Blood Cells into Peripheral Vein, Percutaneous Approach (ICD-10-PCS; principal; 2024-12-14)
DX: D57.00 Hb-SS disease with crisis, unspecified (principal); J45.909 Unspecified asthma, uncomplicated; E78.00 Pure hypercholesterolemia, unspecified; R74.01 Elevation of levels of liver transaminase levels; E80.6 Other disorders of bilirubin metabolism; E88.09 Other disorders of plasma-protein metabolism, not elsewhere classified; M54.9 Dorsalgia, unspecified; E87.8 Other disorders of electrolyte and fluid balance, not elsewhere classified; Z90.49 Acquired absence of other specified parts of digestive tract; Z91.018 Allergy to other foods; Z91.013 Allergy to seafood; Z91.048 Other nonmedicinal substance allergy status

== ENCOUNTER 2024-12-21 12:24 | Observation (INO) | payer OTHER ==
[~2024-12-21] VITALS: Ht 180.3 cm; Wt 85.7 kg
[~2024-12-21 12:24] MED LIST changes: +MAG100TA PO; +OXYC10TA12 PO
[2024-12-21 15:42] LABS: BASO # 0.1 10^3/uL (0.0-0.2); BASO % 0.9 % (0.0-1.0); EOS # 1.4 10^3/uL (0.0-0.5); EOS % 9.4 % (0.0-3.0); LYMPH # 4.4 10^3/uL (1.5-5.0); LYMPH % 29.2 % (24.0-44.0); MONO # 1.0 10^3/uL (0.0-0.8); MONO % 6.7 % (2.0-8.0); NEUTROPHILS # 8.0 10^3/uL (1.5-8.5); NEUTROPHILS % 53.5 % (36.0-66.0); PLATELET COUNT, AUTOMATED 539 10^3/uL (150-450)
[2024-12-21 15:57] LABS: CK-MB VALUE MASS < 1.0 NG/ML (<3.6)
[2024-12-21 15:59] LABS: CALCIUM LEVEL 9.0 MG/DL (8.5-10.1); CARBON DIOXIDE LEVEL 25 MMOL/L (20-31); CHLORIDE LEVEL 107 MMOL/L (98-107); CPK CREATINE PHOSPHOKINASE 54 U/L (34-145); CREATININE FOR GFR 0.55 MG/DL (0.55-1.30); GLOMERULAR FILTRATION RATE > 90.0 (>60); POTASSIUM SERUM 4.3 MMOL/L (3.5-5.1); SODIUM LEVEL 142 MMOL/L (136-145)
[2024-12-21] MEDS: NS (Normal Saline) 0.9% 1,000 ML IV ONE (16:00)
[2024-12-21] MEDS: KETOROLAC 30 MG/ML 1 ML VIAL IV ONE (16:01)
[2024-12-21 16:04] LABS: HCG, SERUM QUALITATIVE NEGATIVE (NEGATIVE)
[2024-12-21] MEDS: MORPHINE 2 MG/ML 1 ML VIAL IV ONE (17:21)
[2024-12-21 17:39] LABS: ALT/SGPT 31 U/L (7.0-40); AST/SGOT 46 U/L (<34)
[2024-12-21] MEDS ORDERED: MAGN1TAB26 PO (19:05)
[2024-12-21] MEDS ORDERED: OXYC10TA12 PO (19:05)
[2024-12-21] MEDS ORDERED: HOME MED LIST COMPLETE! XX SCH (19:10)
[2024-12-21] MEDS ORDERED: ONDANSETRON 4MG 2ML VIAL IV PRN (21:20)
[2024-12-21] MEDS: D5W/0.45% SODIUM CHLORIDE 1,000 ML IV SCH (22:01)
[2024-12-21] MEDS: MORPHINE 2 MG/ML 1 ML VIAL IV PRN (22:01)
[2024-12-22] VITALS (8 sets, daily range): BP systolic 106–126; BP diastolic 58–72; TEMP 97.6–99; O2SAT 93–98
[2024-12-22] MEDS: ACETAMINOPHEN 325 MG TAB PO SCH (00:18)
[2024-12-22] MEDS ORDERED: MOM 30 ML SUSPENSION UDC PO PRN (01:05)
[2024-12-22] MEDS: MORPHINE 4 MG/ML 1 ML VIAL IV ONE (03:05)
[2024-12-22 07:45] LABS: PLATELET COUNT, AUTOMATED 516 10^3/uL (150-450)
[2024-12-22 08:09] LABS: ALT/SGPT 25 U/L (7.0-40); AST/SGOT 42 U/L (<34); CALCIUM LEVEL 8.3 MG/DL (8.5-10.1); CARBON DIOXIDE LEVEL 24 MMOL/L (20-31); CHLORIDE LEVEL 110 MMOL/L (98-107); CREATININE FOR GFR 0.48 MG/DL (0.55-1.30); GLOMERULAR FILTRATION RATE > 90.0 (>60); POTASSIUM SERUM 4.7 MMOL/L (3.5-5.1); SODIUM LEVEL 142 MMOL/L (136-145)
[2024-12-22] MEDS: NS (Normal Saline) 0.9% 1,000 ML IV SCH (08:15)
[2024-12-22 08:23] LABS: EOSINOPHILS 8 % (0-3); LYMPHOCYTES 39 % (16-44); MONOCYTES 2 % (0-5); NEUTROPHILS 51 % (28-66)
[2024-12-22 08:40] LABS: PLATELET ESTIMATE INCREASED (NORMAL)
[2024-12-22] MEDS: FOLIC ACID 1 MG TAB PO SCH (08:57)
[2024-12-22] MEDS: DOCUSATE SODIUM 100 MG CAPSULE PO SCH (08:57)
[2024-12-22 19:31] LABS: PLATELET COUNT, AUTOMATED 544 10^3/uL (150-450)
== END 2024-12-22 20:40 | disposition home or self-care (01) ==
LOC: M ED 12:24 → M ED INP 12:25 → M MS4PR 12-22 00:55
PROVIDERS: ADMIT Student in an Organized Health Care Education/Training Program; ATTEND Student in an Organized Health Care Education/Training Program
DX: D57.00 Hb-SS disease with crisis, unspecified (principal); J45.909 Unspecified asthma, uncomplicated; Z79.899 Other long term (current) drug therapy
CPT/HCPCS: 36415; 36430; 71046; 80048; 80053; 80076; 82550; 82553; 83690; 84145; 84484; 84703; 85025; 85027; 85046; 86850; 86900; 86901; 86920; 93005; 93041; 94760; 96361; 96374; 96375; 96376; 99285; J1885; P9016

== ENCOUNTER 2025-03-19 10:32 | Inpatient (IN) | payer BC, OTHER ==
[~2025-03-19] VITALS: Ht 165.1 cm; Wt 81.2 kg
[2025-03-19] VITALS (7 sets, daily range): BP systolic 96–116; BP diastolic 53–56; TEMP 97.5–98.1; O2SAT 96–98
[~2025-03-19 10:32] MED LIST changes: +CHOL4POW26 PO; +MAGN1TAB26 PO; +OXYC1TAB23
[2025-03-19] MEDS ORDERED: OXYC-517 PO (10:53)
[2025-03-19 11:54] LABS: BASO # 0.1 10^3/uL (0.0-0.2); BASO % 0.8 % (0.0-1.0); EOS # 1.3 10^3/uL (0.0-0.5); EOS % 12.8 % (0.0-3.0); LYMPH # 3.4 10^3/uL (1.5-5.0); LYMPH % 33.4 % (24.0-44.0); MONO # 0.6 10^3/uL (0.0-0.8); MONO % 5.8 % (2.0-8.0); NEUTROPHILS # 4.8 10^3/uL (1.5-8.5); NEUTROPHILS % 46.8 % (36.0-66.0); PLATELET COUNT, AUTOMATED 420 10^3/uL (150-450)
[2025-03-19 12:19] LABS: HCG, SERUM QUALITATIVE NEGATIVE (NEGATIVE); INR 0.93
[2025-03-19 12:22] LABS: ALT/SGPT 37 U/L (7.0-40); AST/SGOT 60 U/L (<34); CALCIUM LEVEL 8.5 MG/DL (8.5-10.1); CARBON DIOXIDE LEVEL 24 MMOL/L (20-31); CHLORIDE LEVEL 108 MMOL/L (98-107); CK-MB VALUE MASS < 1.0 NG/ML (<3.6); CREATININE FOR GFR 0.47 MG/DL (0.55-1.30); GLOMERULAR FILTRATION RATE > 90.0 (>60); POTASSIUM SERUM 4.5 MMOL/L (3.5-5.1); SODIUM LEVEL 140 MMOL/L (136-145)
[2025-03-19 12:24] LABS: FREE T4 1.14 NG/DL (0.89-1.76)
[2025-03-19 12:26] LABS: CPK CREATINE PHOSPHOKINASE 44 U/L (34-145)
[2025-03-19] MEDS: NS 500 ML IV ONE (12:27)
[2025-03-19] MEDS: NS (Normal Saline) 0.9% 1,000 ML IV SCH (13:11)
[2025-03-19] MEDS: MORPHINE 4 MG/ML 1 ML VIAL IV ONE ×2 (13:11→17:19)
[2025-03-19] MEDS ORDERED: ISOVUE-370 76% 100 ML VIAL As Ordered ONE (13:19)
[2025-03-19 14:13] LABS: CK-MB VALUE MASS < 1.0 NG/ML (<3.6)
[2025-03-19 14:18] LABS: CPK CREATINE PHOSPHOKINASE 35 U/L (34-145)
[2025-03-19] MEDS ORDERED: HOME MED LIST COMPLETE! XX SCH (16:50)
[2025-03-19] MEDS ORDERED: MORPHINE 4 MG/ML 1 ML VIAL IV PRN ×2 (17:10)
[2025-03-19] MEDS ORDERED: ACETAMINOPHEN 325 MG TAB PO PRN (17:10)
[2025-03-19] MEDS ORDERED: MOM 30 ML SUSPENSION UDC PO PRN (17:10)
[2025-03-19 18:41] LABS: MAGNESIUM LEVEL 1.7 MG/DL (1.8-2.4)
[2025-03-19 19:58] LABS: INR 0.97
[2025-03-19] MEDS: DOCUSATE SODIUM 100 MG CAPSULE PO SCH (20:49)
[2025-03-19] MEDS: SENNA 8.6 MG TAB PO SCH (20:49)
[2025-03-19] MEDS: HYDROmorphone HCL 2 MG/ML 1 ML VIAL IV PRN (21:49)
[2025-03-20 00:23] VITALS: BP 100/52; TEMP 97.2; O2SAT 97
[2025-03-20 01:35] VITALS: BP 101/51; TEMP 97.4; O2SAT 96
[2025-03-20 03:14] LABS: PLATELET COUNT, AUTOMATED 400 10^3/uL (150-450)
[2025-03-20] MEDS: ONDANSETRON 4MG/2ML VIAL IV PRN (03:34)
[2025-03-20 04:09] VITALS: BP 111/52; TEMP 98.3; O2SAT 95
[2025-03-20 06:10] LABS: CALCIUM LEVEL 8.3 MG/DL (8.5-10.1); CARBON DIOXIDE LEVEL 23 MMOL/L (20-31); CHLORIDE LEVEL 110 MMOL/L (98-107); CREATININE FOR GFR 0.52 MG/DL (0.55-1.30); GLOMERULAR FILTRATION RATE > 90.0 (>60); POTASSIUM SERUM 5.0 MMOL/L (3.5-5.1); SODIUM LEVEL 143 MMOL/L (136-145)
[2025-03-20 06:27] LABS: PLATELET COUNT, AUTOMATED 406 10^3/uL (150-450)
[2025-03-20 06:48] VITALS: O2SAT 96
[2025-03-20] MEDS ORDERED: MORPHINE 2 MG/ML 1 ML VIAL IV PRN ×2 (07:30→11:30)
[2025-03-20] MEDS: KETOROLAC 30 MG/ML 1 ML VIAL IV ONE (08:41)
[2025-03-20] MEDS: ENOXAPARIN 40 MG/0.4 ML SYRINGE (J1650 PER 10MG) SC SCH (08:42)
[2025-03-20 12:00] VITALS: BP 116/74; TEMP 97.3; O2SAT 98
[2025-03-20] MEDS: MORPHINE 4 MG/ML 1 ML VIAL IV PRN (13:42)
[2025-03-20 20:13] VITALS: BP 106/65; TEMP 98.2; O2SAT 98
[2025-03-21] MEDS: HYDROMORPHONE HCL 0.5 MG/0.5 ML SYRINGE IV STA (01:33)
[2025-03-21 04:10] VITALS: BP 110/56; TEMP 97.3; O2SAT 99
[2025-03-21 06:19] LABS: PLATELET COUNT, AUTOMATED 378 10^3/uL (150-450)
[2025-03-21 06:54] LABS: ALT/SGPT 33 U/L (7.0-40); AST/SGOT 52 U/L (<34); CALCIUM LEVEL 8.6 MG/DL (8.5-10.1); CARBON DIOXIDE LEVEL 25 MMOL/L (20-31); CHLORIDE LEVEL 108 MMOL/L (98-107); CREATININE FOR GFR 0.47 MG/DL (0.55-1.30); GLOMERULAR FILTRATION RATE > 90.0 (>60); POTASSIUM SERUM 4.7 MMOL/L (3.5-5.1); SODIUM LEVEL 142 MMOL/L (136-145)
[2025-03-21] MEDS ORDERED: OXYC-517 PO (07:59)
== END 2025-03-21 09:50 | disposition home or self-care (01) | DRG 812 ==
LOC: M ED 10:32 → M ED INP 10:33 → OBSVTOIN 10:48 → M MS4PR 20:30
PROVIDERS: ADMIT Internal Medicine; ATTEND Internal Medicine
PROC: 30233N1 Transfusion of Nonautologous Red Blood Cells into Peripheral Vein, Percutaneous Approach (ICD-10-PCS; principal; 2025-03-19)
DX: D57.00 Hb-SS disease with crisis, unspecified (principal); J45.909 Unspecified asthma, uncomplicated; Z90.49 Acquired absence of other specified parts of digestive tract; R01.1 Cardiac murmur, unspecified; Z79.891 Long term (current) use of opiate analgesic; Z91.013 Allergy to seafood; Z91.018 Allergy to other foods; Z91.048 Other nonmedicinal substance allergy status; R51.9 Headache, unspecified; T40.2X5A Adverse effect of other opioids, initial encounter